=== PATIENT | female | born 1955 | race Caucasian/White ===

== ENCOUNTER 2017-04-11 20:30 | Inpatient (IN) | payer OTHER ==
[2017-04-11 21:58] LABS: URINE BLOOD (Dip) POC Negative (NEGATIVE); URINE GLUCOSE (Dip) POC Negative (NEGATIVE); URINE KETONES (Dip) POC Negative (NEGATIVE); URINE LEUKOCYTE EST (Dip) POC Trace (NEGATIVE); URINE NITRITE (Dip) POC Negative (NEGATIVE); URINE TOTAL PROTEIN POC 3+ (NEGATIVE)
[2017-04-11] MEDS: ONDANSETRON 4 MG INJ IV (22:13)
[2017-04-11] MEDS: SOD CHLORIDE 0.9% 1,000 ML IV (22:14)
[2017-04-11] MEDS: morphine 4 MG/ML VIAL IV ×2 (22:14→23:26)
[2017-04-11 22:15] LABS: ADD UMIC YES; UR ASCORBIC ACID 40 mg/dL (NEGATIVE); UR BILIRUBIN (Dip) NEGATIVE (NEGATIVE); UR BLOOD (Dip) NEGATIVE (NEGATIVE); UR CLARITY CLEAR (CLEAR); UR COLOR YELLOW (YELLOW); UR GLUCOSE (Dip) 1+ mg/dL (NEGATIVE); UR KETONES (Dip) NEGATIVE (NEGATIVE); UR LEUKOCYTE ESTERASE (Dip) 1+ Leu/ul (NEGATIVE); UR NITRITE (Dip) NEGATIVE (NEGATIVE); UR RBC 0 /HPF (0-5); UR SPECIFIC GRAVITY (Dip) 1.011 (1.003-1.030); UR TOTAL PROTEIN (Dip) 3+ mg/dl (NEGATIVE); UR UROBILINOGEN (Dip) NEGATIVE (NEGATIVE); UR WBC 10 /HPF (0-5)
[2017-04-11 22:35] LABS: ADD MAN DIFF? NO
[2017-04-11 22:39] LABS: EOSINOPHILS # 0.4 10^3/ul (0.0-0.5); EOSINOPHILS % 6.4 % (0.0-7.0); HEMATOCRIT 25.8 % (37.0-47.0); HEMOGLOBIN 7.8 g/dl (12.0-16.0); LYMPHOCYTES # 2.3 10^3/ul (0.8-2.9); LYMPHOCYTES % 34.1 % (15.0-51.0); MEAN CORPUSCULAR HEMOGLOBIN 27.9 pg (29.0-33.0); MEAN CORPUSCULAR HGB CONC 30.2 g/dl (32.0-37.0); MEAN CORPUSCULAR VOLUME 92.1 fl (82.0-101.0); MEAN PLATELET VOLUME 9.8 fl (7.4-10.4); MONOCYTE # 0.7 10^3/ul (0.3-0.9); MONOCYTES % 9.6 % (0.0-11.0); NEUTROPHIL # 3.3 10^3/ul (1.6-7.5); NEUTROPHILS % 48.7 % (39.0-77.0); NUCLEATED RED BLOOD CELLS% 0.3 /100WBC (0.0-0.0); PLATELET COUNT 235 10^3/UL (140-415); RED CELL DISTRIBUTION WIDTH 16.4 % (11.5-14.5)
[2017-04-11 22:39] LABS: WHITE BLOOD COUNT 6.8 10^3/ul (4.8-10.8)
[2017-04-11 23:03] LABS: LACTIC ACID 0.7 mmol/L (0.5-2.0)
[2017-04-11 23:04] LABS: ALANINE AMINOTRANSFERASE 47 IU/L (13-69); ALBUMIN 2.9 g/dl (3.3-4.9); ALBUMIN/GLOBULIN RATIO 0.82; ALKALINE PHOSPHATASE 111 IU/L (42-121); ANION GAP 18 (8-16); ASPARTATE AMINO TRANSFERASE 22 IU/L (15-46); BLOOD UREA NITROGEN 119 mg/dl (7-20); CALCIUM 8.3 mg/dl (8.4-10.2); CARBON DIOXIDE 12 mmol/L (21-31); CHLORIDE 109 mmol/L (97-110); CREATININE 5.78 mg/dl (0.44-1.00); GLUCOSE 110 mg/dl (70-220); LIPASE 325 U/L (23-300); POTASSIUM 5.1 mmol/L (3.5-5.1); SODIUM 134 mmol/L (135-144); TOTAL PROTEIN 6.4 g/dl (6.1-8.1)
[2017-04-11 23:15] LABS: TROPONIN-I 0.018 ng/ml (0.00-0.12)
[2017-04-11] MEDS ORDERED: ACETAMINOPHEN 325 MG TAB PO (23:30)
[2017-04-11] MEDS ORDERED: ONDANSETRON 4 MG INJ IV (23:30)
[2017-04-11] MEDS: NA BICARBONATE 8.4% 50 ML SYG IV (23:49)
[2017-04-12] MEDS ORDERED: DIPHENHYDRAMINE 50 MG INJ (03:21)
[2017-04-12] MEDS: DIPHENHYDRAMINE 50 MG INJ IV (03:29)
[2017-04-12 07:33] LABS: ALANINE AMINOTRANSFERASE 61 IU/L (13-69); ALBUMIN 3.1 g/dl (3.3-4.9); ALBUMIN/GLOBULIN RATIO 0.79; ALKALINE PHOSPHATASE 126 IU/L (42-121); ANION GAP 19 (8-16); ASPARTATE AMINO TRANSFERASE 41 IU/L (15-46); CALCIUM 8.2 mg/dl (8.4-10.2); CARBON DIOXIDE 13 mmol/L (21-31); CHLORIDE 111 mmol/L (97-110); CREATININE 5.92 mg/dl (0.44-1.00); GLUCOSE 152 mg/dl (70-220); PHOSPHORUS 8.6 mg/dl (2.5-4.9); POTASSIUM 5.4 mmol/L (3.5-5.1); SODIUM 138 mmol/L (135-144)
[2017-04-12 07:43] LABS: BLOOD UREA NITROGEN 118 mg/dl (7-20)
[2017-04-12] MEDS ORDERED: FUROSEMIDE 40 MG INJ (07:53)
[2017-04-12] MEDS: FUROSEMIDE 20 MG INJ IV ×2 (08:45→21:00)
[2017-04-12] MEDS: CITRIC ACID/SODIUM CITRATE 15 ML CUP PO ×2 (09:00→13:00)
[2017-04-12] MEDS ORDERED: GLUCOSE GEL 15 GRAM TUBE BUCCAL (15:30)
[2017-04-12] MEDS ORDERED: GLUCOSE GEL 15 GRAM TUBE PO ×2 (15:30)
[2017-04-12] MEDS ORDERED: ACETAMINOPHEN 325 MG TAB PO (15:30)
[2017-04-12] MEDS ORDERED: DOCUSATE SODIUM 100 MG CAP PO (15:30)
[2017-04-12] MEDS ORDERED: GLUCAGON 1 MG INJ IM (15:30)
[2017-04-12] MEDS ORDERED: BISACODYL (EC) 5 MG TAB PO (15:30)
[2017-04-12] MEDS ORDERED: DEXTROSE 50% 50 ML SYRINGE IV ×2 (15:30)
[2017-04-12] MEDS ORDERED: NACL 0.9% 3 ML SYG IV (15:30)
[2017-04-12] MEDS ORDERED: DIPHENHYD/MYLANTA/LIDO (PO SYG) PO (15:30)
[2017-04-12 17:06] LABS: HAAIG REFLEX REFLEX FILED
[2017-04-12] MEDS: INSULIN ASPART [NOVOLOG] 3 ML PEN SC (17:35)
[2017-04-12] MEDS ORDERED: INSULIN ASPART [NOVOLOG] 3 ML PEN SC (17:35)
[2017-04-12] MEDS: CALCIUM ACETATE 667 MG CAP PO (17:35)
[2017-04-12 18:01] LABS: HEPATITIS B SURFACE ANTIGEN NEGATIVE (NEGATIVE)
[2017-04-12 18:19] LABS: HEPATITIS B CORE ANTIBODY NEGATIVE (NEGATIVE); HEPATITIS C VIRAL ANTIBODY NEGATIVE (NEGATIVE)
[2017-04-12] MEDS: MAGNESIUM HYDROXIDE 30ML CUP PO (21:10)
[2017-04-12] MEDS: GABAPENTIN 300 MG CAP PO (21:10)
[2017-04-12] MEDS: FERROUS SULFATE (EC) 325 MG TAB PO (21:10)
[2017-04-12] MEDS: INSULIN GLARGINE [LANtus] 3 ML PEN SC (21:43)
[2017-04-12] MEDS: EPOETIN 10000 UNITS/1 ML INJ (ESRD) SC (23:22)
[2017-04-13] MEDS: CITRIC ACID/SODIUM CITRATE 15 ML CUP PO ×6 (00:38→20:34)
[2017-04-13] MEDS: DIPHENHYDRAMINE 2.5 MG/ML 5ML CUP PO (00:39)
[2017-04-13] MEDS: ACCU-CHEK XX (02:00)
[2017-04-13] MEDS: FUROSEMIDE 20 MG INJ IV ×2 (05:16→17:44)
[2017-04-13] MEDS: PANTOPRAZOLE (EC) 40 MG TAB PO (05:17)
[2017-04-13] MEDS: INSULIN ASPART [NOVOLOG] 3 ML PEN SC ×4 (07:55→20:44)
[2017-04-13] MEDS: CALCIUM ACETATE 667 MG CAP PO ×3 (08:10→17:40)
[2017-04-13] MEDS ORDERED: BISOPROLOL 5 MG TAB PO (09:00)
[2017-04-13] MEDS ORDERED: POTASSIUM CHLORIDE (SR) 20 MEQ TAB PO (09:00)
[2017-04-13] MEDS: ENOXAPARIN 30 MG/0.3 ML SYG SC (09:00)
[2017-04-13] MEDS ORDERED: AMLODIPINE 10 MG TAB PO (09:00)
[2017-04-13] MEDS: GABAPENTIN 300 MG CAP PO ×2 (09:23→20:35)
[2017-04-13] MEDS: FERROUS SULFATE (EC) 325 MG TAB PO ×3 (09:23→20:34)
[2017-04-13] MEDS: ASCORBIC ACID 500 MG TAB PO (09:23)
[2017-04-13] MEDS: BISOPROLOL 5 MG TAB PO (09:23)
[2017-04-13] MEDS: LORATADINE 10 MG TAB PO (09:24)
[2017-04-13] MEDS: AMLODIPINE 10 MG TAB PO (09:24)
[2017-04-13] MEDS: ZINC SULFATE 220 MG CAP PO (09:24)
[2017-04-13 10:42] LABS: HEMOGLOBIN A1C 5.5 % (0-5.9)
[2017-04-13] MEDS: LOSARTAN 50 MG TAB PO (12:11)
[2017-04-13] MEDS: MANNITOL 25% 50 ML INJ IV* (14:02)
[2017-04-13] MEDS: MAGNESIUM HYDROXIDE 30ML CUP PO (20:34)
[2017-04-13] MEDS: INSULIN GLARGINE [LANtus] 3 ML PEN SC (20:49)
[2017-04-13] MEDS: ACETAMINOPHEN 325 MG TAB PO (21:27)
[2017-04-14] MEDS: ACCU-CHEK XX (02:00)
[2017-04-14] MEDS: PANTOPRAZOLE (EC) 40 MG TAB PO (05:47)
[2017-04-14] MEDS: FUROSEMIDE 20 MG INJ IV ×2 (05:50→17:34)
[2017-04-14] MEDS: INSULIN ASPART [NOVOLOG] 3 ML PEN SC ×4 (07:55→20:48)
[2017-04-14 08:13] LABS: ADD MAN DIFF? NO
[2017-04-14 08:31] LABS: BASOPHILS % 0.3 % (0.0-2.0); EOSINOPHILS # 0.2 10^3/ul (0.0-0.5); EOSINOPHILS % 2.2 % (0.0-7.0); HEMATOCRIT 28.2 % (37.0-47.0); HEMOGLOBIN 8.4 g/dl (12.0-16.0); LYMPHOCYTES # 1.4 10^3/ul (0.8-2.9); LYMPHOCYTES % 21.2 % (15.0-51.0); MEAN CORPUSCULAR HEMOGLOBIN 27.7 pg (29.0-33.0); MEAN CORPUSCULAR HGB CONC 29.8 g/dl (32.0-37.0); MEAN CORPUSCULAR VOLUME 93.1 fl (82.0-101.0); MEAN PLATELET VOLUME 9.8 fl (7.4-10.4); MONOCYTE # 0.8 10^3/ul (0.3-0.9); MONOCYTES % 11.4 % (0.0-11.0); NEUTROPHIL # 4.3 10^3/ul (1.6-7.5); NEUTROPHILS % 64.2 % (39.0-77.0); NUCLEATED RED BLOOD CELLS # 0.1 10^3/ul (0.0-0.0); NUCLEATED RED BLOOD CELLS% 0.7 /100WBC (0.0-0.0); PLATELET COUNT 141 10^3/UL (140-415); RED BLOOD COUNT 3.03 10^6/ul (4.20-5.40); RED CELL DISTRIBUTION WIDTH 17.2 % (11.5-14.5)
[2017-04-14 08:31] LABS: WHITE BLOOD COUNT 6.8 10^3/ul (4.8-10.8)
[2017-04-14 08:49] LABS: ANION GAP 19 (8-16); BLOOD UREA NITROGEN 92 mg/dl (7-20); CALCIUM 8.4 mg/dl (8.4-10.2); CARBON DIOXIDE 21 mmol/L (21-31); CHLORIDE 108 mmol/L (97-110); CREATININE 5.16 mg/dl (0.44-1.00); GLUCOSE 123 mg/dl (70-220); POTASSIUM 4.5 mmol/L (3.5-5.1); SODIUM 143 mmol/L (135-144)
[2017-04-14] MEDS: CALCIUM ACETATE 667 MG CAP PO ×3 (09:13→17:33)
[2017-04-14] MEDS: CITRIC ACID/SODIUM CITRATE 15 ML CUP PO ×3 (09:13→20:34)
[2017-04-14] MEDS: LORATADINE 10 MG TAB PO (09:13)
[2017-04-14] MEDS: FERROUS SULFATE (EC) 325 MG TAB PO ×3 (09:14→20:33)
[2017-04-14] MEDS: GABAPENTIN 300 MG CAP PO ×2 (09:14→20:33)
[2017-04-14] MEDS: LOSARTAN 50 MG TAB PO (09:14)
[2017-04-14] MEDS: ASCORBIC ACID 500 MG TAB PO (09:14)
[2017-04-14] MEDS: BISOPROLOL 5 MG TAB PO (09:14)
[2017-04-14] MEDS: ZINC SULFATE 220 MG CAP PO (09:14)
[2017-04-14] MEDS: AMLODIPINE 10 MG TAB PO (09:17)
[2017-04-14] MEDS: ENOXAPARIN 30 MG/0.3 ML SYG SC (09:29)
[2017-04-14 09:46] LABS: B-TYPE NATRIURETIC PEPTIDE 36600 PG/ML (0-125)
[2017-04-14] MEDS: MAGNESIUM HYDROXIDE 30ML CUP PO ×2 (20:34→21:00)
[2017-04-14] MEDS: INSULIN GLARGINE [LANtus] 3 ML PEN SC (20:39)
[2017-04-15] MEDS: ACCU-CHEK XX (03:31)
[2017-04-15] MEDS: FUROSEMIDE 20 MG INJ IV ×2 (06:42→17:32)
[2017-04-15] MEDS: PANTOPRAZOLE (EC) 40 MG TAB PO (06:44)
[2017-04-15] MEDS: INSULIN ASPART [NOVOLOG] 3 ML PEN SC ×4 (07:55→20:56)
[2017-04-15] MEDS: ASCORBIC ACID 500 MG TAB PO (08:54)
[2017-04-15] MEDS: CALCIUM ACETATE 667 MG CAP PO ×3 (08:54→17:31)
[2017-04-15] MEDS: CITRIC ACID/SODIUM CITRATE 15 ML CUP PO (08:54)
[2017-04-15] MEDS: LORATADINE 10 MG TAB PO (08:54)
[2017-04-15] MEDS: FERROUS SULFATE (EC) 325 MG TAB PO ×3 (08:55→21:00)
[2017-04-15] MEDS: ZINC SULFATE 220 MG CAP PO (08:55)
[2017-04-15] MEDS: GABAPENTIN 300 MG CAP PO ×2 (08:55→21:00)
[2017-04-15] MEDS: BISOPROLOL 5 MG TAB PO (08:55)
[2017-04-15] MEDS: AMLODIPINE 10 MG TAB PO (09:00)
[2017-04-15] MEDS: LOSARTAN 50 MG TAB PO (09:00)
[2017-04-15] MEDS: ENOXAPARIN 30 MG/0.3 ML SYG SC (09:12)
[2017-04-15] MEDS: ACETAMINOPHEN 325 MG TAB PO (12:33)
[2017-04-15] MEDS: EPOETIN 10000 UNITS/1 ML INJ (ESRD) SC (17:31)
[2017-04-15 18:17] LABS: PTH CALCIUM 8.1 mg/dL (8.6-10.4)
[2017-04-15 20:13] LABS: ABNORMAL IP MESSAGE 1; HEMATOCRIT 19.2 % (37.0-47.0); MEAN CORPUSCULAR HEMOGLOBIN 28.9 pg (29.0-33.0); MEAN CORPUSCULAR HGB CONC 30.2 g/dl (32.0-37.0); MEAN CORPUSCULAR VOLUME 95.5 fl (82.0-101.0); MEAN PLATELET VOLUME 10.7 fl (7.4-10.4); NUCLEATED RED BLOOD CELLS% 1.8 /100WBC (0.0-0.0); RED BLOOD COUNT 2.01 10^6/ul (4.20-5.40); RED CELL DISTRIBUTION WIDTH 17.4 % (11.5-14.5)
[2017-04-15 20:13] LABS: WHITE BLOOD COUNT 8.7 10^3/ul (4.8-10.8)
[2017-04-15 20:30] LABS: ADD MAN DIFF? YES; PLATELET COUNT 52 10^3/UL (140-415); POSITIVE DIFF @See below
[2017-04-15 20:34] LABS: HEMOGLOBIN 5.8 g/dl (12.0-16.0)
[2017-04-15 20:49] LABS: ANISOCYTOSIS 1+ (0-0); EOSINOPHILS % (M) 2 % (0-7); ERYTHROBLAST% (NRBC) (M) 4 % (0-0); GIANT THROMBO% (M) 1 % (0-0); LYMPHOCYTES #M 5.8 10^3/ul (0.8-2.9); LYMPHOCYTES % (M) 67 % (15-51); MICROCYTOSIS 1+ (0-0); MONOCYTE #M 0.1 10^3/ul (0.3-0.9); MONOCYTES % (M) 2 % (0-11); PLATELET MORPHOLOGY COMMENT @See below; REACTIVE LYMPHOCYTES% (M) 1 % (0-0); SEGMENTED NEUTROPHILS (M) % 28 % (39-77); SMUDGE%M 17 % (0-0)
[2017-04-15] MEDS: INSULIN GLARGINE [LANtus] 3 ML PEN SC (20:57)
[2017-04-15] MEDS: SOD CHLORIDE 0.9% 500 ML IV (20:59)
[2017-04-15] MEDS: MAGNESIUM HYDROXIDE 30ML CUP PO (21:00)
[2017-04-15 21:19] LABS: PATH REVIEW? YES
[2017-04-15 21:58] LABS: AADO2 Arterial 31.3 mmHg (7.0-24.0); Arterial Blood Gas Oxygen Sat 98.4 mmHG (95.0-98.0); Arterial COHb 0.3 % (0.0-3.0); Arterial Fraction of Oxyhgb 97.7 % (93.0-99.0); Arterial HCO3 17.4 mmol/L (22.0-26.0); Arterial MetHb 0.4 % (0.0-1.5); Arterial Total Hemglobin 6.7 g/dl (12.0-18.0); Arterial pCO2 34.5 mmhg (35-45); MODE NASAL CANNULA; Site LB
[2017-04-15] MEDS: ALBUMIN HUMAN 25% 50 ML IV (23:13)
[2017-04-15] MEDS: SOD CHLORIDE 0.9% 1,000 ML IV (23:14)
[2017-04-16] MEDS ORDERED: NORepinephrine 8MG/250 ML (PMX 250 ML (01:29)
[2017-04-16] MEDS: NORepinephrine 8MG/250 ML (PMX 250 ML IV (01:39)
[2017-04-16] MEDS: ACCU-CHEK XX (02:00)
[2017-04-16 04:32] LABS: IMMEDIATE SPIN CROSSMATCH 1
[2017-04-16] MEDS: FUROSEMIDE 20 MG INJ IV (05:24)
[2017-04-16] MEDS: PANTOPRAZOLE (EC) 40 MG TAB PO (05:25)
[2017-04-16 05:54] LABS: ADD MAN DIFF? NO
[2017-04-16 06:07] LABS: WHITE BLOOD COUNT 14.2 10^3/ul (4.8-10.8)
[2017-04-16 06:07] LABS: ABNORMAL IP MESSAGE 1; HEMATOCRIT 30.7 % (37.0-47.0); HEMOGLOBIN 9.8 g/dl (12.0-16.0); MEAN CORPUSCULAR HEMOGLOBIN 30.1 pg (29.0-33.0); MEAN CORPUSCULAR HGB CONC 31.9 g/dl (32.0-37.0); MEAN CORPUSCULAR VOLUME 94.2 fl (82.0-101.0); MEAN PLATELET VOLUME 11.7 fl (7.4-10.4); NUCLEATED RED BLOOD CELLS% 4.9 /100WBC (0.0-0.0); PLATELET COUNT 63 10^3/UL (140-415); RED BLOOD COUNT 3.26 10^6/ul (4.20-5.40); RED CELL DISTRIBUTION WIDTH 15.9 % (11.5-14.5)
[2017-04-16 06:14] LABS: POSITIVE DIFF @See below
[2017-04-16 06:30] LABS: INR 2.33; PROTIME 26.2 Sec (11.9-14.9)
[2017-04-16 06:45] LABS: PHOSPHORUS 8.1 mg/dl (2.5-4.9)
[2017-04-16 06:57] LABS: ANION GAP 18 (8-16); BLOOD UREA NITROGEN 57 mg/dl (7-20); CALCIUM 8.5 mg/dl (8.4-10.2); CARBON DIOXIDE 20 mmol/L (21-31); CHLORIDE 107 mmol/L (97-110); CREATININE 4.12 mg/dl (0.44-1.00); GLUCOSE 92 mg/dl (70-220); POTASSIUM 4.4 mmol/L (3.5-5.1); SODIUM 141 mmol/L (135-144)
[2017-04-16] MEDS: INSULIN ASPART [NOVOLOG] 3 ML PEN SC ×4 (07:35→21:00)
[2017-04-16] MEDS: CALCIUM ACETATE 667 MG CAP PO ×3 (07:35→17:14)
[2017-04-16 08:01] LABS: PTH INTACT 80 pg/mL (14-64)
[2017-04-16 08:04] LABS: ANISOCYTOSIS 2+ (0-0); BAND NEUTROPHILS #M 3.6 10^3/ul (0.0-0.6); BAND NEUTROPHILS % (M) 26 % (0-4); BURR CELLS 2+ (0-0); ERYTHROBLAST% (NRBC) (M) 5 % (0-0); LYMPHOCYTES #M 1.5 10^3/ul (0.8-2.9); LYMPHOCYTES % (M) 11 % (15-51); MICROCYTOSIS 1+ (0-0); MONOCYTE #M 0.1 10^3/ul (0.3-0.9); MONOCYTES % (M) 1 % (0-11); PLATELET ESTIMATE DECREASED; POIKILOCYTOSIS 3+ (0-0); POLYCHROMASIA 2+ (0-0); SEG NEUT #M 9.3 10^3/ul (1.7-7.5); SEGMENTED NEUTROPHILS (M) % 62 % (39-77); SMUDGE%M 2 % (0-0)
[2017-04-16] MEDS: BISOPROLOL 5 MG TAB PO (09:00)
[2017-04-16] MEDS: ASCORBIC ACID 500 MG TAB PO (09:00)
[2017-04-16] MEDS: ZINC SULFATE 220 MG CAP PO (09:00)
[2017-04-16] MEDS: AMLODIPINE 10 MG TAB PO (09:00)
[2017-04-16] MEDS: FERROUS SULFATE (EC) 325 MG TAB PO ×3 (09:00→21:00)
[2017-04-16] MEDS: LOSARTAN 50 MG TAB PO (09:00)
[2017-04-16] MEDS: SOD CHLORIDE 0.9% 1,000 ML IV (10:00)
[2017-04-16] MEDS: ALBUMIN HUMAN 25% 100 ML IV ×2 (11:06→21:14)
[2017-04-16 13:32] LABS: OCCULT BLOOD STOOL POSITIVE (NEGATIVE)
[2017-04-16] MEDS: metroNIDAZOLE 500 MG TAB PO ×2 (14:00→22:00)
[2017-04-16 14:38] LABS: PATH REVIEW CH
[2017-04-16] MEDS ORDERED: VANCOMYCIN IV PER PHARMACY XX (15:30)
[2017-04-16 15:53] LABS: ADD MAN DIFF? NO
[2017-04-16 15:56] LABS: WHITE BLOOD COUNT 12.3 10^3/ul (4.8-10.8)
[2017-04-16 15:56] LABS: ABNORMAL IP MESSAGE 1; HEMATOCRIT 31.8 % (37.0-47.0); HEMOGLOBIN 10.4 g/dl (12.0-16.0); MEAN CORPUSCULAR HEMOGLOBIN 29.1 pg (29.0-33.0); MEAN CORPUSCULAR HGB CONC 32.7 g/dl (32.0-37.0); MEAN CORPUSCULAR VOLUME 89.1 fl (82.0-101.0); MEAN PLATELET VOLUME 11.3 fl (7.4-10.4); NUCLEATED RED BLOOD CELLS% 1.2 /100WBC (0.0-0.0); PLATELET COUNT 61 10^3/UL (140-415); RED BLOOD COUNT 3.57 10^6/ul (4.20-5.40); RED CELL DISTRIBUTION WIDTH 16.5 % (11.5-14.5)
[2017-04-16 16:01] LABS: POSITIVE DIFF @See below
[2017-04-16 16:03] LABS: AADO2 Arterial 64.3 mmHg (7.0-24.0); Allen Test ACCEPTAB; Arterial Base Excess -2.8 mmol/L (-3.0-3); Arterial Blood Gas Oxygen Sat 95.4 mmHG (95.0-98.0); Arterial COHb 0 % (0.0-3.0); Arterial Fraction of Oxyhgb 95.2 % (93.0-99.0); Arterial HCO3 22.5 mmol/L (22.0-26.0); Arterial MetHb 0.2 % (0.0-1.5); Arterial Total Hemglobin 10.8 g/dl (12.0-18.0); Arterial pCO2 41.4 mmhg (35-45); MODE NASAL CANNULA; Site Left Radial
[2017-04-16 16:21] LABS: AMMONIA 16 umol/l (9-30); AMYLASE 256 U/L (11-123)
[2017-04-16 16:21] LABS: CREATINE KINASE 222 IU/L (23-200); LIPASE 79 U/L (23-300)
[2017-04-16 16:34] LABS: CK INDEX 1.4; CK-MB 3.18 ng/ml (0.0-2.4)
[2017-04-16 16:59] LABS: ANISOCYTOSIS 1+ (0-0); BAND NEUTROPHILS #M 3.6 10^3/ul (0.0-0.6); BAND NEUTROPHILS % (M) 30 % (0-4); ERYTHROBLAST% (NRBC) (M) 1 % (0-0); HYPOCHROMASIA 1+ (0-0); LYMPHOCYTES #M 1.4 10^3/ul (0.8-2.9); LYMPHOCYTES % (M) 12 % (15-51); METAMYELOCYTES #M 0.3 10^3/ul (0.0-0.0); METAMYELOCYTES %M 3 % (0-0); MICROCYTOSIS 1+ (0-0); MONOCYTE #M 0.6 10^3/ul (0.3-0.9); MONOCYTES % (M) 5 % (0-11); PLATELET ESTIMATE DECREASED; POLYCHROMASIA 1+ (0-0); REACTIVE LYMPHOCYTES #M 0.1 10^3/ul (0.0-0.0); REACTIVE LYMPHOCYTES% (M) 1 % (0-0); SEG NEUT #M 6.5 10^3/ul (1.7-7.5); SEGMENTED NEUTROPHILS (M) % 49 % (39-77)
[2017-04-16] MEDS: PIPER-TAZO 2.25 GM (PMX) 50 ML IVPB ×2 (17:08→22:51)
[2017-04-16] MEDS: PHYTONADIONE 10 MG/ML INJ SC (17:09)
[2017-04-16] MEDS: VANCOMYCIN 1.5 GM in DEXTROSE 5% 500 ML IVPB (18:39)
[2017-04-16] MEDS: INFLUENZA VIRUS VACCINE 0.5 ML SYG IM* (18:41)
[2017-04-16] MEDS: MAGNESIUM HYDROXIDE 30ML CUP PO (21:00)
[2017-04-16] MEDS: INSULIN GLARGINE [LANtus] 3 ML PEN SC (21:17)
[2017-04-17] MEDS: LORAZEPAM 2 MG INJ IV (00:21)
[2017-04-17 01:51] LABS: CREATINE KINASE 322 IU/L (23-200)
[2017-04-17] MEDS: ACCU-CHEK XX (02:00)
[2017-04-17 02:02] LABS: CK INDEX 0.9; CK-MB 2.86 ng/ml (0.0-2.4)
[2017-04-17 02:10] LABS: TROPONIN-I 0.199 ng/ml (0.00-0.12)
[2017-04-17] MEDS: ALBUMIN HUMAN 25% 100 ML IV (03:00)
[2017-04-17] MEDS: PANTOPRAZOLE (EC) 40 MG TAB PO (05:36)
[2017-04-17] MEDS: metroNIDAZOLE 500 MG TAB PO ×3 (05:36→22:07)
[2017-04-17] MEDS: PIPER-TAZO 2.25 GM (PMX) 50 ML IVPB ×3 (05:39→22:07)
[2017-04-17 05:59] LABS: ABNORMAL IP MESSAGE 1; HEMATOCRIT 25.2 % (37.0-47.0); HEMOGLOBIN 8.2 g/dl (12.0-16.0); MEAN CORPUSCULAR HEMOGLOBIN 29.1 pg (29.0-33.0); MEAN CORPUSCULAR HGB CONC 32.5 g/dl (32.0-37.0); MEAN CORPUSCULAR VOLUME 89.4 fl (82.0-101.0); MEAN PLATELET VOLUME 11.6 fl (7.4-10.4); NUCLEATED RED BLOOD CELLS% 0.7 /100WBC (0.0-0.0); PLATELET COUNT 57 10^3/UL (140-415); RED BLOOD COUNT 2.82 10^6/ul (4.20-5.40)
[2017-04-17 05:59] LABS: WHITE BLOOD COUNT 6.7 10^3/ul (4.8-10.8)
[2017-04-17 06:29] LABS: CREATINE KINASE 394 IU/L (23-200)
[2017-04-17 06:30] LABS: ADD MAN DIFF? YES; POSITIVE DIFF @See below
[2017-04-17 06:31] LABS: LACTIC ACID 1.8 mmol/L (0.5-2.0)
[2017-04-17 06:38] LABS: CK INDEX 0.7
[2017-04-17 06:45] LABS: TROPONIN-I 0.224 ng/ml (0.00-0.12)
[2017-04-17 06:57] LABS: ADD UMIC YES; UR AMORPHOUS CRYSTAL FEW /HPF (NONE SEEN); UR ASCORBIC ACID NEGATIVE (NEGATIVE); UR BACTERIA FEW /HPF (NONE SEEN); UR BILIRUBIN (Dip) NEGATIVE (NEGATIVE); UR BLOOD (Dip) 1+ mg/dL (NEGATIVE); UR CLARITY CLOUDY (CLEAR); UR COLOR AMBER (YELLOW); UR GLUCOSE (Dip) NEGATIVE (NEGATIVE); UR KETONES (Dip) NEGATIVE (NEGATIVE); UR LEUKOCYTE ESTERASE (Dip) 3+ Leu/ul (NEGATIVE); UR MUCUS FEW /HPF (NONE SEEN); UR NITRITE (Dip) NEGATIVE (NEGATIVE); UR NONSQUAMOUS EPITHELIAL CELL 2 /HPF (NONE SEEN); UR RBC 29 /HPF (0-5); UR SPECIFIC GRAVITY (Dip) 1.013 (1.003-1.030); UR TOTAL PROTEIN (Dip) 3+ mg/dl (NEGATIVE); UR UROBILINOGEN (Dip) NEGATIVE (NEGATIVE); UR WBC > 182 /HPF (0-5)
[2017-04-17 07:06] LABS: ANION GAP 18 (8-16); BLOOD UREA NITROGEN 81 mg/dl (7-20); CALCIUM 8.4 mg/dl (8.4-10.2); CARBON DIOXIDE 22 mmol/L (21-31); CHLORIDE 106 mmol/L (97-110); CREATININE 4.69 mg/dl (0.44-1.00); GLUCOSE 98 mg/dl (70-220); POTASSIUM 4.2 mmol/L (3.5-5.1); SODIUM 142 mmol/L (135-144)
[2017-04-17 07:16] LABS: MAGNESIUM 2.9 mg/dl (1.7-2.5)
[2017-04-17 07:16] LABS: PHOSPHORUS 4.7 mg/dl (2.5-4.9)
[2017-04-17] MEDS: CALCIUM ACETATE 667 MG CAP PO ×3 (07:35→17:41)
[2017-04-17] MEDS: INSULIN ASPART [NOVOLOG] 3 ML PEN SC ×4 (07:35→21:00)
[2017-04-17] MEDS: ASCORBIC ACID 500 MG TAB PO (09:00)
[2017-04-17] MEDS: FERROUS SULFATE (EC) 325 MG TAB PO ×3 (09:00→21:11)
[2017-04-17] MEDS: ZINC SULFATE 220 MG CAP PO (09:00)
[2017-04-17 09:36] LABS: ANISOCYTOSIS 2+ (0-0); BAND NEUTROPHILS #M 2.6 10^3/ul (0.0-0.6); BAND NEUTROPHILS % (M) 39 % (0-4); BURR CELLS 1+ (0-0); ERYTHROBLAST% (NRBC) (M) 1 % (0-0); GIANT THROMBO% (M) 3 % (0-0); LYMPHOCYTES #M 1.4 10^3/ul (0.8-2.9); LYMPHOCYTES % (M) 21 % (15-51); METAMYELOCYTES %M 1 % (0-0); MICROCYTOSIS 1+ (0-0); MONOCYTE #M 0.2 10^3/ul (0.3-0.9); MONOCYTES % (M) 4 % (0-11); PLATELET ESTIMATE SIG DECREASED; POIKILOCYTOSIS 2+ (0-0); POLYCHROMASIA 1+ (0-0); SEG NEUT #M 2.5 10^3/ul (1.7-7.5); SEGMENTED NEUTROPHILS (M) % 35 % (39-77); SMUDGE%M 3 % (0-0)
[2017-04-17 10:15] LABS: AADO2 Arterial 76.1 mmHg (7.0-24.0); Arterial Base Excess -4.9 mmol/L (-3.0-3); Arterial Blood Gas Oxygen Sat 95.4 mmHG (95.0-98.0); Arterial COHb 0.4 % (0.0-3.0); Arterial Fraction of Oxyhgb 94.7 % (93.0-99.0); Arterial MetHb 0.3 % (0.0-1.5); Arterial Total Hemglobin 8.5 g/dl (12.0-18.0); Arterial pCO2 30.5 mmhg (35-45); MODE NASAL CANNULA; Site Right Brachial
[2017-04-17 10:34] LABS: AHG CROSSMATCH 1 4
[2017-04-17 10:41] LABS: INR 2.05; PROTIME 23.6 Sec (11.9-14.9); PT RATIO 1.8
[2017-04-17] MEDS: EPOETIN 10000 UNITS/1 ML INJ (ESRD) SC (17:42)
[2017-04-17] MEDS: IODIXANOL LOCM 100 ML BTL (17:53)
[2017-04-17] MEDS: SOD CHLORIDE 0.9% 100 ML (17:53)
[2017-04-17 18:49] LABS: WHITE BLOOD COUNT 6.5 10^3/ul (4.8-10.8)
[2017-04-17 18:49] LABS: ABNORMAL IP MESSAGE 1; HEMATOCRIT 22.5 % (37.0-47.0); HEMOGLOBIN 7.4 g/dl (12.0-16.0); MEAN CORPUSCULAR HEMOGLOBIN 29.1 pg (29.0-33.0); MEAN CORPUSCULAR HGB CONC 32.9 g/dl (32.0-37.0); MEAN CORPUSCULAR VOLUME 88.6 fl (82.0-101.0); MEAN PLATELET VOLUME 11.6 fl (7.4-10.4); NUCLEATED RED BLOOD CELLS% 0.5 /100WBC (0.0-0.0); PLATELET COUNT 59 10^3/UL (140-415); RED BLOOD COUNT 2.54 10^6/ul (4.20-5.40); RED CELL DISTRIBUTION WIDTH 17.3 % (11.5-14.5)
[2017-04-17 19:26] LABS: ADD MAN DIFF? YES; POSITIVE DIFF @See below
[2017-04-17 20:05] LABS: ANISOCYTOSIS 1+ (0-0); BAND NEUTROPHILS #M 1.4 10^3/ul (0.0-0.6); BAND NEUTROPHILS % (M) 23 % (0-4); BURR CELLS 2+ (0-0); ERYTHROBLAST% (NRBC) (M) 1 % (0-0); LYMPHOCYTES #M 1.8 10^3/ul (0.8-2.9); LYMPHOCYTES % (M) 28 % (15-51); MICROCYTOSIS 1+ (0-0); MONOCYTE #M 0.5 10^3/ul (0.3-0.9); MONOCYTES % (M) 9 % (0-11); PLATELET ESTIMATE DECREASED; POIKILOCYTOSIS 2+ (0-0); POLYCHROMASIA 1+ (0-0); SEG NEUT #M 2.7 10^3/ul (1.7-7.5); SEGMENTED NEUTROPHILS (M) % 40 % (39-77); SMUDGE%M 3 % (0-0); TARGET CELLS 1+ (0-0)
[2017-04-17] MEDS: INSULIN GLARGINE [LANtus] 3 ML PEN SC (21:00)
[2017-04-17] MEDS: MAGNESIUM HYDROXIDE 30ML CUP PO (21:11)
[2017-04-18] MEDS: ACCU-CHEK XX (02:29)
[2017-04-18 05:35] LABS: WHITE BLOOD COUNT 7.3 10^3/ul (4.8-10.8)
[2017-04-18 05:35] LABS: ABNORMAL IP MESSAGE 1; HEMATOCRIT 22.3 % (37.0-47.0); HEMOGLOBIN 7.3 g/dl (12.0-16.0); MEAN CORPUSCULAR HEMOGLOBIN 29.1 pg (29.0-33.0); MEAN CORPUSCULAR HGB CONC 32.7 g/dl (32.0-37.0); MEAN CORPUSCULAR VOLUME 88.8 fl (82.0-101.0); MEAN PLATELET VOLUME 12.1 fl (7.4-10.4); PLATELET COUNT 48 10^3/UL (140-415); RED BLOOD COUNT 2.51 10^6/ul (4.20-5.40); RED CELL DISTRIBUTION WIDTH 17.5 % (11.5-14.5)
[2017-04-18] MEDS: metroNIDAZOLE 500 MG TAB PO (05:43)
[2017-04-18] MEDS: PANTOPRAZOLE (EC) 40 MG TAB PO (05:43)
[2017-04-18 05:58] LABS: ADD MAN DIFF? YES; POSITIVE DIFF @See below
[2017-04-18] MEDS: PIPER-TAZO 2.25 GM (PMX) 50 ML IVPB ×3 (05:59→22:12)
[2017-04-18 06:07] LABS: ALANINE AMINOTRANSFERASE 722 IU/L (13-69); ALBUMIN 2.6 g/dl (3.3-4.9); ALBUMIN/GLOBULIN RATIO 1.13; ALKALINE PHOSPHATASE 72 IU/L (42-121); ANION GAP 16 (8-16); BILIRUBIN,INDIRECT 0.4 mg/dl (0-1.1); BILIRUBIN,TOTAL 0.4 mg/dl (0.2-1.3); BLOOD UREA NITROGEN 63 mg/dl (7-20); CARBON DIOXIDE 23 mmol/L (21-31); CHLORIDE 109 mmol/L (97-110); CREATININE 4.18 mg/dl (0.44-1.00); GLUCOSE 147 mg/dl (70-220); POTASSIUM 3.3 mmol/L (3.5-5.1); SODIUM 145 mmol/L (135-144); TOTAL PROTEIN 4.9 g/dl (6.1-8.1)
[2017-04-18 06:15] LABS: MAGNESIUM 2.7 mg/dl (1.7-2.5)
[2017-04-18 06:15] LABS: PHOSPHORUS 3.3 mg/dl (2.5-4.9)
[2017-04-18 06:25] LABS: ASPARTATE AMINO TRANSFERASE 1017 IU/L (15-46)
[2017-04-18 06:29] LABS: VANCOMYCIN,RANDOM 17.9 ug/ml
[2017-04-18] MEDS: INSULIN ASPART [NOVOLOG] 3 ML PEN SC ×4 (07:35→20:32)
[2017-04-18] MEDS: ASCORBIC ACID 500 MG TAB PO (08:11)
[2017-04-18] MEDS: ZINC SULFATE 220 MG CAP PO (08:11)
[2017-04-18] MEDS: CALCIUM ACETATE 667 MG CAP PO ×3 (08:11→18:54)
[2017-04-18] MEDS: FERROUS SULFATE (EC) 325 MG TAB PO (08:54)
[2017-04-18 09:51] LABS: ANISOCYTOSIS 1+ (0-0); BAND NEUTROPHILS #M 2.2 10^3/ul (0.0-0.6); BAND NEUTROPHILS % (M) 31 % (0-4); BURR CELLS 1+ (0-0); EOSINOPHILS % (M) 1 % (0-7); ERYTHROBLAST% (NRBC) (M) 2 % (0-0); LYMPHOCYTES #M 2.7 10^3/ul (0.8-2.9); LYMPHOCYTES % (M) 37 % (15-51); METAMYELOCYTES #M 0.1 10^3/ul (0.0-0.0); METAMYELOCYTES %M 2 % (0-0); MICROCYTOSIS 1+ (0-0); MONOCYTE #M 0.1 10^3/ul (0.3-0.9); MONOCYTES % (M) 2 % (0-11); PLATELET ESTIMATE SIG DECREASED; POIKILOCYTOSIS 2+ (0-0); POLYCHROMASIA 2+ (0-0); SEG NEUT #M 2.1 10^3/ul (1.7-7.5); SEGMENTED NEUTROPHILS (M) % 27 % (39-77); SMUDGE%M 10 % (0-0)
[2017-04-18] MEDS: POTASSIUM CHLORIDE 30 MEQ in DEXTROSE 5% 250 ML IVPB (11:39)
[2017-04-18 12:37] LABS: INR 1.59; PARTIAL THROMBOPLASTIN TIME 36.7 Sec (25.0-35.0); PROTIME 19.3 Sec (11.9-14.9); PT RATIO 1.5
[2017-04-18] MEDS: VANCOMYCIN 750 MG in DEXTROSE 5% 150 ML IVPB (20:26)
[2017-04-18] MEDS: INSULIN GLARGINE [LANtus] 3 ML PEN SC (20:36)
[2017-04-19] MEDS: ACCU-CHEK XX (01:22)
[2017-04-19] MEDS: PANTOPRAZOLE (EC) 40 MG TAB PO (05:59)
[2017-04-19] MEDS: PIPER-TAZO 2.25 GM (PMX) 50 ML IVPB (05:59)
[2017-04-19 06:12] LABS: INR 1.47; PROTIME 18.1 Sec (11.9-14.9); PT RATIO 1.4
[2017-04-19 06:13] LABS: PARTIAL THROMBOPLASTIN TIME 36.6 Sec (25.0-35.0)
[2017-04-19 06:41] LABS: MAGNESIUM 3.3 mg/dl (1.7-2.5)
[2017-04-19] MEDS: ALBUMIN HUMAN 25% 100 ML IV (06:41)
[2017-04-19] MEDS: INSULIN ASPART [NOVOLOG] 3 ML PEN SC ×4 (07:35→21:00)
[2017-04-19 08:58] LABS: ABNORMAL IP MESSAGE 1; HEMATOCRIT 21.6 % (37.0-47.0); MEAN CORPUSCULAR HEMOGLOBIN 28.5 pg (29.0-33.0); MEAN CORPUSCULAR HGB CONC 31.9 g/dl (32.0-37.0); MEAN CORPUSCULAR VOLUME 89.3 fl (82.0-101.0); MEAN PLATELET VOLUME 12.6 fl (7.4-10.4); PLATELET COUNT 42 10^3/UL (140-415); RED BLOOD COUNT 2.42 10^6/ul (4.20-5.40); RED CELL DISTRIBUTION WIDTH 17.5 % (11.5-14.5)
[2017-04-19 08:58] LABS: WHITE BLOOD COUNT 4.1 10^3/ul (4.8-10.8)
[2017-04-19] MEDS: ZINC SULFATE 220 MG CAP PO (08:59)
[2017-04-19] MEDS: ASCORBIC ACID 500 MG TAB PO (08:59)
[2017-04-19] MEDS: CALCIUM ACETATE 667 MG CAP PO ×3 (08:59→17:27)
[2017-04-19 09:01] LABS: ADD MAN DIFF? YES; HEMOGLOBIN 6.9 g/dl (12.0-16.0); POSITIVE DIFF @See below
[2017-04-19 09:58] LABS: ALANINE AMINOTRANSFERASE 609 IU/L (13-69); ALBUMIN 2.5 g/dl (3.3-4.9); ALBUMIN/GLOBULIN RATIO 0.96; ALKALINE PHOSPHATASE 76 IU/L (42-121); ANION GAP 17 (8-16); ASPARTATE AMINO TRANSFERASE 621 IU/L (15-46); BILIRUBIN,INDIRECT 0.5 mg/dl (0-1.1); BILIRUBIN,TOTAL 0.5 mg/dl (0.2-1.3); BLOOD UREA NITROGEN 78 mg/dl (7-20); CALCIUM 8.1 mg/dl (8.4-10.2); CARBON DIOXIDE 22 mmol/L (21-31); CHLORIDE 111 mmol/L (97-110); CREATININE 4.96 mg/dl (0.44-1.00); GLUCOSE 119 mg/dl (70-220); POTASSIUM 3.6 mmol/L (3.5-5.1); SODIUM 146 mmol/L (135-144); TOTAL PROTEIN 5.1 g/dl (6.1-8.1)
[2017-04-19 11:28] LABS: WHITE BLOOD COUNT 5.2 10^3/ul (4.8-10.8)
[2017-04-19 11:28] LABS: ABNORMAL IP MESSAGE 1; HEMATOCRIT 22.9 % (37.0-47.0); HEMOGLOBIN 7.3 g/dl (12.0-16.0); MEAN CORPUSCULAR HEMOGLOBIN 28.7 pg (29.0-33.0); MEAN CORPUSCULAR HGB CONC 31.9 g/dl (32.0-37.0); MEAN CORPUSCULAR VOLUME 90.2 fl (82.0-101.0); MEAN PLATELET VOLUME 11.1 fl (7.4-10.4); PLATELET COUNT 39 10^3/UL (140-415); RED BLOOD COUNT 2.54 10^6/ul (4.20-5.40); RED CELL DISTRIBUTION WIDTH 17.9 % (11.5-14.5)
[2017-04-19 11:47] LABS: POSITIVE DIFF @See below
[2017-04-19 11:48] LABS: ADD MAN DIFF? YES
[2017-04-19] MEDS: MEROPENEM 1 GM/50ML(PMX) 50 ML IVPB ×2 (12:01→21:11)
[2017-04-19] MEDS: PROPOFOL 40 ML (12:49)
[2017-04-19] MEDS: PHENYLephrine (100 MCG/ML) 5ML SYG (12:49)
[2017-04-19 13:37] LABS: ANISOCYTOSIS 1+ (0-0); BAND NEUTROPHILS #M 0.2 10^3/ul (0.0-0.6); BAND NEUTROPHILS % (M) 6 % (0-4); EOSINOPHILS % (M) 2 % (0-7); GIANT THROMBO% (M) 4 % (0-0); HYPOCHROMASIA 1+ (0-0); LYMPHOCYTES #M 0.3 10^3/ul (0.8-2.9); LYMPHOCYTES % (M) 9 % (15-51); MONOCYTE #M 0.1 10^3/ul (0.3-0.9); MONOCYTES % (M) 4 % (0-11); OVALOCYTES 1+ (0-0); PLATELET ESTIMATE DECREASED; POIKILOCYTOSIS 1+ (0-0); POLYCHROMASIA 1+ (0-0); SEG NEUT #M 3.2 10^3/ul (1.7-7.5); SEGMENTED NEUTROPHILS (M) % 79 % (39-77)
[2017-04-19 13:55] LABS: ANISOCYTOSIS 2+ (0-0); BAND NEUTROPHILS #M 0.1 10^3/ul (0.0-0.6); BAND NEUTROPHILS % (M) 3 % (0-4); HYPOCHROMASIA 1+ (0-0); LYMPHOCYTES #M 0.8 10^3/ul (0.8-2.9); LYMPHOCYTES % (M) 17 % (15-51); MONOCYTE #M 0.1 10^3/ul (0.3-0.9); MONOCYTES % (M) 3 % (0-11); OVALOCYTES 1+ (0-0); PLATELET ESTIMATE SIG DECREASED; POIKILOCYTOSIS 1+ (0-0); POLYCHROMASIA 1+ (0-0); SEGMENTED NEUTROPHILS (M) % 76 % (39-77); SMUDGE%M 2 % (0-0)
[2017-04-19] MEDS: PANTOPRAZOLE 40 MG INJ IV (17:26)
[2017-04-19] MEDS: EPOETIN 10000 UNITS/1 ML INJ (ESRD) SC (17:27)
[2017-04-19] MEDS: INSULIN GLARGINE [LANtus] 3 ML PEN SC (21:16)
[2017-04-20] MEDS: ACCU-CHEK XX (02:01)
[2017-04-20] MEDS: PANTOPRAZOLE 40 MG INJ IV ×2 (05:44→17:15)
[2017-04-20 06:53] LABS: ANION GAP 16 (8-16); BLOOD UREA NITROGEN 48 mg/dl (7-20); CALCIUM 8.5 mg/dl (8.4-10.2); CARBON DIOXIDE 26 mmol/L (21-31); CHLORIDE 111 mmol/L (97-110); CREATININE 3.19 mg/dl (0.44-1.00); GLUCOSE 130 mg/dl (70-220); POTASSIUM 3.4 mmol/L (3.5-5.1); SODIUM 150 mmol/L (135-144)
[2017-04-20] MEDS: INSULIN ASPART [NOVOLOG] 3 ML PEN SC ×4 (07:35→20:20)
[2017-04-20] MEDS: ZINC SULFATE 220 MG CAP PO (08:37)
[2017-04-20] MEDS: ASCORBIC ACID 500 MG TAB PO (08:37)
[2017-04-20] MEDS: CALCIUM ACETATE 667 MG CAP PO ×3 (08:38→17:15)
[2017-04-20] MEDS: MEROPENEM 1 GM/50ML(PMX) 50 ML IVPB ×2 (08:46→20:43)
[2017-04-20] MEDS ORDERED: POTASSIUM CHLORIDE 20 MEQ in DEXTROSE 5% 100 ML IVPB (15:00)
[2017-04-20] MEDS: POTASSIUM CHLORIDE 50 ML IVPB ×2 (15:55→17:15)
[2017-04-20] MEDS: INSULIN GLARGINE [LANtus] 3 ML PEN SC (20:20)
[2017-04-21] MEDS: ACCU-CHEK XX (01:20)
[2017-04-21 05:12] LABS: WHITE BLOOD COUNT 7.9 10^3/ul (4.8-10.8)
[2017-04-21 05:12] LABS: ABNORMAL IP MESSAGE 1; HEMATOCRIT 25.5 % (37.0-47.0); HEMOGLOBIN 7.8 g/dl (12.0-16.0); MEAN CORPUSCULAR HEMOGLOBIN 28.2 pg (29.0-33.0); MEAN CORPUSCULAR HGB CONC 30.6 g/dl (32.0-37.0); MEAN CORPUSCULAR VOLUME 92.1 fl (82.0-101.0); MEAN PLATELET VOLUME 11.9 fl (7.4-10.4); NUCLEATED RED BLOOD CELLS% 0.3 /100WBC (0.0-0.0); PLATELET COUNT 79 10^3/UL (140-415); RED BLOOD COUNT 2.77 10^6/ul (4.20-5.40); RED CELL DISTRIBUTION WIDTH 17.3 % (11.5-14.5)
[2017-04-21 05:28] LABS: INR 1.14; PROTIME 14.8 Sec (11.9-14.9); PT RATIO 1.2
[2017-04-21 05:29] LABS: PARTIAL THROMBOPLASTIN TIME 30.2 Sec (25.0-35.0)
[2017-04-21 05:34] LABS: ADD MAN DIFF? YES; POSITIVE DIFF @See below
[2017-04-21 05:42] LABS: ANION GAP 13 (8-16); BLOOD UREA NITROGEN 56 mg/dl (7-20); CALCIUM 8.3 mg/dl (8.4-10.2); CARBON DIOXIDE 27 mmol/L (21-31); CHLORIDE 112 mmol/L (97-110); CREATININE 3.69 mg/dl (0.44-1.00); GLUCOSE 119 mg/dl (70-220); POTASSIUM 3.4 mmol/L (3.5-5.1); SODIUM 149 mmol/L (135-144)
[2017-04-21 05:45] LABS: VANCOMYCIN,RANDOM 15.6 ug/ml
[2017-04-21] MEDS: PANTOPRAZOLE 40 MG INJ IV ×2 (05:57→17:42)
[2017-04-21] MEDS: INSULIN ASPART [NOVOLOG] 3 ML PEN SC ×4 (07:35→20:12)
[2017-04-21] MEDS: CALCIUM ACETATE 667 MG CAP PO ×3 (07:48→17:26)
[2017-04-21 08:08] LABS: ANISOCYTOSIS 1+ (0-0); BAND NEUTROPHILS #M 1.2 10^3/ul (0.0-0.6); BAND NEUTROPHILS % (M) 16 % (0-4); BASOPHILS % (M) 1 % (0-2); EOSINOPHILS % (M) 6 % (0-7); HYPOCHROMASIA 1+ (0-0); LYMPHOCYTES #M 2.2 10^3/ul (0.8-2.9); LYMPHOCYTES % (M) 28 % (15-51); METAMYELOCYTES %M 1 % (0-0); MONOCYTE #M 0.3 10^3/ul (0.3-0.9); MONOCYTES % (M) 5 % (0-11); MYELOCYTES % (M) 1 % (0-0); PLATELET ESTIMATE DECREASED; POLYCHROMASIA 1+ (0-0); SEG NEUT #M 3.4 10^3/ul (1.7-7.5); SEGMENTED NEUTROPHILS (M) % 42 % (39-77); SMUDGE%M 3 % (0-0); TARGET CELLS 1+ (0-0)
[2017-04-21] MEDS: ZINC SULFATE 220 MG CAP PO (09:22)
[2017-04-21] MEDS: MEROPENEM 500MG/50 ML (PMX) 50 ML IVPB ×2 (09:22→20:16)
[2017-04-21] MEDS: ASCORBIC ACID 500 MG TAB PO (09:22)
[2017-04-21] MEDS: VANCOMYCIN 750 MG in DEXTROSE 5% 150 ML IVPB (18:26)
[2017-04-21] MEDS: INSULIN GLARGINE [LANtus] 3 ML PEN SC (20:11)
[2017-04-22] MEDS: ACCU-CHEK XX (02:00)
[2017-04-22] MEDS: PANTOPRAZOLE 40 MG INJ IV ×2 (05:27→17:40)
[2017-04-22] MEDS: INSULIN ASPART [NOVOLOG] 3 ML PEN SC ×4 (08:00→20:48)
[2017-04-22 08:15] LABS: ABNORMAL IP MESSAGE 1; HEMATOCRIT 26.6 % (37.0-47.0); MEAN CORPUSCULAR HEMOGLOBIN 27.7 pg (29.0-33.0); MEAN CORPUSCULAR HGB CONC 30.1 g/dl (32.0-37.0); MEAN PLATELET VOLUME 11.7 fl (7.4-10.4); PLATELET COUNT 80 10^3/UL (140-415); RED BLOOD COUNT 2.89 10^6/ul (4.20-5.40); RED CELL DISTRIBUTION WIDTH 17.2 % (11.5-14.5)
[2017-04-22 08:15] LABS: WHITE BLOOD COUNT 11.3 10^3/ul (4.8-10.8)
[2017-04-22 08:31] LABS: ADD MAN DIFF? YES; POSITIVE DIFF @See below
[2017-04-22 08:36] LABS: PHOSPHORUS 1.5 mg/dl (2.5-4.9)
[2017-04-22 08:36] LABS: MAGNESIUM 2.6 mg/dl (1.7-2.5)
[2017-04-22 08:42] LABS: ANION GAP 14 (8-16); BLOOD UREA NITROGEN 55 mg/dl (7-20); CALCIUM 8.3 mg/dl (8.4-10.2); CARBON DIOXIDE 27 mmol/L (21-31); CHLORIDE 107 mmol/L (97-110); CREATININE 3.67 mg/dl (0.44-1.00); GLUCOSE 100 mg/dl (70-220); POTASSIUM 3.5 mmol/L (3.5-5.1); SODIUM 144 mmol/L (135-144)
[2017-04-22] MEDS: ASCORBIC ACID 500 MG TAB PO (08:47)
[2017-04-22] MEDS: ZINC SULFATE 220 MG CAP PO (08:47)
[2017-04-22] MEDS: CALCIUM ACETATE 667 MG CAP PO ×3 (08:48→17:40)
[2017-04-22] MEDS: MEROPENEM 500MG/50 ML (PMX) 50 ML IVPB ×2 (08:53→20:47)
[2017-04-22 09:42] LABS: ANISOCYTOSIS 1+ (0-0); BAND NEUTROPHILS #M 0.2 10^3/ul (0.0-0.6); BAND NEUTROPHILS % (M) 2 % (0-4); EOSINOPHILS % (M) 6 % (0-7); HYPOCHROMASIA 1+ (0-0); LYMPHOCYTES #M 1.4 10^3/ul (0.8-2.9); LYMPHOCYTES % (M) 13 % (15-51); MONOCYTE #M 0.7 10^3/ul (0.3-0.9); MONOCYTES % (M) 7 % (0-11); PLATELET ESTIMATE DECREASED; PROMYELOCYTES #M 0.1 10^3/ul (0-0); PROMYELOCYTES % (M) 1 % (0-0); SEGMENTED NEUTROPHILS (M) % 71 % (39-77); SMUDGE%M 5 % (0-0)
[2017-04-22] MEDS ORDERED: LIDOCAINE 1% (MPF) 30 ML INJ (11:15)
[2017-04-22] MEDS ORDERED: IOHEXOL 300MG/ML 30 ML BTL (11:16)
[2017-04-22] MEDS ORDERED: HEPARIN 1000 UNITS/ML 10 ML INJ (11:16)
[2017-04-22] MEDS ORDERED: morphine (1 MG/ML) 10ML SYRINGE IV (11:30)
[2017-04-22] MEDS ORDERED: FENTAnyl 50 MCG/ML VIAL IV (11:30)
[2017-04-22] MEDS ORDERED: PROPOFOL 20 ML (12:33)
[2017-04-22] MEDS: IOHEXOL 300MG/ML 150 ML BTL INJ (12:48)
[2017-04-22] MEDS: HEPARIN 10,000 UNITS/ML 1 ML INJ IRR (12:48)
[2017-04-22] MEDS: LIDOCAINE 1% (MPF) 30 ML INJ INJ (12:48)
[2017-04-22] MEDS: EPOETIN 10000 UNITS/1 ML INJ (ESRD) SC (17:41)
[2017-04-22] MEDS: INSULIN GLARGINE [LANtus] 3 ML PEN SC (20:48)
[2017-04-22] MEDS: BALSAM PERU/CASTOR OIL 60 GM TUBE TOP (20:48)
[2017-04-23] MEDS: ACCU-CHEK XX (02:00)
[2017-04-23] MEDS: PANTOPRAZOLE 40 MG INJ IV ×2 (05:13→18:05)
[2017-04-23] MEDS: INSULIN ASPART [NOVOLOG] 3 ML PEN SC ×4 (07:56→20:55)
[2017-04-23] MEDS: CALCIUM ACETATE 667 MG CAP PO ×3 (07:57→17:13)
[2017-04-23] MEDS: ASCORBIC ACID 500 MG TAB PO (08:10)
[2017-04-23] MEDS: ZINC SULFATE 220 MG CAP PO (08:10)
[2017-04-23] MEDS: MEROPENEM 500MG/50 ML (PMX) 50 ML IVPB ×2 (08:10→20:47)
[2017-04-23] MEDS: AMLODIPINE 10 MG TAB PO (17:11)
[2017-04-23] MEDS: INSULIN GLARGINE [LANtus] 3 ML PEN SC (20:55)
[2017-04-24] MEDS: ACCU-CHEK XX (01:05)
[2017-04-24] MEDS: PANTOPRAZOLE 40 MG INJ IV ×2 (05:23→17:47)
[2017-04-24] MEDS: INSULIN ASPART [NOVOLOG] 3 ML PEN SC ×4 (08:00→21:25)
[2017-04-24 09:03] LABS: ADD MAN DIFF? NO
[2017-04-24 09:05] LABS: WHITE BLOOD COUNT 12.2 10^3/ul (4.8-10.8)
[2017-04-24 09:05] LABS: BASOPHILS % 0.2 % (0.0-2.0); EOSINOPHILS # 0.3 10^3/ul (0.0-0.5); HEMATOCRIT 29.4 % (37.0-47.0); HEMOGLOBIN 8.9 g/dl (12.0-16.0); LYMPHOCYTES # 2.1 10^3/ul (0.8-2.9); LYMPHOCYTES % 17.2 % (15.0-51.0); MEAN CORPUSCULAR HEMOGLOBIN 27.6 pg (29.0-33.0); MEAN CORPUSCULAR HGB CONC 30.3 g/dl (32.0-37.0); MEAN PLATELET VOLUME 12.3 fl (7.4-10.4); MONOCYTE # 0.8 10^3/ul (0.3-0.9); MONOCYTES % 6.4 % (0.0-11.0); NEUTROPHIL # 8.6 10^3/ul (1.6-7.5); NEUTROPHILS % 70.2 % (39.0-77.0); PLATELET COUNT 103 10^3/UL (140-415); RED BLOOD COUNT 3.23 10^6/ul (4.20-5.40)
[2017-04-24] MEDS: AMLODIPINE 10 MG TAB PO (09:16)
[2017-04-24] MEDS: ASCORBIC ACID 500 MG TAB PO (09:16)
[2017-04-24] MEDS: ZINC SULFATE 220 MG CAP PO (09:16)
[2017-04-24] MEDS: CALCIUM ACETATE 667 MG CAP PO ×3 (09:18→17:48)
[2017-04-24] MEDS: BISOPROLOL 5 MG TAB PO (09:18)
[2017-04-24] MEDS: MEROPENEM 500MG/50 ML (PMX) 50 ML IVPB ×2 (09:19→21:19)
[2017-04-24] MEDS: LOSARTAN 50 MG TAB PO ×2 (09:19→21:20)
[2017-04-24] MEDS: BALSAM PERU/CASTOR OIL 60 GM TUBE TOP (09:20)
[2017-04-24 09:26] LABS: ANION GAP 16 (8-16); BLOOD UREA NITROGEN 46 mg/dl (7-20); CALCIUM 8.2 mg/dl (8.4-10.2); CARBON DIOXIDE 25 mmol/L (21-31); CHLORIDE 108 mmol/L (97-110); GLUCOSE 130 mg/dl (70-220); POTASSIUM 3.5 mmol/L (3.5-5.1); SODIUM 145 mmol/L (135-144)
[2017-04-24 09:30] LABS: MAGNESIUM 2.3 mg/dl (1.7-2.5)
[2017-04-24] MEDS ORDERED: VANCOMYCIN IV PER PHARMACY XX (11:30)
[2017-04-24] MEDS: EPOETIN 10000 UNITS/1 ML INJ (ESRD) SC (17:51)
[2017-04-24] MEDS ORDERED: hydrALAzine 20 MG INJ IV (21:00)
[2017-04-24] MEDS: INSULIN GLARGINE [LANtus] 3 ML PEN SC (21:26)
[2017-04-25] MEDS: ACCU-CHEK XX (02:00)
[2017-04-25] MEDS: PANTOPRAZOLE 40 MG INJ IV ×2 (07:00→17:18)
[2017-04-25] MEDS: CALCIUM ACETATE 667 MG CAP PO ×3 (08:00→17:18)
[2017-04-25] MEDS: INSULIN ASPART [NOVOLOG] 3 ML PEN SC ×4 (08:00→21:00)
[2017-04-25 08:23] LABS: ADD MAN DIFF? NO
[2017-04-25 08:28] LABS: WHITE BLOOD COUNT 12.1 10^3/ul (4.8-10.8)
[2017-04-25 08:28] LABS: BASOPHILS % 0.2 % (0.0-2.0); EOSINOPHILS # 0.4 10^3/ul (0.0-0.5); HEMATOCRIT 27.6 % (37.0-47.0); HEMOGLOBIN 8.5 g/dl (12.0-16.0); LYMPHOCYTES # 2.2 10^3/ul (0.8-2.9); LYMPHOCYTES % 18.4 % (15.0-51.0); MEAN CORPUSCULAR HEMOGLOBIN 27.8 pg (29.0-33.0); MEAN CORPUSCULAR HGB CONC 30.8 g/dl (32.0-37.0); MEAN CORPUSCULAR VOLUME 90.2 fl (82.0-101.0); MONOCYTES % 8.2 % (0.0-11.0); NEUTROPHIL # 8.2 10^3/ul (1.6-7.5); NEUTROPHILS % 67.7 % (39.0-77.0); PLATELET COUNT 124 10^3/UL (140-415); RED BLOOD COUNT 3.06 10^6/ul (4.20-5.40); RED CELL DISTRIBUTION WIDTH 17.3 % (11.5-14.5)
[2017-04-25 09:01] LABS: PHOSPHORUS 3.2 mg/dl (2.5-4.9)
[2017-04-25 09:01] LABS: MAGNESIUM 2.2 mg/dl (1.7-2.5)
[2017-04-25 09:02] LABS: ANION GAP 15 (8-16); BLOOD UREA NITROGEN 51 mg/dl (7-20); CARBON DIOXIDE 26 mmol/L (21-31); CHLORIDE 107 mmol/L (97-110); CREATININE 3.53 mg/dl (0.44-1.00); GLUCOSE 97 mg/dl (70-220); POTASSIUM 3.5 mmol/L (3.5-5.1); SODIUM 144 mmol/L (135-144)
[2017-04-25 09:04] LABS: VANCOMYCIN,RANDOM 12.9 ug/ml
[2017-04-25] MEDS: BISOPROLOL 5 MG TAB PO (09:15)
[2017-04-25] MEDS: ZINC SULFATE 220 MG CAP PO (09:15)
[2017-04-25] MEDS: LOSARTAN 50 MG TAB PO ×2 (09:15→21:42)
[2017-04-25] MEDS: AMLODIPINE 10 MG TAB PO (09:15)
[2017-04-25] MEDS: ASCORBIC ACID 500 MG TAB PO (09:15)
[2017-04-25] MEDS: MEROPENEM 500MG/50 ML (PMX) 50 ML IVPB ×2 (09:17→21:40)
[2017-04-25] MEDS: BALSAM PERU/CASTOR OIL 60 GM TUBE TOP (09:17)
[2017-04-25] MEDS: VANCOMYCIN 1 GM 250 ML IVPB (17:18)
[2017-04-25] MEDS ORDERED: VANCOMYCIN 750 MG in DEXTROSE 5% 150 ML IVPB (18:00)
[2017-04-25] MEDS: LORAZEPAM 2 MG INJ IV (21:42)
[2017-04-25] MEDS: INSULIN GLARGINE [LANtus] 3 ML PEN SC (21:44)
[2017-04-26] MEDS: ACCU-CHEK XX (02:00)
[2017-04-26] MEDS: PANTOPRAZOLE 40 MG INJ IV ×2 (06:13→17:36)
[2017-04-26] MEDS: INSULIN ASPART [NOVOLOG] 3 ML PEN SC ×4 (08:00→23:28)
[2017-04-26] MEDS: BALSAM PERU/CASTOR OIL 60 GM TUBE TOP (09:00)
[2017-04-26] MEDS: CALCIUM ACETATE 667 MG CAP PO ×3 (09:56→17:34)
[2017-04-26] MEDS: AMLODIPINE 10 MG TAB PO (09:57)
[2017-04-26] MEDS: LOSARTAN 50 MG TAB PO ×2 (09:57→23:01)
[2017-04-26] MEDS: ASCORBIC ACID 500 MG TAB PO (09:57)
[2017-04-26] MEDS: ZINC SULFATE 220 MG CAP PO (09:58)
[2017-04-26] MEDS: BISOPROLOL 5 MG TAB PO (09:58)
[2017-04-26] MEDS: MEROPENEM 500MG/50 ML (PMX) 50 ML IVPB ×2 (10:04→23:01)
[2017-04-26 10:49] LABS: ALANINE AMINOTRANSFERASE 61 IU/L (13-69); ALBUMIN 2.5 g/dl (3.3-4.9); ALBUMIN/GLOBULIN RATIO 0.69; ALKALINE PHOSPHATASE 87 IU/L (42-121); ANION GAP 13 (8-16); ASPARTATE AMINO TRANSFERASE 34 IU/L (15-46); BILIRUBIN,INDIRECT 0.1 mg/dl (0-1.1); BILIRUBIN,TOTAL 0.1 mg/dl (0.2-1.3); BLOOD UREA NITROGEN 36 mg/dl (7-20); CALCIUM 7.7 mg/dl (8.4-10.2); CARBON DIOXIDE 26 mmol/L (21-31); CHLORIDE 101 mmol/L (97-110); CREATININE 3.12 mg/dl (0.44-1.00); GLUCOSE 104 mg/dl (70-220); POTASSIUM 3.2 mmol/L (3.5-5.1); SODIUM 137 mmol/L (135-144); TOTAL PROTEIN 6.1 g/dl (6.1-8.1)
[2017-04-26 13:47] LABS: INR 1.13; PROTIME 14.7 Sec (11.9-14.9); PT RATIO 1.1
[2017-04-26 13:48] LABS: PARTIAL THROMBOPLASTIN TIME 32.1 Sec (25.0-35.0)
[2017-04-26] MEDS: HYDROCODONE/APAP (5/325) TAB PO (15:16)
[2017-04-26] MEDS: EPOETIN 10000 UNITS/1 ML INJ (ESRD) SC (17:37)
[2017-04-26] MEDS: POTASSIUM CHLORIDE (SR) 20 MEQ TAB PO (22:59)
[2017-04-26] MEDS: INSULIN GLARGINE [LANtus] 3 ML PEN SC (23:27)
[2017-04-27] MEDS: ACCU-CHEK XX (02:00)
[2017-04-27] MEDS: PANTOPRAZOLE 40 MG INJ IV ×2 (06:00→17:31)
[2017-04-27] MEDS: INSULIN ASPART [NOVOLOG] 3 ML PEN SC ×4 (08:00→21:59)
[2017-04-27] MEDS: CALCIUM ACETATE 667 MG CAP PO ×3 (09:02→17:31)
[2017-04-27] MEDS: ASCORBIC ACID 500 MG TAB PO (09:03)
[2017-04-27] MEDS: AMLODIPINE 10 MG TAB PO (09:03)
[2017-04-27] MEDS: LOSARTAN 50 MG TAB PO ×2 (09:03→21:49)
[2017-04-27] MEDS: BISOPROLOL 5 MG TAB PO (09:04)
[2017-04-27] MEDS: ZINC SULFATE 220 MG CAP PO (09:04)
[2017-04-27] MEDS: BALSAM PERU/CASTOR OIL 60 GM TUBE TOP (09:04)
[2017-04-27] MEDS: MEROPENEM 500MG/50 ML (PMX) 50 ML IVPB ×2 (09:15→21:40)
[2017-04-27] MEDS: AL HYDROX/MG HYDROX/SIMETH 30 ML CUP PO (09:18)
[2017-04-27] MEDS: HYDROCODONE/APAP (5/325) TAB PO (09:18)
[2017-04-27] MEDS: INSULIN GLARGINE [LANtus] 3 ML PEN SC (21:59)
[2017-04-28] MEDS: ACCU-CHEK XX (02:00)
[2017-04-28] MEDS: PANTOPRAZOLE 40 MG INJ IV ×2 (06:34→17:38)
[2017-04-28] MEDS: MEROPENEM 500MG/50 ML (PMX) 50 ML IVPB ×3 (09:00→20:19)
[2017-04-28] MEDS: BALSAM PERU/CASTOR OIL 60 GM TUBE TOP (09:00)
[2017-04-28] MEDS: LOSARTAN 50 MG TAB PO ×2 (09:00→20:18)
[2017-04-28] MEDS: CALCIUM ACETATE 667 MG CAP PO ×3 (09:13→17:38)
[2017-04-28] MEDS: AMLODIPINE 10 MG TAB PO (09:15)
[2017-04-28] MEDS: ASCORBIC ACID 500 MG TAB PO (09:15)
[2017-04-28] MEDS: ZINC SULFATE 220 MG CAP PO (09:15)
[2017-04-28] MEDS: BISOPROLOL 5 MG TAB PO (09:16)
[2017-04-28] MEDS: INSULIN ASPART [NOVOLOG] 3 ML PEN SC ×4 (09:20→20:33)
[2017-04-28] MEDS: ACETAMINOPHEN 325 MG TAB PO ×2 (09:23→20:17)
[2017-04-28 10:04] LABS: ABNORMAL IP MESSAGE 1; HEMATOCRIT 26.9 % (37.0-47.0); HEMOGLOBIN 8.2 g/dl (12.0-16.0); MEAN CORPUSCULAR HEMOGLOBIN 27.3 pg (29.0-33.0); MEAN CORPUSCULAR HGB CONC 30.5 g/dl (32.0-37.0); MEAN CORPUSCULAR VOLUME 89.7 fl (82.0-101.0); MEAN PLATELET VOLUME 11.5 fl (7.4-10.4); NUCLEATED RED BLOOD CELLS% 0.2 /100WBC (0.0-0.0); PLATELET COUNT 164 10^3/UL (140-415); RED CELL DISTRIBUTION WIDTH 17.2 % (11.5-14.5)
[2017-04-28 10:04] LABS: WHITE BLOOD COUNT 14.2 10^3/ul (4.8-10.8)
[2017-04-28 10:13] LABS: POSITIVE DIFF @See below
[2017-04-28 10:14] LABS: ADD MAN DIFF? YES
[2017-04-28 10:36] LABS: ANION GAP 16 (8-16); BLOOD UREA NITROGEN 48 mg/dl (7-20); CALCIUM 7.8 mg/dl (8.4-10.2); CARBON DIOXIDE 24 mmol/L (21-31); CHLORIDE 105 mmol/L (97-110); CREATININE 3.74 mg/dl (0.44-1.00); GLUCOSE 133 mg/dl (70-220); POTASSIUM 3.3 mmol/L (3.5-5.1); SODIUM 142 mmol/L (135-144)
[2017-04-28 10:51] LABS: ANISOCYTOSIS 1+ (0-0); BAND NEUTROPHILS #M 3.1 10^3/ul (0.0-0.6); BAND NEUTROPHILS % (M) 22 % (0-4); EOSINOPHILS % (M) 1 % (0-7); HYPOCHROMASIA 1+ (0-0); LYMPHOCYTES #M 1.7 10^3/ul (0.8-2.9); LYMPHOCYTES % (M) 12 % (15-51); METAMYELOCYTES #M 0.1 10^3/ul (0.0-0.0); METAMYELOCYTES %M 1 % (0-0); MICROCYTOSIS 1+ (0-0); MONOCYTE #M 1.8 10^3/ul (0.3-0.9); MONOCYTES % (M) 13 % (0-11); PLATELET ESTIMATE NORMAL; SEG NEUT #M 7.7 10^3/ul (1.7-7.5); SEGMENTED NEUTROPHILS (M) % 51 % (39-77); SMUDGE%M 4 % (0-0)
[2017-04-28 19:03] LABS: ADD UMIC YES; UR ASCORBIC ACID NEGATIVE (NEGATIVE); UR BILIRUBIN (Dip) NEGATIVE (NEGATIVE); UR BLOOD (Dip) NEGATIVE (NEGATIVE); UR CLARITY SLIGHTLY CLOUDY (CLEAR); UR COLOR YELLOW (YELLOW); UR GLUCOSE (Dip) 2+ mg/dL (NEGATIVE); UR KETONES (Dip) NEGATIVE (NEGATIVE); UR LEUKOCYTE ESTERASE (Dip) NEGATIVE Leu/ul (NEGATIVE); UR NITRITE (Dip) NEGATIVE (NEGATIVE); UR RBC 0 /HPF (0-5); UR SPECIFIC GRAVITY (Dip) 1.015 (1.003-1.030); UR SQUAMOUS EPITHELIAL CELL FEW /HPF (FEW); UR TOTAL PROTEIN (Dip) 2+ mg/dl (NEGATIVE); UR UROBILINOGEN (Dip) NEGATIVE (NEGATIVE); UR WBC 13 /HPF (0-5)
[2017-04-28] MEDS: INSULIN GLARGINE [LANtus] 3 ML PEN SC (20:40)
[2017-04-29] MEDS: ACCU-CHEK XX (01:22)
[2017-04-29] MEDS: PANTOPRAZOLE 40 MG INJ IV ×2 (05:41→17:04)
[2017-04-29] MEDS: INSULIN ASPART [NOVOLOG] 3 ML PEN SC ×4 (08:00→21:00)
[2017-04-29] MEDS: CALCIUM ACETATE 667 MG CAP PO ×3 (08:00→17:12)
[2017-04-29 08:06] LABS: ADD MAN DIFF? NO
[2017-04-29 08:20] LABS: ABNORMAL IP MESSAGE 1; BASOPHIL # 0.1 10^3/ul (0.0-0.1); BASOPHILS % 0.4 % (0.0-2.0); EOSINOPHILS # 0.2 10^3/ul (0.0-0.5); EOSINOPHILS % 1.3 % (0.0-7.0); HEMATOCRIT 25.1 % (37.0-47.0); HEMOGLOBIN 7.7 g/dl (12.0-16.0); LYMPHOCYTES # 3.1 10^3/ul (0.8-2.9); LYMPHOCYTES % 21.3 % (15.0-51.0); MEAN CORPUSCULAR HEMOGLOBIN 27.4 pg (29.0-33.0); MEAN CORPUSCULAR HGB CONC 30.7 g/dl (32.0-37.0); MEAN CORPUSCULAR VOLUME 89.3 fl (82.0-101.0); MEAN PLATELET VOLUME 11.9 fl (7.4-10.4); NEUTROPHIL # 8.7 10^3/ul (1.6-7.5); NEUTROPHILS % 60.8 % (39.0-77.0); NUCLEATED RED BLOOD CELLS% 0.1 /100WBC (0.0-0.0); PLATELET COUNT 207 10^3/UL (140-415); RED BLOOD COUNT 2.81 10^6/ul (4.20-5.40); RED CELL DISTRIBUTION WIDTH 16.9 % (11.5-14.5)
[2017-04-29 08:20] LABS: WHITE BLOOD COUNT 14.3 10^3/ul (4.8-10.8)
[2017-04-29 08:38] LABS: MAGNESIUM 2.1 mg/dl (1.7-2.5)
[2017-04-29 08:38] LABS: PHOSPHORUS 4.3 mg/dl (2.5-4.9)
[2017-04-29 08:44] LABS: ANION GAP 15 (8-16); BLOOD UREA NITROGEN 62 mg/dl (7-20); CALCIUM 7.7 mg/dl (8.4-10.2); CARBON DIOXIDE 22 mmol/L (21-31); CHLORIDE 108 mmol/L (97-110); CREATININE 4.41 mg/dl (0.44-1.00); POTASSIUM 3.6 mmol/L (3.5-5.1); SODIUM 141 mmol/L (135-144)
[2017-04-29] MEDS: ASCORBIC ACID 500 MG TAB PO (09:00)
[2017-04-29] MEDS: LOSARTAN 50 MG TAB PO ×2 (09:00→20:53)
[2017-04-29] MEDS: AMLODIPINE 10 MG TAB PO (09:00)
[2017-04-29] MEDS: BISOPROLOL 5 MG TAB PO (09:00)
[2017-04-29 09:06] LABS: GLUCOSE 49 mg/dl (70-220)
[2017-04-29] MEDS: ZINC SULFATE 220 MG CAP PO (09:10)
[2017-04-29] MEDS: BALSAM PERU/CASTOR OIL 60 GM TUBE TOP (09:10)
[2017-04-29] MEDS: COLLAGENASE 30 GM TUBE TOP (09:10)
[2017-04-29] MEDS: MEROPENEM 500MG/50 ML (PMX) 50 ML IVPB ×2 (09:18→20:47)
[2017-04-29] MEDS: HYDROCODONE/APAP (5/325) TAB PO (15:41)
[2017-04-29] MEDS: EPOETIN 10000 UNITS/1 ML INJ (ESRD) SC (16:26)
[2017-04-29] MEDS: VANCOMYCIN 1 GM 250 ML IVPB (17:04)
[2017-04-29] MEDS: INSULIN GLARGINE [LANtus] 3 ML PEN SC (21:19)
[2017-04-30] MEDS: ACCU-CHEK XX (02:44)
[2017-04-30] MEDS: PANTOPRAZOLE 40 MG INJ IV ×2 (06:14→18:29)
[2017-04-30] MEDS: INSULIN ASPART [NOVOLOG] 3 ML PEN SC ×4 (08:00→20:50)
[2017-04-30 08:53] LABS: ABNORMAL IP MESSAGE 1; HEMATOCRIT 24.5 % (37.0-47.0); HEMOGLOBIN 7.5 g/dl (12.0-16.0); MEAN CORPUSCULAR HEMOGLOBIN 27.5 pg (29.0-33.0); MEAN CORPUSCULAR HGB CONC 30.6 g/dl (32.0-37.0); MEAN CORPUSCULAR VOLUME 89.7 fl (82.0-101.0); MEAN PLATELET VOLUME 11.2 fl (7.4-10.4); NUCLEATED RED BLOOD CELLS% 0.2 /100WBC (0.0-0.0); PLATELET COUNT 224 10^3/UL (140-415); RED BLOOD COUNT 2.73 10^6/ul (4.20-5.40); RED CELL DISTRIBUTION WIDTH 17.1 % (11.5-14.5)
[2017-04-30 08:53] LABS: WHITE BLOOD COUNT 16.9 10^3/ul (4.8-10.8)
[2017-04-30] MEDS: MEROPENEM 500MG/50 ML (PMX) 50 ML IVPB ×2 (08:54→20:43)
[2017-04-30] MEDS: CALCIUM ACETATE 667 MG CAP PO ×3 (08:54→18:05)
[2017-04-30] MEDS: BALSAM PERU/CASTOR OIL 60 GM TUBE TOP (08:54)
[2017-04-30] MEDS: COLLAGENASE 30 GM TUBE TOP (08:54)
[2017-04-30] MEDS: ASCORBIC ACID 500 MG TAB PO (08:54)
[2017-04-30] MEDS: ZINC SULFATE 220 MG CAP PO (08:54)
[2017-04-30 08:57] LABS: ADD MAN DIFF? YES; POSITIVE DIFF @See below
[2017-04-30] MEDS: LOSARTAN 50 MG TAB PO ×2 (09:00→20:50)
[2017-04-30] MEDS: AMLODIPINE 10 MG TAB PO (09:00)
[2017-04-30] MEDS: BISOPROLOL 5 MG TAB PO (09:00)
[2017-04-30 09:24] LABS: ALANINE AMINOTRANSFERASE 30 IU/L (13-69); ALBUMIN/GLOBULIN RATIO 0.62; ALKALINE PHOSPHATASE 97 IU/L (42-121); ANION GAP 15 (8-16); ASPARTATE AMINO TRANSFERASE 36 IU/L (15-46); BLOOD UREA NITROGEN 74 mg/dl (7-20); CALCIUM 7.3 mg/dl (8.4-10.2); CARBON DIOXIDE 21 mmol/L (21-31); CHLORIDE 108 mmol/L (97-110); CREATININE 5.31 mg/dl (0.44-1.00); GLUCOSE 63 mg/dl (70-220); POTASSIUM 3.6 mmol/L (3.5-5.1); SODIUM 140 mmol/L (135-144); TOTAL PROTEIN 5.2 g/dl (6.1-8.1)
[2017-04-30 09:31] LABS: ANISOCYTOSIS 1+ (0-0); BAND NEUTROPHILS #M 4.3 10^3/ul (0.0-0.6); BAND NEUTROPHILS % (M) 26 % (0-4); EOSINOPHILS % (M) 4 % (0-7); HYPOCHROMASIA 1+ (0-0); LYMPHOCYTES #M 2.3 10^3/ul (0.8-2.9); LYMPHOCYTES % (M) 14 % (15-51); MONOCYTE #M 0.5 10^3/ul (0.3-0.9); MONOCYTES % (M) 3 % (0-11); PLATELET ESTIMATE NORMAL; POIKILOCYTOSIS 2+ (0-0); REACTIVE LYMPHOCYTES #M 0.3 10^3/ul (0.0-0.0); REACTIVE LYMPHOCYTES% (M) 2 % (0-0); SEG NEUT #M 9.3 10^3/ul (1.7-7.5); SEGMENTED NEUTROPHILS (M) % 51 % (39-77); SMUDGE%M 4 % (0-0); TARGET CELLS 1+ (0-0)
[2017-04-30] MEDS: ACETAMINOPHEN 325 MG TAB PO (13:03)
[2017-04-30] MEDS ORDERED: BARIUM SULF 2% 450 ML BTL (BERRY SMOOTHIE) PO (13:30)
[2017-04-30] MEDS: DEXTROSE 5%-0.45% NACL 500 ML IV (14:00)
[2017-04-30] MEDS: ALBUMIN HUMAN 25% 100 ML IV (15:46)
[2017-04-30] MEDS: IOHEXOL 300MG/ML 30 ML BTL (17:57)
[2017-04-30] MEDS: INSULIN GLARGINE [LANtus] 3 ML PEN SC (20:50)
[2017-05-01] MEDS: ACCU-CHEK XX (02:00)
[2017-05-01] MEDS: DEXTROSE 5%-0.45% NACL 500 ML IV ×3 (02:30→17:26)
[2017-05-01] MEDS: PANTOPRAZOLE 40 MG INJ IV ×2 (05:26→17:16)
[2017-05-01] MEDS: INSULIN ASPART [NOVOLOG] 3 ML PEN SC ×4 (08:00→21:00)
[2017-05-01] MEDS: CALCIUM ACETATE 667 MG CAP PO ×3 (08:00→17:16)
[2017-05-01] MEDS: MEROPENEM 500MG/50 ML (PMX) 50 ML IVPB ×2 (08:43→21:24)
[2017-05-01] MEDS: ZINC SULFATE 220 MG CAP PO (08:44)
[2017-05-01] MEDS: AMLODIPINE 10 MG TAB PO (08:44)
[2017-05-01] MEDS: LOSARTAN 50 MG TAB PO ×2 (08:44→21:13)
[2017-05-01] MEDS: BISOPROLOL 5 MG TAB PO (08:44)
[2017-05-01] MEDS: ASCORBIC ACID 500 MG TAB PO (08:44)
[2017-05-01] MEDS: COLLAGENASE 30 GM TUBE TOP (08:45)
[2017-05-01] MEDS: BALSAM PERU/CASTOR OIL 60 GM TUBE TOP (08:45)
[2017-05-01 09:11] LABS: ADD MAN DIFF? NO
[2017-05-01 09:12] LABS: WHITE BLOOD COUNT 21.1 10^3/ul (4.8-10.8)
[2017-05-01 09:13] LABS: ABNORMAL IP MESSAGE 1; BASOPHIL # 0.1 10^3/ul (0.0-0.1); BASOPHILS % 0.3 % (0.0-2.0); EOSINOPHILS # 0.3 10^3/ul (0.0-0.5); EOSINOPHILS % 1.5 % (0.0-7.0); HEMATOCRIT 22.4 % (37.0-47.0); LYMPHOCYTES # 2.7 10^3/ul (0.8-2.9); LYMPHOCYTES % 12.7 % (15.0-51.0); MEAN CORPUSCULAR HEMOGLOBIN 27.6 pg (29.0-33.0); MEAN CORPUSCULAR HGB CONC 31.3 g/dl (32.0-37.0); MEAN CORPUSCULAR VOLUME 88.2 fl (82.0-101.0); MEAN PLATELET VOLUME 11.7 fl (7.4-10.4); MONOCYTE # 2.1 10^3/ul (0.3-0.9); NEUTROPHILS % 66.5 % (39.0-77.0); NUCLEATED RED BLOOD CELLS% 0.1 /100WBC (0.0-0.0); PLATELET COUNT 231 10^3/UL (140-415); RED BLOOD COUNT 2.54 10^6/ul (4.20-5.40); RED CELL DISTRIBUTION WIDTH 17.2 % (11.5-14.5)
[2017-05-01 09:14] LABS: POSITIVE DIFF @See below
[2017-05-01 09:54] LABS: ALANINE AMINOTRANSFERASE 31 IU/L (13-69); ALBUMIN 2.2 g/dl (3.3-4.9); ALBUMIN/GLOBULIN RATIO 0.73; ALKALINE PHOSPHATASE 91 IU/L (42-121); ANION GAP 11 (8-16); ASPARTATE AMINO TRANSFERASE 27 IU/L (15-46); BLOOD UREA NITROGEN 38 mg/dl (7-20); CALCIUM 7.9 mg/dl (8.4-10.2); CARBON DIOXIDE 27 mmol/L (21-31); CHLORIDE 108 mmol/L (97-110); CREATININE 3.48 mg/dl (0.44-1.00); GLUCOSE 88 mg/dl (70-220); SODIUM 143 mmol/L (135-144); TOTAL PROTEIN 5.2 g/dl (6.1-8.1)
[2017-05-01 09:55] LABS: MAGNESIUM 2.1 mg/dl (1.7-2.5)
[2017-05-01 09:55] LABS: PHOSPHORUS 3.9 mg/dl (2.5-4.9)
[2017-05-01 10:10] LABS: POTASSIUM 2.8 mmol/L (3.5-5.1)
[2017-05-01] MEDS ORDERED: POTASSIUM CHLORIDE 30 MEQ in DEXTROSE 5% 250 ML IVPB (11:30)
[2017-05-01] MEDS: BISACODYL (EC) 5 MG TAB PO ×2 (12:32→21:13)
[2017-05-01] MEDS: POTASSIUM CHLORIDE 50 ML IVPB ×3 (12:32→14:13)
[2017-05-01 14:49] LABS: LACTIC ACID 1.3 mmol/L (0.5-2.0)
[2017-05-01] MEDS: PEG/ELECTROLYTES 4L BTL PO ×2 (15:55→21:16)
[2017-05-01] MEDS: metroNIDAZOLE 500 MG TAB NGT ×2 (15:55→21:24)
[2017-05-01] MEDS: EPOETIN 10000 UNITS/1 ML INJ (ESRD) SC (17:18)
[2017-05-01 18:03] LABS: AHG CROSSMATCH 1 2
[2017-05-01] MEDS: INSULIN GLARGINE [LANtus] 3 ML PEN SC (21:17)
[2017-05-02] MEDS: ACCU-CHEK XX (01:42)
[2017-05-02] MEDS: POTASSIUM CHLORIDE 50 ML IVPB ×3 (02:00→21:40)
[2017-05-02] MEDS: metroNIDAZOLE 500 MG TAB NGT ×3 (04:30→21:40)
[2017-05-02] MEDS: PANTOPRAZOLE 40 MG INJ IV ×2 (05:20→17:16)
[2017-05-02] MEDS: CALCIUM ACETATE 667 MG CAP PO ×3 (08:00→17:16)
[2017-05-02] MEDS: INSULIN ASPART [NOVOLOG] 3 ML PEN SC ×4 (08:00→21:00)
[2017-05-02] MEDS: ASCORBIC ACID 500 MG TAB PO (08:13)
[2017-05-02] MEDS: ZINC SULFATE 220 MG CAP PO (08:13)
[2017-05-02] MEDS: MEROPENEM 500MG/50 ML (PMX) 50 ML IVPB ×2 (08:22→21:20)
[2017-05-02] MEDS: AMLODIPINE 10 MG TAB PO (08:23)
[2017-05-02] MEDS: BISOPROLOL 5 MG TAB PO (08:23)
[2017-05-02] MEDS: BALSAM PERU/CASTOR OIL 60 GM TUBE TOP (08:24)
[2017-05-02] MEDS: COLLAGENASE 30 GM TUBE TOP (08:24)
[2017-05-02] MEDS: LOSARTAN 50 MG TAB PO ×2 (08:37→21:20)
[2017-05-02 09:06] LABS: WHITE BLOOD COUNT 17.4 10^3/ul (4.8-10.8)
[2017-05-02 09:06] LABS: ABNORMAL IP MESSAGE 1; HEMATOCRIT 27.9 % (37.0-47.0); MEAN CORPUSCULAR HEMOGLOBIN 28.4 pg (29.0-33.0); MEAN CORPUSCULAR HGB CONC 32.3 g/dl (32.0-37.0); MEAN PLATELET VOLUME 11.5 fl (7.4-10.4); NUCLEATED RED BLOOD CELLS% 0.2 /100WBC (0.0-0.0); PLATELET COUNT 238 10^3/UL (140-415); RED BLOOD COUNT 3.17 10^6/ul (4.20-5.40); RED CELL DISTRIBUTION WIDTH 16.7 % (11.5-14.5)
[2017-05-02 09:11] LABS: ADD MAN DIFF? YES; POSITIVE DIFF @See below
[2017-05-02 09:45] LABS: ALANINE AMINOTRANSFERASE 28 IU/L (13-69); ALBUMIN 2.1 g/dl (3.3-4.9); ALBUMIN/GLOBULIN RATIO 0.67; ALKALINE PHOSPHATASE 90 IU/L (42-121); ANION GAP 12 (8-16); ASPARTATE AMINO TRANSFERASE 21 IU/L (15-46); BLOOD UREA NITROGEN 42 mg/dl (7-20); CALCIUM 7.6 mg/dl (8.4-10.2); CARBON DIOXIDE 23 mmol/L (21-31); CHLORIDE 110 mmol/L (97-110); GLUCOSE 114 mg/dl (70-220); SODIUM 142 mmol/L (135-144); TOTAL PROTEIN 5.2 g/dl (6.1-8.1)
[2017-05-02 09:51] LABS: POTASSIUM 2.8 mmol/L (3.5-5.1)
[2017-05-02 10:02] LABS: ANISOCYTOSIS 2+ (0-0); BAND NEUTROPHILS #M 0.6 10^3/ul (0.0-0.6); BAND NEUTROPHILS % (M) 4 % (0-4); BURR CELLS 1+ (0-0); EOSINOPHILS % (M) 1 % (0-7); HYPOCHROMASIA 2+ (0-0); LYMPHOCYTES #M 1.9 10^3/ul (0.8-2.9); LYMPHOCYTES % (M) 11 % (15-51); MICROCYTOSIS 1+ (0-0); MONOCYTE #M 1.5 10^3/ul (0.3-0.9); MONOCYTES % (M) 9 % (0-11); PLATELET ESTIMATE NORMAL; POIKILOCYTOSIS 1+ (0-0); SEG NEUT #M 13.2 10^3/ul (1.7-7.5); SEGMENTED NEUTROPHILS (M) % 75 % (39-77); SMUDGE%M 12 % (0-0)
[2017-05-02] MEDS: POTASSIUM CHLORIDE 40 MEQ in DEXTROSE 5% 250 ML IVPB (11:56)
[2017-05-02] MEDS: DEXTROSE 5%-0.45% NACL 500 ML IV (16:00)
[2017-05-02] MEDS ORDERED: POTASSIUM CHLORIDE 30 MEQ in SOD CHLORIDE 0.9% 150 ML IVPB (19:00)
[2017-05-02] MEDS: ETOMIDATE 20 MG INJ (21:16)
[2017-05-02] MEDS: MIDAZOLAM 1 MG/ML 2 ML INJ (21:16)
[2017-05-02] MEDS: FENTAnyl 50 MCG/ML VIAL (21:17)
[2017-05-02] MEDS: PROPOFOL 0 ML (21:17)
[2017-05-02] MEDS: INSULIN GLARGINE [LANtus] 3 ML PEN SC (21:28)
[2017-05-03] MEDS: POTASSIUM CHLORIDE 50 ML IVPB ×3 (00:49→04:47)
[2017-05-03] MEDS: metroNIDAZOLE 500 MG TAB NGT ×4 (00:52→22:26)
[2017-05-03] MEDS: ACCU-CHEK XX (02:00)
[2017-05-03] MEDS: PANTOPRAZOLE 40 MG INJ IV ×2 (06:11→17:24)
[2017-05-03 07:35] LABS: WHITE BLOOD COUNT 17.6 10^3/ul (4.8-10.8)
[2017-05-03 07:35] LABS: ABNORMAL IP MESSAGE 1; HEMATOCRIT 29.5 % (37.0-47.0); HEMOGLOBIN 9.1 g/dl (12.0-16.0); MEAN CORPUSCULAR HEMOGLOBIN 27.4 pg (29.0-33.0); MEAN CORPUSCULAR HGB CONC 30.8 g/dl (32.0-37.0); MEAN CORPUSCULAR VOLUME 88.9 fl (82.0-101.0); MEAN PLATELET VOLUME 11.2 fl (7.4-10.4); NUCLEATED RED BLOOD CELLS% 0.6 /100WBC (0.0-0.0); PLATELET COUNT 259 10^3/UL (140-415); RED BLOOD COUNT 3.32 10^6/ul (4.20-5.40); RED CELL DISTRIBUTION WIDTH 16.6 % (11.5-14.5)
[2017-05-03 07:36] LABS: POSITIVE DIFF @See below
[2017-05-03 07:37] LABS: ADD MAN DIFF? YES
[2017-05-03 07:47] LABS: PHOSPHORUS 3.4 mg/dl (2.5-4.9)
[2017-05-03 07:47] LABS: MAGNESIUM 1.8 mg/dl (1.7-2.5)
[2017-05-03] MEDS: INSULIN ASPART [NOVOLOG] 3 ML PEN SC ×4 (08:00→21:00)
[2017-05-03] MEDS: BALSAM PERU/CASTOR OIL 60 GM TUBE TOP (08:15)
[2017-05-03] MEDS: COLLAGENASE 30 GM TUBE TOP (08:15)
[2017-05-03 08:17] LABS: ANION GAP 13 (8-16); BLOOD UREA NITROGEN 45 mg/dl (7-20); CALCIUM 7.7 mg/dl (8.4-10.2); CARBON DIOXIDE 22 mmol/L (21-31); CHLORIDE 109 mmol/L (97-110); CREATININE 4.01 mg/dl (0.44-1.00); GLUCOSE 52 mg/dl (70-220); POTASSIUM 5.2 mmol/L (3.5-5.1); SODIUM 139 mmol/L (135-144)
[2017-05-03] MEDS: BISOPROLOL 5 MG TAB PO (09:00)
[2017-05-03] MEDS: LOSARTAN 50 MG TAB PO ×2 (09:00→22:26)
[2017-05-03 09:03] LABS: ANISOCYTOSIS 1+ (0-0); BAND NEUTROPHILS #M 2.9 10^3/ul (0.0-0.6); BAND NEUTROPHILS % (M) 17 % (0-4); EOSINOPHILS % (M) 2 % (0-7); ERYTHROBLAST% (NRBC) (M) 1 % (0-0); HYPOCHROMASIA 2+ (0-0); LYMPHOCYTES #M 3.6 10^3/ul (0.8-2.9); LYMPHOCYTES % (M) 21 % (15-51); METAMYELOCYTES %M 6 % (0-0); MICROCYTOSIS 1+ (0-0); MONOCYTE #M 1.2 10^3/ul (0.3-0.9); MONOCYTES % (M) 7 % (0-11); PLATELET ESTIMATE NORMAL; POLYCHROMASIA 1+ (0-0); REACTIVE LYMPHOCYTES #M 0.1 10^3/ul (0.0-0.0); REACTIVE LYMPHOCYTES% (M) 1 % (0-0); SEG NEUT #M 8.6 10^3/ul (1.7-7.5); SEGMENTED NEUTROPHILS (M) % 46 % (39-77); SMUDGE%M 7 % (0-0)
[2017-05-03] MEDS: MEROPENEM 500MG/50 ML (PMX) 50 ML IVPB ×2 (09:41→22:26)
[2017-05-03] MEDS: ASCORBIC ACID 500 MG TAB PO (09:42)
[2017-05-03] MEDS: CALCIUM ACETATE 667 MG CAP PO ×3 (09:42→17:25)
[2017-05-03] MEDS: ZINC SULFATE 220 MG CAP PO (09:42)
[2017-05-03] MEDS ORDERED: ALBUMIN HUMAN 25% 50 ML ×2 (15:00→15:04)
[2017-05-03] MEDS: ALBUMIN HUMAN 25% 100 ML IV (15:10)
[2017-05-03] MEDS: ASPIRIN 81 MG TAB PO (17:25)
[2017-05-03] MEDS: EPOETIN 10000 UNITS/1 ML INJ (ESRD) SC (17:26)
[2017-05-03 17:47] LABS: VANCOMYCIN,TROUGH 9.5 ug/ml (10.0-20.0)
[2017-05-03] MEDS: VANCOMYCIN 1 GM 250 ML IVPB (17:52)
[2017-05-03] MEDS: INSULIN GLARGINE [LANtus] 3 ML PEN SC (21:00)
[2017-05-04] MEDS: ACCU-CHEK XX (01:40)
[2017-05-04] MEDS: PANTOPRAZOLE 40 MG INJ IV ×2 (06:16→17:32)
[2017-05-04] MEDS: metroNIDAZOLE 500 MG TAB NGT ×3 (06:16→22:36)
[2017-05-04] MEDS: INSULIN ASPART [NOVOLOG] 3 ML PEN SC ×4 (08:00→22:37)
[2017-05-04] MEDS: COLLAGENASE 30 GM TUBE TOP (09:00)
[2017-05-04] MEDS: LOSARTAN 50 MG TAB PO ×2 (09:00→22:36)
[2017-05-04] MEDS: BALSAM PERU/CASTOR OIL 60 GM TUBE TOP (09:00)
[2017-05-04] MEDS: BISOPROLOL 5 MG TAB PO (09:00)
[2017-05-04] MEDS: ASPIRIN 81 MG TAB PO (09:36)
[2017-05-04] MEDS: CALCIUM ACETATE 667 MG CAP PO ×3 (09:36→17:32)
[2017-05-04] MEDS: ZINC SULFATE 220 MG CAP PO (09:36)
[2017-05-04] MEDS: ASCORBIC ACID 500 MG TAB PO (09:36)
[2017-05-04] MEDS: MEROPENEM 500MG/50 ML (PMX) 50 ML IVPB (09:37)
[2017-05-04 10:27] LABS: WHITE BLOOD COUNT 15.4 10^3/ul (4.8-10.8)
[2017-05-04 10:27] LABS: ABNORMAL IP MESSAGE 1; HEMATOCRIT 31.3 % (37.0-47.0); HEMOGLOBIN 9.7 g/dl (12.0-16.0); MEAN CORPUSCULAR HEMOGLOBIN 27.4 pg (29.0-33.0); MEAN CORPUSCULAR VOLUME 88.4 fl (82.0-101.0); MEAN PLATELET VOLUME 11.3 fl (7.4-10.4); NUCLEATED RED BLOOD CELLS% 0.5 /100WBC (0.0-0.0); PLATELET COUNT 145 10^3/UL (140-415); RED BLOOD COUNT 3.54 10^6/ul (4.20-5.40); RED CELL DISTRIBUTION WIDTH 16.6 % (11.5-14.5)
[2017-05-04 10:28] LABS: POSITIVE DIFF @See below
[2017-05-04 10:29] LABS: ADD MAN DIFF? YES
[2017-05-04 10:45] LABS: ANION GAP 12 (8-16); BLOOD UREA NITROGEN 29 mg/dl (7-20); CALCIUM 7.7 mg/dl (8.4-10.2); CARBON DIOXIDE 22 mmol/L (21-31); CHLORIDE 106 mmol/L (97-110); CREATININE 3.15 mg/dl (0.44-1.00); GLUCOSE 103 mg/dl (70-220); POTASSIUM 3.1 mmol/L (3.5-5.1); SODIUM 137 mmol/L (135-144)
[2017-05-04 11:34] LABS: ANISOCYTOSIS 1+ (0-0); BAND NEUTROPHILS #M 1.5 10^3/ul (0.0-0.6); BAND NEUTROPHILS % (M) 10 % (0-4); EOSINOPHILS % (M) 4 % (0-7); ERYTHROBLAST% (NRBC) (M) 1 % (0-0); HYPOCHROMASIA 1+ (0-0); LYMPHOCYTES #M 2.4 10^3/ul (0.8-2.9); LYMPHOCYTES % (M) 16 % (15-51); METAMYELOCYTES #M 0.7 10^3/ul (0.0-0.0); METAMYELOCYTES %M 5 % (0-0); MONOCYTE #M 1.3 10^3/ul (0.3-0.9); MONOCYTES % (M) 9 % (0-11); MYELOCYTES #M 0.4 10^3/ul (0.0-0.0); MYELOCYTES % (M) 3 % (0-0); OVALOCYTES 1+ (0-0); PLATELET ESTIMATE DECREASED; PLATELET MORPHOLOGY COMMENT @See below; POIKILOCYTOSIS 1+ (0-0); POLYCHROMASIA 1+ (0-0); REACTIVE LYMPHOCYTES #M 0.1 10^3/ul (0.0-0.0); REACTIVE LYMPHOCYTES% (M) 1 % (0-0); SEG NEUT #M 8.2 10^3/ul (1.7-7.5); SEGMENTED NEUTROPHILS (M) % 52 % (39-77); SMUDGE%M 13 % (0-0)
[2017-05-04] MEDS: POTASSIUM CHLORIDE (SR) 10 MEQ TAB PO (13:30)
[2017-05-04] MEDS ORDERED: POTASSIUM CHLORIDE (SR) 10 MEQ TAB (14:04)
[2017-05-04] MEDS ORDERED: TPN 1,000 ML IV (16:30)
[2017-05-04] MEDS ORDERED: LIDOCAINE 1% (MPF) 5 ML VIAL SC (16:30)
[2017-05-04 19:26] LABS: ALANINE AMINOTRANSFERASE 28 IU/L (13-69); ALBUMIN 2.4 g/dl (3.3-4.9); ALBUMIN/GLOBULIN RATIO 0.75; ALKALINE PHOSPHATASE 88 IU/L (42-121); ANION GAP 11 (8-16); ASPARTATE AMINO TRANSFERASE 19 IU/L (15-46); BLOOD UREA NITROGEN 31 mg/dl (7-20); CALCIUM 7.6 mg/dl (8.4-10.2); CARBON DIOXIDE 23 mmol/L (21-31); CHLORIDE 104 mmol/L (97-110); CREATININE 3.38 mg/dl (0.44-1.00); GLUCOSE 145 mg/dl (70-220); MAGNESIUM 1.6 mg/dl (1.7-2.5); PHOSPHORUS 2.9 mg/dl (2.5-4.9); POTASSIUM 3.1 mmol/L (3.5-5.1); SODIUM 135 mmol/L (135-144); TOTAL PROTEIN 5.6 g/dl (6.1-8.1); TRIGLYCERIDES 244 mg/dl (0-149)
[2017-05-04 20:07] LABS: PREALBUMIN 8.3 mg/dl (17.6-36.0)
[2017-05-04] MEDS: DICYCLOMINE 10 MG CAP PO (22:37)
[2017-05-04] MEDS: TPN 1,000 ML IV (22:37)
[2017-05-04] MEDS: ACETAMINOPHEN 325 MG TAB PO (22:38)
[2017-05-04] MEDS: INSULIN GLARGINE [LANtus] 3 ML PEN SC (22:44)
[2017-05-05] MEDS: ACCU-CHEK XX (04:22)
[2017-05-05] MEDS: metroNIDAZOLE 500 MG TAB NGT ×3 (05:51→22:00)
[2017-05-05] MEDS: PANTOPRAZOLE 40 MG INJ IV ×2 (05:51→17:46)
[2017-05-05] MEDS: ASCORBIC ACID 500 MG TAB PO (08:12)
[2017-05-05] MEDS: ASPIRIN 81 MG TAB PO (08:12)
[2017-05-05] MEDS: ZINC SULFATE 220 MG CAP PO (08:12)
[2017-05-05] MEDS: CALCIUM ACETATE 667 MG CAP PO ×3 (08:13→17:46)
[2017-05-05] MEDS: DICYCLOMINE 10 MG CAP PO ×2 (08:13→21:06)
[2017-05-05] MEDS: LOSARTAN 50 MG TAB PO ×2 (08:13→21:06)
[2017-05-05] MEDS: BISOPROLOL 5 MG TAB PO (08:14)
[2017-05-05] MEDS: BALSAM PERU/CASTOR OIL 60 GM TUBE TOP (08:14)
[2017-05-05] MEDS: COLLAGENASE 30 GM TUBE TOP (08:15)
[2017-05-05] MEDS: INSULIN ASPART [NOVOLOG] 3 ML PEN SC ×4 (08:17→21:08)
[2017-05-05 09:23] LABS: ALANINE AMINOTRANSFERASE 26 IU/L (13-69); ALBUMIN 2.2 g/dl (3.3-4.9); ALBUMIN/GLOBULIN RATIO 0.73; ALKALINE PHOSPHATASE 76 IU/L (42-121); ANION GAP 13 (8-16); ASPARTATE AMINO TRANSFERASE 18 IU/L (15-46); BLOOD UREA NITROGEN 34 mg/dl (7-20); CALCIUM 7.5 mg/dl (8.4-10.2); CARBON DIOXIDE 19 mmol/L (21-31); CHLORIDE 107 mmol/L (97-110); CREATININE 3.27 mg/dl (0.44-1.00); GLUCOSE 171 mg/dl (70-220); POTASSIUM 3.4 mmol/L (3.5-5.1); SODIUM 136 mmol/L (135-144); TOTAL PROTEIN 5.2 g/dl (6.1-8.1)
[2017-05-05 09:24] LABS: MAGNESIUM 1.7 mg/dl (1.7-2.5)
[2017-05-05] MEDS: TPN 1,000 ML IV (16:35)
[2017-05-05] MEDS: POTASSIUM CHLORIDE (SR) 20 MEQ TAB PO (21:06)
[2017-05-05] MEDS: INSULIN GLARGINE [LANtus] 3 ML PEN SC (21:08)
[2017-05-06] MEDS: ACCU-CHEK XX (02:00)
[2017-05-06] MEDS: metroNIDAZOLE 500 MG TAB NGT ×3 (05:42→20:29)
[2017-05-06] MEDS: PANTOPRAZOLE 40 MG INJ IV ×2 (05:42→16:46)
[2017-05-06 06:40] LABS: VANCOMYCIN,RANDOM 13.7 ug/ml
[2017-05-06] MEDS: INSULIN ASPART [NOVOLOG] 3 ML PEN SC ×4 (08:07→20:28)
[2017-05-06] MEDS: LORAZEPAM 2 MG INJ IV (08:07)
[2017-05-06] MEDS: ASPIRIN 81 MG TAB PO (08:10)
[2017-05-06] MEDS: ZINC SULFATE 220 MG CAP PO (08:10)
[2017-05-06] MEDS: CALCIUM ACETATE 667 MG CAP PO ×3 (08:10→16:47)
[2017-05-06] MEDS: ASCORBIC ACID 500 MG TAB PO (08:10)
[2017-05-06] MEDS: LOSARTAN 50 MG TAB PO ×2 (08:11→20:29)
[2017-05-06] MEDS: DICYCLOMINE 10 MG CAP PO ×2 (08:12→20:28)
[2017-05-06] MEDS: BISOPROLOL 5 MG TAB PO (08:12)
[2017-05-06] MEDS: BALSAM PERU/CASTOR OIL 60 GM TUBE TOP (08:15)
[2017-05-06] MEDS: COLLAGENASE 30 GM TUBE TOP (08:15)
[2017-05-06] MEDS: TPN 1,000 ML IV (08:36)
[2017-05-06] MEDS: VANCOMYCIN 750 MG in DEXTROSE 5% 150 ML IVPB (12:11)
[2017-05-06] MEDS: EPOETIN 10000 UNITS/1 ML INJ (ESRD) SC (16:46)
[2017-05-06] MEDS ORDERED: VANCOMYCIN 750 MG in DEXTROSE 5% 150 ML IVPB (18:00)
[2017-05-06] MEDS: INSULIN GLARGINE [LANtus] 3 ML PEN SC (21:01)
[2017-05-07] MEDS: METOPROLOL 5 MG INJ IV (00:10)
[2017-05-07] MEDS: TPN 1,000 ML IV ×2 (00:11→18:20)
[2017-05-07] MEDS: ACCU-CHEK XX (02:00)
[2017-05-07] MEDS: metroNIDAZOLE 500 MG TAB NGT ×3 (05:58→22:10)
[2017-05-07] MEDS: PANTOPRAZOLE 40 MG INJ IV ×2 (05:58→18:07)
[2017-05-07 07:34] LABS: ADD MAN DIFF? NO
[2017-05-07 07:40] LABS: ABNORMAL IP MESSAGE 1; BASOPHILS % 0.3 % (0.0-2.0); EOSINOPHILS # 0.1 10^3/ul (0.0-0.5); EOSINOPHILS % 0.4 % (0.0-7.0); HEMATOCRIT 26.2 % (37.0-47.0); HEMOGLOBIN 8.3 g/dl (12.0-16.0); LYMPHOCYTES # 3.4 10^3/ul (0.8-2.9); LYMPHOCYTES % 24.5 % (15.0-51.0); MEAN CORPUSCULAR HEMOGLOBIN 27.7 pg (29.0-33.0); MEAN CORPUSCULAR HGB CONC 31.7 g/dl (32.0-37.0); MEAN CORPUSCULAR VOLUME 87.3 fl (82.0-101.0); MEAN PLATELET VOLUME 11.5 fl (7.4-10.4); MONOCYTE # 1.8 10^3/ul (0.3-0.9); MONOCYTES % 13.3 % (0.0-11.0); NEUTROPHIL # 7.9 10^3/ul (1.6-7.5); NEUTROPHILS % 57.8 % (39.0-77.0); PLATELET COUNT 175 10^3/UL (140-415); RED CELL DISTRIBUTION WIDTH 17.2 % (11.5-14.5)
[2017-05-07 07:40] LABS: WHITE BLOOD COUNT 13.7 10^3/ul (4.8-10.8)
[2017-05-07 07:51] LABS: POSITIVE DIFF @See below
[2017-05-07 08:24] LABS: MAGNESIUM 1.6 mg/dl (1.7-2.5)
[2017-05-07 08:31] LABS: ALANINE AMINOTRANSFERASE 23 IU/L (13-69); ALBUMIN/GLOBULIN RATIO 0.64; ALKALINE PHOSPHATASE 64 IU/L (42-121); ANION GAP 10 (8-16); ASPARTATE AMINO TRANSFERASE 17 IU/L (15-46); BLOOD UREA NITROGEN 37 mg/dl (7-20); CALCIUM 9.3 mg/dl (8.4-10.2); CARBON DIOXIDE 23 mmol/L (21-31); CHLORIDE 99 mmol/L (97-110); CREATININE 2.62 mg/dl (0.44-1.00); GLUCOSE 239 mg/dl (70-220); POTASSIUM 4.2 mmol/L (3.5-5.1); SODIUM 128 mmol/L (135-144); TOTAL PROTEIN 5.1 g/dl (6.1-8.1)
[2017-05-07] MEDS: CALCIUM ACETATE 667 MG CAP PO ×3 (08:48→18:08)
[2017-05-07] MEDS: INSULIN ASPART [NOVOLOG] 3 ML PEN SC ×4 (08:51→21:02)
[2017-05-07] MEDS: ASCORBIC ACID 500 MG TAB PO (08:51)
[2017-05-07] MEDS: ASPIRIN 81 MG TAB PO (08:53)
[2017-05-07] MEDS: ZINC SULFATE 220 MG CAP PO (08:54)
[2017-05-07] MEDS: DICYCLOMINE 10 MG CAP PO ×2 (08:54→21:01)
[2017-05-07] MEDS: BALSAM PERU/CASTOR OIL 60 GM TUBE TOP (08:54)
[2017-05-07] MEDS: COLLAGENASE 30 GM TUBE TOP (08:55)
[2017-05-07] MEDS: BISOPROLOL 5 MG TAB PO (08:58)
[2017-05-07] MEDS: LOSARTAN 50 MG TAB PO ×2 (08:58→21:01)
[2017-05-07 09:39] LABS: MAGNESIUM 1.7 mg/dl (1.7-2.5)
[2017-05-07 09:39] LABS: PHOSPHORUS 2.2 mg/dl (2.5-4.9)
[2017-05-07 09:47] LABS: PREALBUMIN 7.1 mg/dl (17.6-36.0)
[2017-05-07] MEDS: INSULIN GLARGINE [LANtus] 3 ML PEN SC (21:02)
[2017-05-08] MEDS: ALBUMIN HUMAN 25% 100 ML IV ×2 (01:52→02:02)
[2017-05-08] MEDS: ACCU-CHEK XX (02:00)
[2017-05-08] MEDS: HEPARIN 1000 UNITS/ML 10 ML INJ CATHETER (03:57)
[2017-05-08] MEDS: MAGNESIUM SULFATE 2 GM/50 ML 50 ML IVPB (04:20)
[2017-05-08] MEDS: SODIUM PHOSPHATE 15 MMOL in SOD CHLORIDE 0.9% 250 ML IVPB (04:21)
[2017-05-08] MEDS: PANTOPRAZOLE 40 MG INJ IV ×2 (05:40→17:41)
[2017-05-08] MEDS: metroNIDAZOLE 500 MG TAB NGT ×3 (05:40→22:00)
[2017-05-08] MEDS: METOPROLOL 5 MG INJ IV (06:29)
[2017-05-08] MEDS: INSULIN ASPART [NOVOLOG] 3 ML PEN SC ×4 (08:27→21:30)
[2017-05-08] MEDS: ACETAMINOPHEN 325 MG TAB PO (08:28)
[2017-05-08 09:59] LABS: ADD MAN DIFF? NO
[2017-05-08 10:16] LABS: WHITE BLOOD COUNT 10.1 10^3/ul (4.8-10.8)
[2017-05-08 10:16] LABS: BASOPHILS % 0.1 % (0.0-2.0); EOSINOPHILS % 0.2 % (0.0-7.0); HEMATOCRIT 23.7 % (37.0-47.0); HEMOGLOBIN 7.6 g/dl (12.0-16.0); LYMPHOCYTES % 10.2 % (15.0-51.0); MEAN CORPUSCULAR HEMOGLOBIN 27.7 pg (29.0-33.0); MEAN CORPUSCULAR HGB CONC 32.1 g/dl (32.0-37.0); MEAN CORPUSCULAR VOLUME 86.5 fl (82.0-101.0); MEAN PLATELET VOLUME 11.2 fl (7.4-10.4); MONOCYTES % 9.9 % (0.0-11.0); NEUTROPHIL # 7.9 10^3/ul (1.6-7.5); NEUTROPHILS % 78.3 % (39.0-77.0); PLATELET COUNT 163 10^3/UL (140-415); RED BLOOD COUNT 2.74 10^6/ul (4.20-5.40); RED CELL DISTRIBUTION WIDTH 17.2 % (11.5-14.5)
[2017-05-08] MEDS: DICYCLOMINE 10 MG CAP PO ×2 (10:24→21:00)
[2017-05-08] MEDS: ASCORBIC ACID 500 MG TAB PO (10:24)
[2017-05-08] MEDS: BALSAM PERU/CASTOR OIL 60 GM TUBE TOP (10:24)
[2017-05-08] MEDS: ZINC SULFATE 220 MG CAP PO (10:25)
[2017-05-08] MEDS: BISOPROLOL 5 MG TAB PO (10:25)
[2017-05-08] MEDS: LOSARTAN 50 MG TAB PO ×2 (10:25→21:00)
[2017-05-08] MEDS: ASPIRIN 81 MG TAB PO (10:26)
[2017-05-08 10:30] LABS: POSITIVE DIFF @See below
[2017-05-08 10:48] LABS: PHOSPHORUS 2.9 mg/dl (2.5-4.9)
[2017-05-08] MEDS: COLLAGENASE 30 GM TUBE TOP (11:00)
[2017-05-08] MEDS: TPN 1,000 ML IV (11:01)
[2017-05-08 13:12] LABS: ANISOCYTOSIS 1+ (0-0); BAND NEUTROPHILS #M 3.3 10^3/ul (0.0-0.6); BAND NEUTROPHILS % (M) 33 % (0-4); GIANT THROMBO% (M) 2 % (0-0); HYPOCHROMASIA 1+ (0-0); LYMPHOCYTES #M 0.7 10^3/ul (0.8-2.9); LYMPHOCYTES % (M) 7 % (15-51); MICROCYTOSIS 1+ (0-0); MONOCYTES % (M) 10 % (0-11); PLATELET ESTIMATE NORMAL; POLYCHROMASIA 1+ (0-0); PROMYELOCYTES #M 0.1 10^3/ul (0-0); PROMYELOCYTES % (M) 1 % (0-0); REACTIVE LYMPHOCYTES #M 0.1 10^3/ul (0.0-0.0); REACTIVE LYMPHOCYTES% (M) 1 % (0-0); SEG NEUT #M 5.2 10^3/ul (1.7-7.5); SEGMENTED NEUTROPHILS (M) % 48 % (39-77); SMUDGE%M 2 % (0-0)
[2017-05-08] MEDS ORDERED: FAT EMULSION 20% 250 ML IV (15:00)
[2017-05-08] MEDS: FAT EMULSION 20% 250 ML IV (15:51)
[2017-05-08] MEDS: EPOETIN 10000 UNITS/1 ML INJ (ESRD) SC (17:42)
[2017-05-08] MEDS: ERTAPENEM SODIUM 0.5 GM in SOD CHLORIDE 0.9% 100 ML IVPB ×2 (18:56→19:04)
[2017-05-08] MEDS: INSULIN GLARGINE [LANtus] 3 ML PEN SC (21:29)
[2017-05-09] MEDS: ACCU-CHEK XX (02:00)
[2017-05-09] MEDS: TPN 1,000 ML IV ×2 (03:02→22:00)
[2017-05-09] MEDS: metroNIDAZOLE 500 MG TAB NGT ×3 (05:35→20:21)
[2017-05-09] MEDS: PANTOPRAZOLE 40 MG INJ IV ×2 (05:35→18:03)
[2017-05-09] MEDS: ACETAMINOPHEN 325 MG TAB PO ×2 (06:27→20:21)
[2017-05-09 07:57] LABS: ADD MAN DIFF? NO
[2017-05-09 08:09] LABS: WHITE BLOOD COUNT 7.7 10^3/ul (4.8-10.8)
[2017-05-09 08:09] LABS: BASOPHILS % 0.3 % (0.0-2.0); EOSINOPHILS # 0.1 10^3/ul (0.0-0.5); EOSINOPHILS % 1.2 % (0.0-7.0); HEMATOCRIT 24.8 % (37.0-47.0); HEMOGLOBIN 7.7 g/dl (12.0-16.0); LYMPHOCYTES # 1.6 10^3/ul (0.8-2.9); LYMPHOCYTES % 20.6 % (15.0-51.0); MEAN CORPUSCULAR HEMOGLOBIN 27.5 pg (29.0-33.0); MEAN CORPUSCULAR VOLUME 88.6 fl (82.0-101.0); MEAN PLATELET VOLUME 11.1 fl (7.4-10.4); MONOCYTE # 1.3 10^3/ul (0.3-0.9); MONOCYTES % 16.9 % (0.0-11.0); NEUTROPHIL # 4.6 10^3/ul (1.6-7.5); NEUTROPHILS % 59.6 % (39.0-77.0); PLATELET COUNT 186 10^3/UL (140-415)
[2017-05-09] MEDS: INSULIN ASPART [NOVOLOG] 3 ML PEN SC ×4 (08:09→20:29)
[2017-05-09 08:10] LABS: POSITIVE DIFF @See below
[2017-05-09 08:22] LABS: TRIGLYCERIDES 195 mg/dl (0-149)
[2017-05-09] MEDS: LOSARTAN 50 MG TAB PO ×2 (08:29→20:21)
[2017-05-09] MEDS: BISOPROLOL 5 MG TAB PO (08:29)
[2017-05-09 08:32] LABS: ANION GAP 10 (8-16); BLOOD UREA NITROGEN 33 mg/dl (7-20); CALCIUM 8.2 mg/dl (8.4-10.2); CARBON DIOXIDE 27 mmol/L (21-31); CHLORIDE 99 mmol/L (97-110); CREATININE 2.19 mg/dl (0.44-1.00); GLUCOSE 155 mg/dl (70-220); POTASSIUM 3.9 mmol/L (3.5-5.1); SODIUM 132 mmol/L (135-144)
[2017-05-09] MEDS: COLLAGENASE 30 GM TUBE TOP (10:01)
[2017-05-09] MEDS: BALSAM PERU/CASTOR OIL 60 GM TUBE TOP (10:02)
[2017-05-09] MEDS: ASCORBIC ACID 500 MG TAB PO (10:05)
[2017-05-09] MEDS: DICYCLOMINE 10 MG CAP PO ×2 (10:05→20:21)
[2017-05-09] MEDS: ASPIRIN 81 MG TAB PO (10:05)
[2017-05-09] MEDS: MULTIVIT/CA CARB/B CMPLX/FA TAB PO (10:05)
[2017-05-09] MEDS: HEPARIN 1000 UNITS/ML 10 ML INJ CATHETER (13:50)
[2017-05-09] MEDS: IOHEXOL 14.3 MG(I)/ML (ADULT) BTL PO (14:58)
[2017-05-09] MEDS: VANCOMYCIN 750 MG in DEXTROSE 5% 150 ML IVPB (14:58)
[2017-05-09] MEDS: SOD CHLORIDE 0.9% 100 ML (16:35)
[2017-05-09] MEDS: IODIXANOL LOCM 100 ML BTL (16:35)
[2017-05-09] MEDS: TAMSULOSIN (SR) 0.4 MG CAP PO (20:21)
[2017-05-09] MEDS: INSULIN GLARGINE [LANtus] 3 ML PEN SC (22:03)
[2017-05-09] MEDS: ERTAPENEM SODIUM 0.5 GM in SOD CHLORIDE 0.9% 100 ML IVPB (22:03)
[2017-05-10] MEDS: ACCU-CHEK XX (02:00)
[2017-05-10] MEDS: PANTOPRAZOLE 40 MG INJ IV ×2 (05:55→17:38)
[2017-05-10] MEDS: metroNIDAZOLE 500 MG TAB NGT ×3 (05:55→21:12)
[2017-05-10] MEDS: INSULIN ASPART [NOVOLOG] 3 ML PEN SC ×4 (08:17→21:18)
[2017-05-10] MEDS: LOSARTAN 50 MG TAB PO ×2 (08:19→21:00)
[2017-05-10] MEDS: MULTIVIT/CA CARB/B CMPLX/FA TAB PO (08:19)
[2017-05-10] MEDS: BISOPROLOL 5 MG TAB PO (08:19)
[2017-05-10] MEDS: DICYCLOMINE 10 MG CAP PO ×2 (08:19→21:12)
[2017-05-10] MEDS: ASPIRIN 81 MG TAB PO (08:19)
[2017-05-10] MEDS: ASCORBIC ACID 500 MG TAB PO (08:19)
[2017-05-10] MEDS: COLLAGENASE 30 GM TUBE TOP (08:21)
[2017-05-10] MEDS: BALSAM PERU/CASTOR OIL 60 GM TUBE TOP (08:21)
[2017-05-10 09:58] LABS: ANION GAP 9 (8-16); BLOOD UREA NITROGEN 25 mg/dl (7-20); CALCIUM 7.6 mg/dl (8.4-10.2); CARBON DIOXIDE 28 mmol/L (21-31); CHLORIDE 97 mmol/L (97-110); CREATININE 2.02 mg/dl (0.44-1.00); GLUCOSE 146 mg/dl (70-220); MAGNESIUM 1.8 mg/dl (1.7-2.5); PHOSPHORUS 2.7 mg/dl (2.5-4.9); POTASSIUM 3.7 mmol/L (3.5-5.1); SODIUM 130 mmol/L (135-144)
[2017-05-10] MEDS: TPN 1,000 ML IV (12:16)
[2017-05-10] MEDS: ACETAMINOPHEN 325 MG TAB PO (14:46)
[2017-05-10] MEDS: FAT EMULSION 20% 250 ML IV (16:23)
[2017-05-10] MEDS: EPOETIN 10000 UNITS/1 ML INJ (ESRD) SC (16:23)
[2017-05-10] MEDS: ERTAPENEM SODIUM 0.5 GM in SOD CHLORIDE 0.9% 100 ML IVPB (17:38)
[2017-05-10] MEDS: TAMSULOSIN (SR) 0.4 MG CAP PO (21:12)
[2017-05-10] MEDS: INSULIN GLARGINE [LANtus] 3 ML PEN SC (21:23)
[2017-05-11] MEDS: ONDANSETRON 4 MG INJ IV (00:17)
[2017-05-11] MEDS: ACCU-CHEK XX (02:00)
[2017-05-11] MEDS ORDERED: LORAZEPAM 2 MG INJ IV ×2 (02:30→07:30)
[2017-05-11] MEDS ORDERED: LEVETIRACETAM IV 500 MG in DEXTROSE 5% 100 ML IVPB (02:30)
[2017-05-11] MEDS: LORAZEPAM 2 MG INJ IV (02:34)
[2017-05-11 02:36] LABS: Arterial Base Excess 0.8 mmol/L (-3.0-3); Arterial Blood Gas Oxygen Sat 95.1 mmHG (95.0-98.0); Arterial COHb 0.2 % (0.0-3.0); Arterial Fraction of Oxyhgb 94.9 % (93.0-99.0); Arterial HCO3 25.5 mmol/L (22.0-26.0); Arterial MetHb 0 % (0.0-1.5); Arterial Total Hemglobin 8.1 g/dl (12.0-18.0); Arterial pCO2 40.9 mmhg (35-45); MODE NASAL CANNULA; Site Right Brachial
[2017-05-11] MEDS: LEVETIRACETAM 500 MG (PMX) 100 ML IVPB ×3 (03:40→20:01)
[2017-05-11] MEDS: metroNIDAZOLE 500 MG TAB NGT ×3 (05:44→22:32)
[2017-05-11] MEDS: PANTOPRAZOLE 40 MG INJ IV ×2 (05:44→17:14)
[2017-05-11] MEDS: BISOPROLOL 5 MG TAB PO (08:31)
[2017-05-11] MEDS: DICYCLOMINE 10 MG CAP PO ×2 (08:31→20:26)
[2017-05-11] MEDS: MULTIVIT/CA CARB/B CMPLX/FA TAB PO (08:31)
[2017-05-11] MEDS: ASCORBIC ACID 500 MG TAB PO (08:31)
[2017-05-11] MEDS: LOSARTAN 50 MG TAB PO ×2 (08:31→20:10)
[2017-05-11] MEDS: ASPIRIN 81 MG TAB PO (08:31)
[2017-05-11] MEDS: TPN 1,000 ML IV (08:31)
[2017-05-11] MEDS: COLLAGENASE 30 GM TUBE TOP (08:32)
[2017-05-11] MEDS: BALSAM PERU/CASTOR OIL 60 GM TUBE TOP (08:32)
[2017-05-11] MEDS: INSULIN ASPART [NOVOLOG] 3 ML PEN SC ×4 (08:41→21:00)
[2017-05-11 09:11] LABS: ANION GAP 10 (8-16); BLOOD UREA NITROGEN 32 mg/dl (7-20); CALCIUM 7.6 mg/dl (8.4-10.2); CARBON DIOXIDE 30 mmol/L (21-31); CHLORIDE 96 mmol/L (97-110); CREATININE 2.55 mg/dl (0.44-1.00); GLUCOSE 156 mg/dl (70-220); MAGNESIUM 1.9 mg/dl (1.7-2.5); PHOSPHORUS 3.1 mg/dl (2.5-4.9); POTASSIUM 3.7 mmol/L (3.5-5.1); SODIUM 132 mmol/L (135-144); TRIGLYCERIDES 187 mg/dl (0-149)
[2017-05-11] MEDS ORDERED: AMIKACIN IV PER PHARMACY XX (12:30)
[2017-05-11] MEDS: FOSFOMYCIN 3 GM PACKET PO (16:39)
[2017-05-11] MEDS: AMIKACIN 450 MG in DEXTROSE 5% 100 ML IVPB (16:40)
[2017-05-11] MEDS: LINEZOLID 600 MG/D5W (PMX) 300 ML IVPB (20:01)
[2017-05-11] MEDS: TAMSULOSIN (SR) 0.4 MG CAP PO (20:27)
[2017-05-11] MEDS: INSULIN GLARGINE [LANtus] 3 ML PEN SC (21:41)
[2017-05-12] MEDS: TPN 1,000 ML IV ×2 (01:56→14:08)
[2017-05-12] MEDS: ACCU-CHEK XX (02:00)
[2017-05-12] MEDS: metroNIDAZOLE 500 MG TAB NGT ×3 (05:36→22:00)
[2017-05-12] MEDS: PANTOPRAZOLE 40 MG INJ IV ×2 (05:36→17:10)
[2017-05-12] MEDS: INSULIN ASPART [NOVOLOG] 3 ML PEN SC ×4 (08:00→21:00)
[2017-05-12 08:32] LABS: ANION GAP 9 (8-16); BLOOD UREA NITROGEN 33 mg/dl (7-20); CALCIUM 7.3 mg/dl (8.4-10.2); CARBON DIOXIDE 29 mmol/L (21-31); CHLORIDE 98 mmol/L (97-110); CREATININE 2.86 mg/dl (0.44-1.00); GLUCOSE 83 mg/dl (70-220); POTASSIUM 3.8 mmol/L (3.5-5.1); SODIUM 132 mmol/L (135-144)
[2017-05-12 08:45] LABS: MAGNESIUM 1.9 mg/dl (1.7-2.5)
[2017-05-12] MEDS: LINEZOLID 600 MG/D5W (PMX) 300 ML IVPB ×2 (08:52→21:00)
[2017-05-12] MEDS: LEVETIRACETAM 500 MG (PMX) 100 ML IVPB ×2 (08:52→21:00)
[2017-05-12] MEDS: ASPIRIN 81 MG TAB PO (08:54)
[2017-05-12] MEDS: ASCORBIC ACID 500 MG TAB PO (08:54)
[2017-05-12] MEDS: BISOPROLOL 5 MG TAB PO (08:54)
[2017-05-12] MEDS: MULTIVIT/CA CARB/B CMPLX/FA TAB PO (08:54)
[2017-05-12] MEDS: DICYCLOMINE 10 MG CAP PO ×2 (08:54→21:00)
[2017-05-12] MEDS: BALSAM PERU/CASTOR OIL 60 GM TUBE TOP (08:55)
[2017-05-12] MEDS: COLLAGENASE 30 GM TUBE TOP (08:55)
[2017-05-12] MEDS: LOSARTAN 50 MG TAB PO ×2 (08:55→21:00)
[2017-05-12] MEDS: FAT EMULSION 20% 250 ML IV (17:11)
[2017-05-12] MEDS: TAMSULOSIN (SR) 0.4 MG CAP PO (21:00)
[2017-05-12] MEDS: INSULIN GLARGINE [LANtus] 3 ML PEN SC (21:00)
[2017-05-12] MEDS: ALBUMIN HUMAN 25% 100 ML IV (23:32)
[2017-05-13] MEDS: ACCU-CHEK XX (02:00)
[2017-05-13] MEDS: HEPARIN 1000 UNITS/ML 10 ML INJ CATHETER (02:06)
[2017-05-13] MEDS: metroNIDAZOLE 500 MG TAB NGT ×3 (05:49→21:44)
[2017-05-13] MEDS: PANTOPRAZOLE 40 MG INJ IV ×2 (05:49→17:23)
[2017-05-13] MEDS: INSULIN ASPART [NOVOLOG] 3 ML PEN SC ×4 (08:00→21:26)
[2017-05-13] MEDS: ASPIRIN 81 MG TAB PO ×2 (09:29→11:44)
[2017-05-13] MEDS: LOSARTAN 50 MG TAB PO ×2 (09:29→21:00)
[2017-05-13] MEDS: MULTIVIT/CA CARB/B CMPLX/FA TAB PO ×2 (09:29→11:44)
[2017-05-13] MEDS: DICYCLOMINE 10 MG CAP PO ×2 (09:29→21:06)
[2017-05-13] MEDS: ASCORBIC ACID 500 MG TAB PO ×2 (09:29→11:44)
[2017-05-13] MEDS: LEVETIRACETAM 500 MG (PMX) 100 ML IVPB ×2 (09:30→20:50)
[2017-05-13] MEDS: LINEZOLID 600 MG/D5W (PMX) 300 ML IVPB ×2 (09:30→20:50)
[2017-05-13] MEDS: TPN 1,000 ML IV (09:30)
[2017-05-13] MEDS: BALSAM PERU/CASTOR OIL 60 GM TUBE TOP (09:32)
[2017-05-13] MEDS: COLLAGENASE 30 GM TUBE TOP (09:32)
[2017-05-13] MEDS: BISOPROLOL 5 MG TAB PO ×2 (09:37→11:45)
[2017-05-13 10:13] LABS: ANION GAP 6 (8-16); BLOOD UREA NITROGEN 17 mg/dl (7-20); CALCIUM 8.2 mg/dl (8.4-10.2); CARBON DIOXIDE 31 mmol/L (21-31); CHLORIDE 104 mmol/L (97-110); CREATININE 1.95 mg/dl (0.44-1.00); GLUCOSE 76 mg/dl (70-220); MAGNESIUM 1.8 mg/dl (1.7-2.5); PHOSPHORUS 2.6 mg/dl (2.5-4.9); POTASSIUM 3.4 mmol/L (3.5-5.1); SODIUM 138 mmol/L (135-144); TRIGLYCERIDES 193 mg/dl (0-149)
[2017-05-13] MEDS: AMIKACIN 300 MG in DEXTROSE 5% 100 ML IVPB (11:42)
[2017-05-13] MEDS: EPOETIN 10000 UNITS/1 ML INJ (ESRD) SC (17:24)
[2017-05-13] MEDS: POTASSIUM CHLORIDE 50 ML IVPB ×2 (18:11→20:46)
[2017-05-13] MEDS: TAMSULOSIN (SR) 0.4 MG CAP PO (21:06)
[2017-05-13] MEDS: INSULIN GLARGINE [LANtus] 3 ML PEN SC (21:26)
[2017-05-13] MEDS ORDERED: ALBUMIN HUMAN 25% 50 ML IV (23:00)
[2017-05-14] MEDS: TPN 1,000 ML IV
[2017-05-14] MEDS: ACCU-CHEK XX (02:00)
[2017-05-14] MEDS: PANTOPRAZOLE 40 MG INJ IV ×2 (05:57→17:27)
[2017-05-14] MEDS: metroNIDAZOLE 500 MG TAB NGT ×2 (05:57→14:00)
[2017-05-14] MEDS: INSULIN ASPART [NOVOLOG] 3 ML PEN SC ×4 (08:00→20:20)
[2017-05-14] MEDS: LEVETIRACETAM 500 MG (PMX) 100 ML IVPB ×2 (08:54→20:20)
[2017-05-14] MEDS: LINEZOLID 600 MG/D5W (PMX) 300 ML IVPB ×2 (08:54→20:20)
[2017-05-14] MEDS: BALSAM PERU/CASTOR OIL 60 GM TUBE TOP (08:55)
[2017-05-14] MEDS: COLLAGENASE 30 GM TUBE TOP (08:55)
[2017-05-14] MEDS: LOSARTAN 50 MG TAB PO ×2 (08:56→20:20)
[2017-05-14] MEDS: DICYCLOMINE 10 MG CAP PO ×2 (09:00→20:20)
[2017-05-14 10:07] LABS: WHITE BLOOD COUNT 8.4 10^3/ul (4.8-10.8)
[2017-05-14 10:07] LABS: ABNORMAL IP MESSAGE 1; HEMATOCRIT 22.3 % (37.0-47.0); MEAN CORPUSCULAR HEMOGLOBIN 27.3 pg (29.0-33.0); MEAN CORPUSCULAR HGB CONC 30.5 g/dl (32.0-37.0); MEAN CORPUSCULAR VOLUME 89.6 fl (82.0-101.0); MEAN PLATELET VOLUME 10.4 fl (7.4-10.4); NUCLEATED RED BLOOD CELLS% 0.2 /100WBC (0.0-0.0); PLATELET COUNT 279 10^3/UL (140-415); RED BLOOD COUNT 2.49 10^6/ul (4.20-5.40); RED CELL DISTRIBUTION WIDTH 16.7 % (11.5-14.5)
[2017-05-14 10:14] LABS: POSITIVE DIFF @See below
[2017-05-14 10:16] LABS: ADD MAN DIFF? YES; HEMOGLOBIN 6.8 g/dl (12.0-16.0)
[2017-05-14 10:22] LABS: ANION GAP 10 (8-16); BLOOD UREA NITROGEN 18 mg/dl (7-20); CALCIUM 7.7 mg/dl (8.4-10.2); CARBON DIOXIDE 29 mmol/L (21-31); CHLORIDE 106 mmol/L (97-110); CREATININE 2.42 mg/dl (0.44-1.00); GLUCOSE 68 mg/dl (70-220); POTASSIUM 3.5 mmol/L (3.5-5.1); SODIUM 141 mmol/L (135-144)
[2017-05-14 12:38] LABS: HEMATOCRIT 22.7 % (37.0-47.0)
[2017-05-14 12:47] LABS: HEMOGLOBIN 6.9 g/dl (12.0-16.0)
[2017-05-14 13:44] LABS: ANISOCYTOSIS 1+ (0-0); BAND NEUTROPHILS #M 1.2 10^3/ul (0.0-0.6); BAND NEUTROPHILS % (M) 15 % (0-4); BASOPHILS % (M) 1 % (0-2); EOSINOPHILS % (M) 6 % (0-7); GIANT THROMBO% (M) 1 % (0-0); LYMPHOCYTES #M 1.7 10^3/ul (0.8-2.9); LYMPHOCYTES % (M) 21 % (15-51); MICROCYTOSIS 1+ (0-0); MONOCYTE #M 1.8 10^3/ul (0.3-0.9); MONOCYTES % (M) 22 % (0-11); PLATELET ESTIMATE NORMAL; POLYCHROMASIA 1+ (0-0); SEGMENTED NEUTROPHILS (M) % 35 % (39-77); SMUDGE%M 20 % (0-0)
[2017-05-14 14:14] LABS: HAAIG REFLEX REFLEX FILED
[2017-05-14 17:07] LABS: AHG CROSSMATCH 1 1
[2017-05-14 17:13] LABS: HEPATITIS B SURFACE ANTIGEN NEGATIVE (NEGATIVE)
[2017-05-14 17:31] LABS: HEPATITIS B CORE ANTIBODY NEGATIVE (NEGATIVE); HEPATITIS C VIRAL ANTIBODY NEGATIVE (NEGATIVE)
[2017-05-14] MEDS: HEPARIN 1000 UNITS/ML 10 ML INJ CATHETER (19:31)
[2017-05-14] MEDS: TAMSULOSIN (SR) 0.4 MG CAP PO (20:20)
[2017-05-14] MEDS: INSULIN GLARGINE [LANtus] 3 ML PEN SC (20:25)
== END 2017-05-14 21:45 | DRG 291 ==
LOC: MS3 23:29 → E/R 20:30 → ICU 04-12 00:23 → TEL 04-12 22:29 → MS4 04-21 21:53
PROC: 0DB68ZX Excision of Stomach, Via Natural or Artificial Opening Endoscopic, Diagnostic (ICD-10-PCS; principal; 2017-04-19 12:00)
PROC: 0DB78ZX Excision of Stomach, Pylorus, Via Natural or Artificial Opening Endoscopic, Diagnostic (ICD-10-PCS; 2017-04-19 12:00)
PROC: 0DJD8ZZ Inspection of Lower Intestinal Tract, Via Natural or Artificial Opening Endoscopic (ICD-10-PCS; 2017-04-19 12:15)
PROC: 06HM33Z Insertion of Infusion Device into Right Femoral Vein, Percutaneous Approach (ICD-10-PCS; 2017-04-19 12:15)
PROC: 5A1D70Z Performance of Urinary Filtration, Intermittent, Less than 6 Hours Per Day (ICD-10-PCS; 2017-04-19 12:15)
PROC: 02HV33Z Insertion of Infusion Device into Superior Vena Cava, Percutaneous Approach (ICD-10-PCS; 2017-04-19 12:15)
PROC: B543ZZA Ultrasonography of Right Jugular Veins, Guidance (ICD-10-PCS; 2017-04-19 12:15)
PROC: B518ZZA Fluoroscopy of Superior Vena Cava, Guidance (ICD-10-PCS; 2017-04-19 12:15)
PROC: 30233K1 Transfusion of Nonautologous Frozen Plasma into Peripheral Vein, Percutaneous Approach (ICD-10-PCS; 2017-04-19 12:15)
PROC: 30233N1 Transfusion of Nonautologous Red Blood Cells into Peripheral Vein, Percutaneous Approach (ICD-10-PCS; 2017-04-19 12:15)
PROC: 4A00X4Z Measurement of Central Nervous Electrical Activity, External Approach (ICD-10-PCS; 2017-04-19 12:15)
PROC: 4A133R1 Monitoring of Arterial Saturation, Peripheral, Percutaneous Approach (ICD-10-PCS; 2017-04-19 12:15)
DX: I13.2 Hypertensive heart and chronic kidney disease with heart failure and with stage 5 chronic kidney disease, or end stage renal disease (principal); I50.33 Acute on chronic diastolic (congestive) heart failure; J96.91 Respiratory failure, unspecified with hypoxia; I60.9 Nontraumatic subarachnoid hemorrhage, unspecified; A41.1 Sepsis due to other specified staphylococcus; K72.00 Acute and subacute hepatic failure without coma; N17.0 Acute kidney failure with tubular necrosis; G92 Toxic encephalopathy; K55.9 Vascular disorder of intestine, unspecified; N18.6 End stage renal disease; D61.818 Other pancytopenia; R65.21 Severe sepsis with septic shock; K92.1 Melena; N39.0 Urinary tract infection, site not specified; D62 Acute posthemorrhagic anemia; D68.9 Coagulation defect, unspecified; E87.1 Hypo-osmolality and hyponatremia; K61.0 Anal abscess; K26.9 Duodenal ulcer, unspecified as acute or chronic, without hemorrhage or perforation; D63.8 Anemia in other chronic diseases classified elsewhere; E87.6 Hypokalemia; E66.9 Obesity, unspecified; E11.22 Type 2 diabetes mellitus with diabetic chronic kidney disease; K25.9 Gastric ulcer, unspecified as acute or chronic, without hemorrhage or perforation; E11.42 Type 2 diabetes mellitus with diabetic polyneuropathy; K12.31 Oral mucositis (ulcerative) due to antineoplastic therapy; D72.1 Eosinophilia; R56.9 Unspecified convulsions; Z79.4 Long term (current) use of insulin; Z86.718 Personal history of other venous thrombosis and embolism; Z99.2 Dependence on renal dialysis; T45.1X5A Adverse effect of antineoplastic and immunosuppressive drugs, initial encounter
CPT/HCPCS: 36415; 36430; 36600; 70450; 70496; 70551; 71010; 71045; 74018; 74019; 74176; 74177; 80048; 80053; 80202; 81001; 81003; 82140; 82150; 82270; 82550; 82553; 82803; 82962; 83036; 83605; 83690; 83735; 83880; 83970; 84100; 84134; 84478; 84484; 85014; 85018; 85025; 85610; 85730; 86644; 86704; 86709; 86803; 86850; 86900; 86901; 86920; 87040; 87070; 87075; 87081; 87086; 87340; 88305; 88312; 90686; 90935; 93005; 93306; 95819; 96374; 96375; 96376; 97110; 97163; 97530; 99291-25; J1940

== ENCOUNTER 2017-05-23 13:15 | Inpatient (IN) | payer OTHER ==
[2017-05-23 14:52] LABS: ADD MAN DIFF? NO
[2017-05-23 14:58] LABS: INR 1.17; PROTIME 15.1 Sec (11.9-14.9); PT RATIO 1.2
[2017-05-23 14:59] LABS: PARTIAL THROMBOPLASTIN TIME 28.2 Sec (25.0-35.0)
[2017-05-23 15:01] LABS: ANION GAP 11 (8-16); BLOOD UREA NITROGEN 16 mg/dl (7-20); CALCIUM 7.6 mg/dl (8.4-10.2); CARBON DIOXIDE 28 mmol/L (21-31); CHLORIDE 94 mmol/L (97-110); CREATININE 2.82 mg/dl (0.44-1.00); GLUCOSE 142 mg/dl (70-220); POTASSIUM 3.8 mmol/L (3.5-5.1)
[2017-05-23 15:02] LABS: SODIUM 129 mmol/L (135-144)
[2017-05-23 15:13] LABS: ABNORMAL IP MESSAGE 1; HEMATOCRIT 24.7 % (37.0-47.0); HEMOGLOBIN 7.6 g/dl (12.0-16.0); MEAN CORPUSCULAR HGB CONC 30.8 g/dl (32.0-37.0); MEAN CORPUSCULAR VOLUME 91.1 fl (82.0-101.0); MEAN PLATELET VOLUME 10.4 fl (7.4-10.4); PLATELET COUNT 90 10^3/UL (140-415); RED BLOOD COUNT 2.71 10^6/ul (4.20-5.40); RED CELL DISTRIBUTION WIDTH 18.2 % (11.5-14.5)
[2017-05-23 15:13] LABS: WHITE BLOOD COUNT 4.8 10^3/ul (4.8-10.8)
[2017-05-23 15:15] LABS: POSITIVE DIFF @See below
[2017-05-23] MEDS: SOD CHLORIDE 0.9% 500 ML IV (15:30)
[2017-05-23 16:01] LABS: CHLORIDE 94 mmol/L (97-110); POTASSIUM 3.8 mmol/L (3.5-5.1); SODIUM 129 mmol/L (135-144)
[2017-05-23 16:02] LABS: ANION GAP 11 (8-16); BLOOD UREA NITROGEN 16 mg/dl (7-20); CALCIUM 7.6 mg/dl (8.4-10.2); CARBON DIOXIDE 28 mmol/L (21-31); CREATININE 2.82 mg/dl (0.44-1.00); GLUCOSE 142 mg/dl (70-220)
[2017-05-23 16:11] LABS: ALANINE AMINOTRANSFERASE 24 IU/L (13-69); ALBUMIN 2.2 g/dl (3.3-4.9); ALBUMIN/GLOBULIN RATIO 0.64; ALKALINE PHOSPHATASE 72 IU/L (42-121); ASPARTATE AMINO TRANSFERASE 20 IU/L (15-46); TOTAL PROTEIN 5.6 g/dl (6.1-8.1)
[2017-05-23 16:22] LABS: BAND NEUTROPHILS #M 0.3 10^3/ul (0.0-0.6); BAND NEUTROPHILS % (M) 8 % (0-4); EOSINOPHILS # 0.2 10^3/ul (0.0-0.5); EOSINOPHILS % (M) 5 % (0.0-7.0); HYPOCHROMASIA 2+ (0-0); LYMPHOCYTES # 1.1 10^3/ul (0.8-2.9); LYMPHOCYTES #M 1.1 10^3/ul (0.8-2.9); LYMPHOCYTES % (M) 23 % (15-51); MONOCYTE # 0.3 10^3/ul (0.3-0.9); MONOCYTE #M 0.2 10^3/ul (0.3-0.9); MONOCYTES % (M) 6 % (0-11); SEG NEUT #M 2.8 10^3/ul (1.7-7.5); SEGMENTED NEUTROPHILS (M) % 57 % (39-77)
[2017-05-23] MEDS ORDERED: ACETAMINOPHEN 325 MG TAB PO (20:00)
[2017-05-23] MEDS ORDERED: ONDANSETRON 4 MG INJ IV (20:00)
[2017-05-24 00:27] LABS: AHG CROSSMATCH 1 2
[2017-05-24] MEDS ORDERED: PENDING SANTYL ORDER FOR WOUND CARE XX (01:30)
[2017-05-24] MEDS: ACCU-CHEK XX (02:00)
[2017-05-24] MEDS ORDERED: GLUCAGON 1 MG INJ IM (02:30)
[2017-05-24] MEDS ORDERED: GLUCOSE GEL 15 GRAM TUBE BUCCAL (02:30)
[2017-05-24] MEDS ORDERED: GLUCOSE GEL 15 GRAM TUBE PO (02:30)
[2017-05-24] MEDS ORDERED: LEVETIRACETAM 500 MG TAB PO (05:30)
[2017-05-24] MEDS ORDERED: DOCUSATE SODIUM 100 MG CAP PO (05:30)
[2017-05-24] MEDS ORDERED: VANCOMYCIN IV PER PHARMACY XX (05:30)
[2017-05-24] MEDS: SOD CHLORIDE 0.9% 1,000 ML IV ×2 (05:47→19:15)
[2017-05-24] MEDS: PANTOPRAZOLE (EC) 40 MG TAB PO ×2 (05:47→18:59)
[2017-05-24 06:55] LABS: WHITE BLOOD COUNT 3.6 10^3/ul (4.8-10.8)
[2017-05-24 06:55] LABS: ABNORMAL IP MESSAGE 1; HEMATOCRIT 33.1 % (37.0-47.0); HEMOGLOBIN 10.8 g/dl (12.0-16.0); MEAN CORPUSCULAR HEMOGLOBIN 28.1 pg (29.0-33.0); MEAN CORPUSCULAR HGB CONC 32.6 g/dl (32.0-37.0); MEAN PLATELET VOLUME 9.6 fl (7.4-10.4); PLATELET COUNT 71 10^3/UL (140-415); RED BLOOD COUNT 3.85 10^6/ul (4.20-5.40); RED CELL DISTRIBUTION WIDTH 17.7 % (11.5-14.5)
[2017-05-24 07:01] LABS: POSITIVE DIFF @See below
[2017-05-24 07:02] LABS: ADD MAN DIFF? YES
[2017-05-24 07:18] LABS: IRON 60 ug/dl (35-150)
[2017-05-24 07:19] LABS: ALANINE AMINOTRANSFERASE 25 IU/L (13-69); ALBUMIN 2.2 g/dl (3.3-4.9); ALBUMIN/GLOBULIN RATIO 0.62; ALKALINE PHOSPHATASE 65 IU/L (42-121); ANION GAP 11 (8-16); ASPARTATE AMINO TRANSFERASE 21 IU/L (15-46); BILIRUBIN,INDIRECT 0.9 mg/dl (0-1.1); BILIRUBIN,TOTAL 0.9 mg/dl (0.2-1.3); BLOOD UREA NITROGEN 17 mg/dl (7-20); CALCIUM 7.5 mg/dl (8.4-10.2); CARBON DIOXIDE 26 mmol/L (21-31); CHLORIDE 97 mmol/L (97-110); CREATININE 2.91 mg/dl (0.44-1.00); GLUCOSE 90 mg/dl (70-220); POTASSIUM 3.9 mmol/L (3.5-5.1); SODIUM 130 mmol/L (135-144); TOTAL PROTEIN 5.7 g/dl (6.1-8.1)
[2017-05-24 07:27] LABS: % IRON SATURATION 52 % SAT (22-52); TOTAL IRON BINDING CAPACITY 115 ug/dl (241-421)
[2017-05-24] MEDS: INSULIN ASPART [NOVOLOG] 3 ML PEN SC ×4 (07:50→21:00)
[2017-05-24] MEDS ORDERED: INSULIN ASPART [NOVOLOG] 3 ML PEN SC (07:50)
[2017-05-24 08:19] LABS: SODIUM,URINE RANDOM 23 mmol/L (30-90)
[2017-05-24 08:47] LABS: OSMOLALITY 273 mOsm/kg (280-295)
[2017-05-24 08:50] LABS: ANISOCYTOSIS 1+ (0-0); BAND NEUTROPHILS #M 0.3 10^3/ul (0.0-0.6); BAND NEUTROPHILS % (M) 9 % (0-4); BURR CELLS 1+ (0-0); EOSINOPHILS % (M) 4 % (0-7); GIANT THROMBO% (M) 1 % (0-0); LYMPHOCYTES #M 0.7 10^3/ul (0.8-2.9); LYMPHOCYTES % (M) 21 % (15-51); MICROCYTOSIS 1+ (0-0); MONOCYTE #M 0.4 10^3/ul (0.3-0.9); MONOCYTES % (M) 12 % (0-11); PLATELET ESTIMATE DECREASED; POIKILOCYTOSIS 1+ (0-0); POLYCHROMASIA 3+ (0-0); REACTIVE LYMPHOCYTES% (M) 2 % (0-0); SEG NEUT #M 1.9 10^3/ul (1.6-7.5); SEGMENTED NEUTROPHILS (M) % 52 % (39-77); SMUDGE%M 37 % (0-0)
[2017-05-24 08:53] LABS: OSMOLALITY,URINE 118 mOsm/kg (250-1200)
[2017-05-24] MEDS: LEVETIRACETAM 500 MG TAB PO ×2 (08:57→21:00)
[2017-05-24] MEDS: LOSARTAN 50 MG TAB PO ×2 (08:57→21:01)
[2017-05-24] MEDS: ASCORBIC ACID 500 MG TAB PO (08:57)
[2017-05-24] MEDS: VANCOMYCIN 1.25 GM in SOD CHLORIDE 0.45% 250 ML IVPB (08:58)
[2017-05-24] MEDS: BISOPROLOL 5 MG TAB PO (08:58)
[2017-05-24] MEDS: DOCUSATE SODIUM 100 MG CAP PO ×2 (08:58→21:00)
[2017-05-24] MEDS: COLLAGENASE 30 GM TUBE TOP (09:01)
[2017-05-24] MEDS: DICYCLOMINE 10 MG CAP PO ×2 (13:31→21:00)
[2017-05-24] MEDS: CALCIUM CARBONATE 1.25 GM TAB PO ×2 (13:33→21:00)
[2017-05-25] MEDS: ACCU-CHEK XX (02:00)
[2017-05-25 03:12] LABS: ADD MAN DIFF? NO
[2017-05-25 03:23] LABS: ABNORMAL IP MESSAGE 1; BASOPHILS % 0.7 % (0.0-2.0); EOSINOPHILS # 0.2 10^3/ul (0.0-0.5); HEMATOCRIT 41.4 % (37.0-47.0); HEMOGLOBIN 13.5 g/dl (12.0-16.0); LYMPHOCYTES # 1.4 10^3/ul (0.8-2.9); LYMPHOCYTES % 32.5 % (15.0-51.0); MEAN CORPUSCULAR HEMOGLOBIN 27.8 pg (29.0-33.0); MEAN CORPUSCULAR HGB CONC 32.6 g/dl (32.0-37.0); MEAN CORPUSCULAR VOLUME 85.2 fl (82.0-101.0); MEAN PLATELET VOLUME 11.8 fl (7.4-10.4); MONOCYTE # 0.4 10^3/ul (0.3-0.9); MONOCYTES % 8.7 % (0.0-11.0); NEUTROPHIL # 2.2 10^3/ul (1.6-7.5); NEUTROPHILS % 52.6 % (39.0-77.0); PLATELET COUNT 79 10^3/UL (140-415); RED BLOOD COUNT 4.86 10^6/ul (4.20-5.40); RED CELL DISTRIBUTION WIDTH 18.3 % (11.5-14.5)
[2017-05-25 03:23] LABS: WHITE BLOOD COUNT 4.2 10^3/ul (4.8-10.8)
[2017-05-25 03:29] LABS: POSITIVE DIFF @See below
[2017-05-25 03:44] LABS: ALANINE AMINOTRANSFERASE 21 IU/L (13-69); ALBUMIN 3.1 g/dl (3.3-4.9); ALKALINE PHOSPHATASE 121 IU/L (42-121); ANION GAP 11 (8-16); ASPARTATE AMINO TRANSFERASE 29 IU/L (15-46); CALCIUM 6.6 mg/dl (8.4-10.2); CARBON DIOXIDE 32 mmol/L (21-31); CHLORIDE 99 mmol/L (97-110); CREATININE 0.46 mg/dl (0.44-1.00); GLUCOSE 104 mg/dl (70-220); SODIUM 140 mmol/L (135-144); TOTAL PROTEIN 7.5 g/dl (6.1-8.1)
[2017-05-25 04:11] LABS: BLOOD UREA NITROGEN < 2 mg/dl (7-20)
[2017-05-25 04:13] LABS: POTASSIUM 1.8 mmol/L (3.5-5.1)
[2017-05-25 04:32] LABS: HEPATITIS B SURFACE ANTIBODY NEGATIVE (NEGATIVE)
[2017-05-25] MEDS: PANTOPRAZOLE (EC) 40 MG TAB PO ×2 (05:49→18:11)
[2017-05-25] MEDS: POTASSIUM CHLORIDE 50 ML IVPB (06:15)
[2017-05-25 06:56] LABS: OCCULT BLOOD STOOL NEGATIVE (NEGATIVE)
[2017-05-25] MEDS: INSULIN ASPART [NOVOLOG] 3 ML PEN SC ×4 (07:50→20:50)
[2017-05-25] MEDS: DICYCLOMINE 10 MG CAP PO ×2 (09:00→20:50)
[2017-05-25] MEDS: CALCIUM CARBONATE 1.25 GM TAB PO ×2 (09:00→20:50)
[2017-05-25] MEDS: DOCUSATE SODIUM 100 MG CAP PO ×2 (09:00→20:50)
[2017-05-25] MEDS: ASCORBIC ACID 500 MG TAB PO (09:00)
[2017-05-25] MEDS: LEVETIRACETAM 500 MG TAB PO ×2 (09:23→20:49)
[2017-05-25] MEDS: LOSARTAN 50 MG TAB PO ×2 (09:23→20:50)
[2017-05-25] MEDS: POTASSIUM CHLORIDE (SR) 10 MEQ TAB PO (09:24)
[2017-05-25] MEDS: BISOPROLOL 5 MG TAB PO (09:31)
[2017-05-25] MEDS: COLLAGENASE 30 GM TUBE TOP (09:32)
[2017-05-25 10:14] LABS: ANION GAP 10 (8-16); BLOOD UREA NITROGEN 14 mg/dl (7-20); CALCIUM 6.9 mg/dl (8.4-10.2); CARBON DIOXIDE 25 mmol/L (21-31); CHLORIDE 102 mmol/L (97-110); GLUCOSE 90 mg/dl (70-220); SODIUM 133 mmol/L (135-144)
[2017-05-25] MEDS: PHENOL 1.4% SOLN 180 ML BTL MT (18:11)
[2017-05-26] MEDS: LORAZEPAM 0.5 MG TAB PO (01:04)
[2017-05-26] MEDS: PHENOL 1.4% SOLN 180 ML BTL MT (01:31)
[2017-05-26] MEDS: HYDROCODONE/HOMATROPINE 5ML CUP PO (01:31)
[2017-05-26] MEDS: ACCU-CHEK XX (02:00)
[2017-05-26] MEDS: PANTOPRAZOLE (EC) 40 MG TAB PO ×2 (05:50→17:21)
[2017-05-26 06:36] LABS: ALANINE AMINOTRANSFERASE 23 IU/L (13-69); ALBUMIN 2.8 g/dl (3.3-4.9); ALBUMIN/GLOBULIN RATIO 0.65; ALKALINE PHOSPHATASE 109 IU/L (42-121); ANION GAP 16 (8-16); ASPARTATE AMINO TRANSFERASE 29 IU/L (15-46); BILIRUBIN,INDIRECT 0.5 mg/dl (0-1.1); BILIRUBIN,TOTAL 0.5 mg/dl (0.2-1.3); BLOOD UREA NITROGEN 18 mg/dl (7-20); CALCIUM 7.4 mg/dl (8.4-10.2); CARBON DIOXIDE 24 mmol/L (21-31); CHLORIDE 101 mmol/L (97-110); CREATININE 2.47 mg/dl (0.44-1.00); GLUCOSE 138 mg/dl (70-220); SODIUM 136 mmol/L (135-144); TOTAL PROTEIN 7.1 g/dl (6.1-8.1)
[2017-05-26 06:44] LABS: VANCOMYCIN,RANDOM 13.7 ug/ml
[2017-05-26] MEDS: INSULIN ASPART [NOVOLOG] 3 ML PEN SC ×4 (07:50→20:24)
[2017-05-26] MEDS: CALCIUM CARBONATE 1.25 GM TAB PO ×2 (09:00→20:23)
[2017-05-26] MEDS: DOCUSATE SODIUM 100 MG CAP PO ×2 (09:00→20:23)
[2017-05-26] MEDS: ASCORBIC ACID 500 MG TAB PO (09:00)
[2017-05-26] MEDS: BISOPROLOL 5 MG TAB PO (09:43)
[2017-05-26] MEDS: DICYCLOMINE 10 MG CAP PO ×2 (09:43→20:29)
[2017-05-26] MEDS: LOSARTAN 50 MG TAB PO ×2 (09:44→20:25)
[2017-05-26] MEDS: LEVETIRACETAM 500 MG TAB PO ×2 (09:44→20:23)
[2017-05-26] MEDS: COLLAGENASE 30 GM TUBE TOP (09:44)
[2017-05-26] MEDS ORDERED: VANCOMYCIN IV PER PHARMACY XX (15:30)
[2017-05-26] MEDS: CEFTRIAXONE 1 GM/50 ML (PMX) 50 ML IVPB (15:34)
[2017-05-26 15:55] LABS: AADO2 Arterial 80.9 mmHg (7.0-24.0); Allen Test ACCEPTAB; Arterial Base Excess 1.6 mmol/L (-3.0-3); Arterial Blood Gas Oxygen Sat 92.4 mmHG (95.0-98.0); Arterial Fraction of Oxyhgb 91.3 % (93.0-99.0); Arterial HCO3 25.9 mmol/L (22.0-26.0); Arterial MetHb 0.2 % (0.0-1.5); Arterial Total Hemglobin 11.3 g/dl (12.0-18.0); Arterial pCO2 39.6 mmhg (35-45); MODE NASAL CANNULA; Site Right Radial
[2017-05-26] MEDS: VANCOMYCIN 1 GM 250 ML IVPB (16:36)
[2017-05-26] MEDS: PEG/ELECTROLYTES 4L BTL PO (17:21)
[2017-05-26] MEDS: ACETAMINOPHEN 325 MG TAB PO (17:21)
[2017-05-26] MEDS: BISACODYL (EC) 5 MG TAB PO ×2 (17:21→20:23)
[2017-05-27] MEDS: DEXTROSE 5%-0.45% NACL 1,000 ML IV
[2017-05-27] MEDS: ACCU-CHEK XX (00:03)
[2017-05-27] MEDS: VANCOMYCIN 1 GM (PMX) 250 ML IVPB (05:45)
[2017-05-27 05:58] LABS: WHITE BLOOD COUNT 2.2 10^3/ul (4.8-10.8)
[2017-05-27 05:58] LABS: ABNORMAL IP MESSAGE 1; HEMATOCRIT 30.7 % (37.0-47.0); HEMOGLOBIN 9.6 g/dl (12.0-16.0); MEAN CORPUSCULAR HEMOGLOBIN 27.7 pg (29.0-33.0); MEAN CORPUSCULAR HGB CONC 31.3 g/dl (32.0-37.0); MEAN CORPUSCULAR VOLUME 88.7 fl (82.0-101.0); MEAN PLATELET VOLUME 11.3 fl (7.4-10.4); PLATELET COUNT 51 10^3/UL (140-415); RED BLOOD COUNT 3.46 10^6/ul (4.20-5.40); RED CELL DISTRIBUTION WIDTH 17.2 % (11.5-14.5)
[2017-05-27] MEDS: PANTOPRAZOLE (EC) 40 MG TAB PO ×2 (06:00→17:41)
[2017-05-27 06:04] LABS: INR 1.41; PROTIME 17.5 Sec (11.9-14.9); PT RATIO 1.4
[2017-05-27 06:05] LABS: PARTIAL THROMBOPLASTIN TIME 32.1 Sec (25.0-35.0)
[2017-05-27 06:14] LABS: LACTIC ACID 1.3 mmol/L (0.5-2.0)
[2017-05-27 06:14] LABS: ALANINE AMINOTRANSFERASE 29 IU/L (13-69); ALBUMIN 2.2 g/dl (3.3-4.9); ALBUMIN/GLOBULIN RATIO 0.66; ALKALINE PHOSPHATASE 129 IU/L (42-121); ANION GAP 12 (8-16); ASPARTATE AMINO TRANSFERASE 52 IU/L (15-46); BLOOD UREA NITROGEN 22 mg/dl (7-20); CALCIUM 7.2 mg/dl (8.4-10.2); CARBON DIOXIDE 25 mmol/L (21-31); CHLORIDE 103 mmol/L (97-110); CREATININE 2.98 mg/dl (0.44-1.00); GLUCOSE 131 mg/dl (70-220); POTASSIUM 4.8 mmol/L (3.5-5.1); SODIUM 135 mmol/L (135-144); TOTAL PROTEIN 5.5 g/dl (6.1-8.1)
[2017-05-27 06:18] LABS: ADD MAN DIFF? YES; POSITIVE DIFF @See below
[2017-05-27 06:38] LABS: MAGNESIUM 1.6 mg/dl (1.7-2.5)
[2017-05-27 06:38] LABS: PHOSPHORUS 4.6 mg/dl (2.5-4.9)
[2017-05-27] MEDS ORDERED: TOBRAMYCIN IVPB (08:00)
[2017-05-27] MEDS ORDERED: TOBRAMYCIN IV PER PHARMACY XX (08:00)
[2017-05-27] MEDS ORDERED: SOD CHLORIDE 0.9% IVPB (08:00)
[2017-05-27] MEDS ORDERED: TOBRAMYCIN 100 MG in DEXTROSE 5% 100 ML IVPB (08:00)
[2017-05-27] MEDS: LEVETIRACETAM 500 MG TAB PO ×2 (09:00→21:00)
[2017-05-27] MEDS: BISOPROLOL 5 MG TAB PO (09:00)
[2017-05-27] MEDS ORDERED: ENOXAPARIN 30 MG/0.3 ML SYG SC (09:00)
[2017-05-27] MEDS: LOSARTAN 50 MG TAB PO ×2 (09:00→21:00)
[2017-05-27] MEDS: DICYCLOMINE 10 MG CAP PO ×2 (09:00→21:00)
[2017-05-27] MEDS: ASCORBIC ACID 500 MG TAB PO (09:00)
[2017-05-27] MEDS: CALCIUM CARBONATE 1.25 GM TAB PO ×2 (09:00→21:00)
[2017-05-27] MEDS: DOCUSATE SODIUM 100 MG CAP PO ×2 (09:00→21:00)
[2017-05-27 09:25] LABS: ANISOCYTOSIS 1+ (0-0); BAND NEUTROPHILS #M 0.5 10^3/ul (0.0-0.6); BAND NEUTROPHILS % (M) 25 % (0-4); BASOPHILS % (M) 1 % (0-2); EOSINOPHILS % (M) 3 % (0-7); ERYTHROBLAST% (NRBC) (M) 1 % (0-0); GIANT THROMBO% (M) 4 % (0-0); LYMPHOCYTES #M 0.5 10^3/ul (0.8-2.9); LYMPHOCYTES % (M) 25 % (15-51); MONOCYTE #M 0.3 10^3/ul (0.3-0.9); MONOCYTES % (M) 16 % (0-11); MYELOCYTES % (M) 1 % (0-0); PLATELET ESTIMATE SIG DECREASED; POLYCHROMASIA 2+ (0-0); REACTIVE LYMPHOCYTES% (M) 1 % (0-0); SEG NEUT #M 0.6 10^3/ul (1.6-7.5); SEGMENTED NEUTROPHILS (M) % 28 % (39-77); SMUDGE%M 59 % (0-0)
[2017-05-27 10:41] LABS: ADD UMIC YES; UR ASCORBIC ACID NEGATIVE (NEGATIVE); UR BILIRUBIN (Dip) NEGATIVE (NEGATIVE); UR BLOOD (Dip) 1+ mg/dL (NEGATIVE); UR BUDDING YEAST MANY /HPF (NONE SEEN); UR CLARITY CLOUDY (CLEAR); UR COLOR YELLOW (YELLOW); UR GLUCOSE (Dip) 1+ mg/dL (NEGATIVE); UR KETONES (Dip) TRACE mg/dL (NEGATIVE); UR LEUKOCYTE ESTERASE (Dip) NEGATIVE Leu/ul (NEGATIVE); UR NITRITE (Dip) NEGATIVE (NEGATIVE); UR RBC 85 /HPF (0-5); UR SPECIFIC GRAVITY (Dip) 1.015 (1.003-1.030); UR TOTAL PROTEIN (Dip) 3+ mg/dl (NEGATIVE); UR UROBILINOGEN (Dip) NEGATIVE (NEGATIVE); UR WBC 7 /HPF (0-5)
[2017-05-27] MEDS: INSULIN ASPART [NOVOLOG] 3 ML PEN SC ×3 (11:30→21:00)
[2017-05-27] MEDS: TOBRAMYCIN 100 MG in DEXTROSE 5% 100 ML IVPB (11:43)
[2017-05-27] MEDS: CEFEPIME 1GM/50 ML (PMX) 50 ML IVPB (11:43)
[2017-05-27] MEDS: COLLAGENASE 30 GM TUBE TOP (11:48)
[2017-05-27 16:01] LABS: PROTIME 18.4 Sec (11.9-14.9); PT RATIO 1.4
[2017-05-27 16:02] LABS: LACTATE DEHYDROGENASE 516 IU/L (313-618); PLATELET COUNT 43 10^3/UL (140-415)
[2017-05-27 16:02] LABS: THROMBIN TIME 20.3 SEC (13.8-19.1)
[2017-05-27 16:04] LABS: D-DIMER 2528.92 ng/ml (<460)
[2017-05-27 16:30] LABS: FIBRIN SPLIT PRODUCT >10 and <40 ug/ml (<10)
[2017-05-27] MEDS ORDERED: SOD CHLORIDE 0.9% 1,000 ML IV (18:39)
[2017-05-28] MEDS: HEPARIN 1000 UNITS/ML 10 ML INJ CATHETER (00:27)
[2017-05-28] MEDS: ACCU-CHEK XX (01:56)
[2017-05-28] MEDS: DEXTROSE 5%-0.45% NACL 1,000 ML IV (02:54)
[2017-05-28] MEDS: PANTOPRAZOLE (EC) 40 MG TAB PO ×2 (06:00→17:53)
[2017-05-28] MEDS: ACETAMINOPHEN 325 MG TAB PO (06:11)
[2017-05-28] MEDS ORDERED: ACETAMINOPHEN 1000MG/100ML IV 100 ML IVPB (06:30)
[2017-05-28] MEDS: INSULIN ASPART [NOVOLOG] 3 ML PEN SC ×4 (08:00→20:12)
[2017-05-28 08:24] LABS: ABNORMAL IP MESSAGE 1; HEMATOCRIT 27.5 % (37.0-47.0); HEMOGLOBIN 8.6 g/dl (12.0-16.0); MEAN CORPUSCULAR HEMOGLOBIN 27.7 pg (29.0-33.0); MEAN CORPUSCULAR HGB CONC 31.3 g/dl (32.0-37.0); MEAN CORPUSCULAR VOLUME 88.4 fl (82.0-101.0); MEAN PLATELET VOLUME 10.7 fl (7.4-10.4); PLATELET COUNT 44 10^3/UL (140-415); RED BLOOD COUNT 3.11 10^6/ul (4.20-5.40); RED CELL DISTRIBUTION WIDTH 17.5 % (11.5-14.5)
[2017-05-28 08:24] LABS: WHITE BLOOD COUNT 5.7 10^3/ul (4.8-10.8)
[2017-05-28 08:36] LABS: POSITIVE DIFF @See below
[2017-05-28 08:42] LABS: ADD MAN DIFF? YES
[2017-05-28 08:47] LABS: ANION GAP 7 (8-16); BLOOD UREA NITROGEN 15 mg/dl (7-20); CALCIUM 7.4 mg/dl (8.4-10.2); CARBON DIOXIDE 29 mmol/L (21-31); CHLORIDE 104 mmol/L (97-110); CREATININE 2.06 mg/dl (0.44-1.00); GLUCOSE 110 mg/dl (70-220); POTASSIUM 3.6 mmol/L (3.5-5.1); SODIUM 136 mmol/L (135-144)
[2017-05-28] MEDS: DOCUSATE SODIUM 100 MG CAP PO ×2 (09:00→20:08)
[2017-05-28] MEDS: BISOPROLOL 5 MG TAB PO (09:00)
[2017-05-28] MEDS: LOSARTAN 50 MG TAB PO ×2 (09:00→20:08)
[2017-05-28] MEDS: LEVETIRACETAM 500 MG TAB PO ×2 (09:35→20:08)
[2017-05-28] MEDS: CALCIUM CARBONATE 1.25 GM TAB PO ×2 (09:35→20:08)
[2017-05-28] MEDS: ASCORBIC ACID 500 MG TAB PO (09:35)
[2017-05-28] MEDS: DICYCLOMINE 10 MG CAP PO ×2 (09:35→20:08)
[2017-05-28 09:38] LABS: MAGNESIUM 1.6 mg/dl (1.7-2.5)
[2017-05-28 09:38] LABS: PHOSPHORUS 3.2 mg/dl (2.5-4.9)
[2017-05-28] MEDS: COLLAGENASE 30 GM TUBE TOP (09:50)
[2017-05-28] MEDS: CEFEPIME 1GM/50 ML (PMX) 50 ML IVPB (10:15)
[2017-05-28 10:28] LABS: ANISOCYTOSIS 1+ (0-0); BAND NEUTROPHILS % (M) 53 % (0-4); BURR CELLS 1+ (0-0); GIANT THROMBO% (M) 1 % (0-0); LYMPHOCYTES #M 0.3 10^3/ul (0.8-2.9); LYMPHOCYTES % (M) 6 % (15-51); MICROCYTOSIS 1+ (0-0); MONOCYTE #M 0.5 10^3/ul (0.3-0.9); MONOCYTES % (M) 9 % (0-11); PLATELET ESTIMATE DECREASED; POIKILOCYTOSIS 1+ (0-0); POLYCHROMASIA 2+ (0-0); SEGMENTED NEUTROPHILS (M) % 32 % (39-77); SMUDGE%M 55 % (0-0)
[2017-05-28] MEDS: TOBRAMYCIN 80 MG in SOD CHLORIDE 0.9% 50 ML IVPB (12:34)
[2017-05-28 20:01] LABS: OCCULT BLOOD STOOL NEGATIVE (NEGATIVE)
[2017-05-29] MEDS: ACCU-CHEK XX (01:29)
[2017-05-29] MEDS: PANTOPRAZOLE (EC) 40 MG TAB PO ×2 (06:00→17:15)
[2017-05-29] MEDS: DEXTROSE 5%-0.45% NACL 1,000 ML IV ×2 (06:29)
[2017-05-29] MEDS: INSULIN ASPART [NOVOLOG] 3 ML PEN SC ×4 (08:00→20:48)
[2017-05-29 09:40] LABS: ADD MAN DIFF? NO
[2017-05-29 09:45] LABS: ABNORMAL IP MESSAGE 1; BASOPHILS % 0.3 % (0.0-2.0); EOSINOPHILS # 0.2 10^3/ul (0.0-0.5); EOSINOPHILS % 2.6 % (0.0-7.0); HEMATOCRIT 31.3 % (37.0-47.0); HEMOGLOBIN 9.5 g/dl (12.0-16.0); LYMPHOCYTES # 1.9 10^3/ul (0.8-2.9); LYMPHOCYTES % 27.6 % (15.0-51.0); MEAN CORPUSCULAR HEMOGLOBIN 27.4 pg (29.0-33.0); MEAN CORPUSCULAR HGB CONC 30.4 g/dl (32.0-37.0); MEAN CORPUSCULAR VOLUME 90.2 fl (82.0-101.0); MEAN PLATELET VOLUME 11.6 fl (7.4-10.4); MONOCYTE # 0.8 10^3/ul (0.3-0.9); NEUTROPHILS % 57.5 % (39.0-77.0); RED BLOOD COUNT 3.47 10^6/ul (4.20-5.40)
[2017-05-29 09:45] LABS: WHITE BLOOD COUNT 6.9 10^3/ul (4.8-10.8)
[2017-05-29 09:55] LABS: PLATELET COUNT 55 10^3/UL (140-415); POSITIVE DIFF @See below
[2017-05-29] MEDS: CEFEPIME 1GM/50 ML (PMX) 50 ML IVPB (13:08)
[2017-05-29] MEDS: BISOPROLOL 5 MG TAB PO (13:09)
[2017-05-29] MEDS: ASCORBIC ACID 500 MG TAB PO (13:10)
[2017-05-29] MEDS: DOCUSATE SODIUM 100 MG CAP PO ×2 (13:10→20:39)
[2017-05-29] MEDS: DICYCLOMINE 10 MG CAP PO ×2 (13:10→20:39)
[2017-05-29] MEDS: CALCIUM CARBONATE 1.25 GM TAB PO ×2 (13:10→20:39)
[2017-05-29] MEDS: COLLAGENASE 30 GM TUBE TOP (13:10)
[2017-05-29] MEDS: LOSARTAN 50 MG TAB PO ×2 (13:10→20:40)
[2017-05-29] MEDS: LEVETIRACETAM 500 MG TAB PO ×2 (13:10→20:39)
[2017-05-29] MEDS: PEG/ELECTROLYTES 4L BTL PO (19:40)
[2017-05-29] MEDS: BISACODYL (EC) 5 MG TAB PO (20:39)
[2017-05-30] MEDS: ACCU-CHEK XX (02:39)
[2017-05-30 05:03] LABS: ANION GAP 7 (8-16); BLOOD UREA NITROGEN 12 mg/dl (7-20); CALCIUM 7.1 mg/dl (8.4-10.2); CARBON DIOXIDE 27 mmol/L (21-31); CHLORIDE 104 mmol/L (97-110); CREATININE 1.86 mg/dl (0.44-1.00); GLUCOSE 121 mg/dl (70-220); POTASSIUM 3.8 mmol/L (3.5-5.1); SODIUM 134 mmol/L (135-144)
[2017-05-30 05:12] LABS: INR 1.09; PARTIAL THROMBOPLASTIN TIME 30.4 Sec (25.0-35.0); PROTIME 14.2 Sec (11.9-14.9); PT RATIO 1.1
[2017-05-30] MEDS: PANTOPRAZOLE (EC) 40 MG TAB PO ×2 (05:36→17:11)
[2017-05-30 07:56] LABS: WHITE BLOOD COUNT 9.9 10^3/ul (4.8-10.8)
[2017-05-30 07:56] LABS: ABNORMAL IP MESSAGE 1; HEMOGLOBIN 9.8 g/dl (12.0-16.0); MEAN CORPUSCULAR HEMOGLOBIN 28.2 pg (29.0-33.0); MEAN CORPUSCULAR HGB CONC 31.6 g/dl (32.0-37.0); MEAN CORPUSCULAR VOLUME 89.3 fl (82.0-101.0); MEAN PLATELET VOLUME 11.2 fl (7.4-10.4); RED BLOOD COUNT 3.47 10^6/ul (4.20-5.40); RED CELL DISTRIBUTION WIDTH 17.8 % (11.5-14.5)
[2017-05-30 07:57] LABS: ADD MAN DIFF? YES; PLATELET COUNT 68 10^3/UL (140-415); POSITIVE DIFF @See below
[2017-05-30] MEDS: INSULIN ASPART [NOVOLOG] 3 ML PEN SC ×4 (08:00→20:49)
[2017-05-30 08:42] LABS: ANISOCYTOSIS 1+ (0-0); BAND NEUTROPHILS #M 2.1 10^3/ul (0.0-0.6); BAND NEUTROPHILS % (M) 22 % (0-4); EOSINOPHILS % (M) 1 % (0-7); LYMPHOCYTES #M 1.4 10^3/ul (0.8-2.9); LYMPHOCYTES % (M) 15 % (15-51); MICROCYTOSIS 1+ (0-0); MONOCYTE #M 0.6 10^3/ul (0.3-0.9); MONOCYTES % (M) 7 % (0-11); PLATELET ESTIMATE SIG DECREASED; POLYCHROMASIA 2+ (0-0); REACTIVE LYMPHOCYTES% (M) 1 % (0-0); SEG NEUT #M 5.6 10^3/ul (1.6-7.5); SEGMENTED NEUTROPHILS (M) % 54 % (39-77); SMUDGE%M 16 % (0-0); SPHEROCYTES 1+ (0-0)
[2017-05-30] MEDS: CALCIUM CARBONATE 1.25 GM TAB PO ×2 (09:00→20:43)
[2017-05-30] MEDS: LEVETIRACETAM 500 MG TAB PO ×2 (09:00→20:43)
[2017-05-30] MEDS: DICYCLOMINE 10 MG CAP PO ×2 (09:00→20:43)
[2017-05-30] MEDS: COLLAGENASE 30 GM TUBE TOP (09:00)
[2017-05-30] MEDS: DOCUSATE SODIUM 100 MG CAP PO (09:00)
[2017-05-30] MEDS: BISOPROLOL 5 MG TAB PO (09:00)
[2017-05-30] MEDS: LOSARTAN 50 MG TAB PO ×2 (09:00→20:43)
[2017-05-30] MEDS: ASCORBIC ACID 500 MG TAB PO (09:00)
[2017-05-30] MEDS: DEXTROSE 5%-0.45% NACL 1,000 ML IV (11:08)
[2017-05-30] MEDS: ALBUTEROL/IPRATROPIUM (NEB) 3 ML AMP HHN ×2 (13:37→21:00)
[2017-05-30 13:43] LABS: HEPARIN INDUCED PLATELET AB NEGATIVE (NEGATIVE)
[2017-05-30] MEDS ORDERED: LEVALBUTEROL (NEB) 0.63 MG/3 ML AMP HHN (15:00)
[2017-05-30] MEDS ORDERED: SODIUM CHLORIDE 0.9% 1L BAG IV (15:30)
[2017-05-31] MEDS: ALBUTEROL/IPRATROPIUM (NEB) 3 ML AMP HHN ×4 (01:10→19:21)
[2017-05-31] MEDS: ACCU-CHEK XX (02:00)
[2017-05-31] MEDS: PANTOPRAZOLE (EC) 40 MG TAB PO ×2 (05:50→17:28)
[2017-05-31 07:35] LABS: VANCOMYCIN,RANDOM 14.2 ug/ml
[2017-05-31] MEDS: INSULIN ASPART [NOVOLOG] 3 ML PEN SC ×4 (07:39→20:17)
[2017-05-31] MEDS: COLLAGENASE 30 GM TUBE TOP (09:00)
[2017-05-31] MEDS: BISOPROLOL 5 MG TAB PO (11:00)
[2017-05-31] MEDS: ALBUMIN HUMAN 25% 50 ML IV (11:13)
[2017-05-31] MEDS: SOD CHLORIDE 0.9% 500 ML IV (11:14)
[2017-05-31] MEDS: HEPARIN 1000 UNITS/ML 10 ML INJ CATHETER (12:47)
[2017-05-31] MEDS: VANCOMYCIN 1 GM 250 ML IVPB (13:23)
[2017-05-31] MEDS: CALCIUM CARBONATE 1.25 GM TAB PO ×2 (13:23→20:22)
[2017-05-31] MEDS: ASCORBIC ACID 500 MG TAB PO (13:23)
[2017-05-31] MEDS: DICYCLOMINE 10 MG CAP PO ×2 (13:24→20:22)
[2017-05-31] MEDS: LEVETIRACETAM 500 MG TAB PO ×2 (13:24→20:22)
[2017-05-31] MEDS: ACETAMINOPHEN 325 MG TAB PO (20:22)
[2017-05-31] MEDS: CASPOFUNGIN 70 MG in SOD CHLORIDE 0.9% 250 ML IVPB (22:22)
[2017-06-01] MEDS: ALBUTEROL/IPRATROPIUM (NEB) 3 ML AMP HHN ×4 (01:03→21:10)
[2017-06-01] MEDS: ACCU-CHEK XX (02:00)
[2017-06-01] MEDS: PANTOPRAZOLE (EC) 40 MG TAB PO ×2 (06:01→17:37)
[2017-06-01] MEDS: INSULIN ASPART [NOVOLOG] 3 ML PEN SC ×4 (08:00→21:00)
[2017-06-01] MEDS: ASCORBIC ACID 500 MG TAB PO (08:32)
[2017-06-01] MEDS: LEVETIRACETAM 500 MG TAB PO ×2 (08:32→21:48)
[2017-06-01] MEDS: LOSARTAN 50 MG TAB PO (08:35)
[2017-06-01] MEDS: CALCIUM CARBONATE 1.25 GM TAB PO ×2 (08:36→21:48)
[2017-06-01] MEDS: DICYCLOMINE 10 MG CAP PO ×2 (08:36→21:48)
[2017-06-01] MEDS: BISOPROLOL 5 MG TAB PO (08:36)
[2017-06-01] MEDS: COLLAGENASE 30 GM TUBE TOP (08:39)
[2017-06-01] MEDS ORDERED: BISOPROLOL 5 MG TAB PO (09:00)
[2017-06-01] MEDS: BISACODYL (EC) 5 MG TAB PO ×2 (16:03→21:48)
[2017-06-01] MEDS: PEG/ELECTROLYTES 4L BTL PO (17:30)
[2017-06-01] MEDS: CASPOFUNGIN 50 MG in SOD CHLORIDE 0.9% 250 ML IVPB (21:48)
[2017-06-02] MEDS: ALBUTEROL/IPRATROPIUM (NEB) 3 ML AMP HHN ×4 (01:37→20:24)
[2017-06-02] MEDS: ACCU-CHEK XX (02:00)
[2017-06-02] MEDS: PANTOPRAZOLE (EC) 40 MG TAB PO ×2 (06:00→17:45)
[2017-06-02] MEDS: INSULIN ASPART [NOVOLOG] 3 ML PEN SC ×4 (08:00→21:00)
[2017-06-02 08:24] LABS: ALANINE AMINOTRANSFERASE 24 IU/L (13-69); ALBUMIN 1.9 g/dl (3.3-4.9); ALBUMIN/GLOBULIN RATIO 0.52; ALKALINE PHOSPHATASE 110 IU/L (42-121); ANION GAP 6 (8-16); ASPARTATE AMINO TRANSFERASE 32 IU/L (15-46); BILIRUBIN,INDIRECT 0.2 mg/dl (0-1.1); BILIRUBIN,TOTAL 0.2 mg/dl (0.2-1.3); BLOOD UREA NITROGEN 12 mg/dl (7-20); CALCIUM 7.5 mg/dl (8.4-10.2); CARBON DIOXIDE 30 mmol/L (21-31); CHLORIDE 106 mmol/L (97-110); GLUCOSE 138 mg/dl (70-220); POTASSIUM 3.4 mmol/L (3.5-5.1); SODIUM 139 mmol/L (135-144); TOTAL PROTEIN 5.5 g/dl (6.1-8.1)
[2017-06-02] MEDS: DEXTROSE 5%-0.45% NACL 1,000 ML IV (08:48)
[2017-06-02] MEDS: ASCORBIC ACID 500 MG TAB PO (09:15)
[2017-06-02] MEDS: LEVETIRACETAM 500 MG TAB PO ×2 (09:15→21:49)
[2017-06-02] MEDS: CALCIUM CARBONATE 1.25 GM TAB PO ×2 (09:15→21:49)
[2017-06-02] MEDS: BISOPROLOL 5 MG TAB PO (09:15)
[2017-06-02] MEDS: LOSARTAN 50 MG TAB PO (09:15)
[2017-06-02] MEDS: DICYCLOMINE 10 MG CAP PO ×2 (09:15→21:49)
[2017-06-02] MEDS: COLLAGENASE 30 GM TUBE TOP (09:20)
[2017-06-02] MEDS ORDERED: POTASSIUM CHLORIDE 50 ML IVPB (10:00)
[2017-06-02] MEDS ORDERED: PROPOFOL 40 ML (12:05)
[2017-06-02] MEDS ORDERED: LIDOCAINE 2% (SDV) 5 ML INJ (12:05)
[2017-06-02] MEDS ORDERED: FENTAnyl 50 MCG/ML VIAL (12:05)
[2017-06-02] MEDS ORDERED: ETOMIDATE 20 MG INJ (12:06)
[2017-06-02] MEDS: POTASSIUM CHLORIDE 20 MEQ /SW 100 ML IVPB (14:54)
[2017-06-02] MEDS: MAGNESIUM SULFATE 1 GM/D5W 100 ML IVPB (21:49)
[2017-06-02] MEDS: VORICONAZOLE 200 MG TAB PO (21:49)
[2017-06-03] MEDS: ALBUTEROL/IPRATROPIUM (NEB) 3 ML AMP HHN ×4 (01:08→20:07)
[2017-06-03] MEDS: ACCU-CHEK XX (02:00)
[2017-06-03] MEDS: PANTOPRAZOLE (EC) 40 MG TAB PO ×3 (06:00→19:19)
[2017-06-03] MEDS: INSULIN ASPART [NOVOLOG] 3 ML PEN SC ×4 (08:21→21:00)
[2017-06-03] MEDS: LEVETIRACETAM 500 MG TAB PO ×2 (09:00→19:02)
[2017-06-03] MEDS: ASCORBIC ACID 500 MG TAB PO ×2 (09:00→19:01)
[2017-06-03] MEDS: LOSARTAN 50 MG TAB PO (09:00)
[2017-06-03] MEDS: VORICONAZOLE 200 MG TAB PO ×2 (09:00→19:01)
[2017-06-03] MEDS: DICYCLOMINE 10 MG CAP PO ×2 (09:00→19:02)
[2017-06-03] MEDS: BISOPROLOL 5 MG TAB PO (09:00)
[2017-06-03] MEDS: CALCIUM CARBONATE 1.25 GM TAB PO ×2 (09:00→21:05)
[2017-06-03] MEDS ORDERED: SODIUM CHLORIDE 0.9% 1L BAG IV (09:30)
[2017-06-03] MEDS ORDERED: ALBUMIN HUMAN 25% 50 ML IV (09:30)
[2017-06-03 10:20] LABS: ABNORMAL IP MESSAGE 1; HEMATOCRIT 25.7 % (37.0-47.0); HEMOGLOBIN 8.1 g/dl (12.0-16.0); MEAN CORPUSCULAR HEMOGLOBIN 28.4 pg (29.0-33.0); MEAN CORPUSCULAR HGB CONC 31.5 g/dl (32.0-37.0); MEAN CORPUSCULAR VOLUME 90.2 fl (82.0-101.0); MEAN PLATELET VOLUME 10.3 fl (7.4-10.4); PLATELET COUNT 93 10^3/UL (140-415); RED BLOOD COUNT 2.85 10^6/ul (4.20-5.40); RED CELL DISTRIBUTION WIDTH 18.8 % (11.5-14.5)
[2017-06-03 10:20] LABS: WHITE BLOOD COUNT 7.3 10^3/ul (4.8-10.8)
[2017-06-03 10:22] LABS: ADD MAN DIFF? YES; POSITIVE DIFF @See below
[2017-06-03 10:49] LABS: PHOSPHORUS 2.6 mg/dl (2.5-4.9)
[2017-06-03 10:49] LABS: ANION GAP 9 (8-16); BLOOD UREA NITROGEN 17 mg/dl (7-20); CALCIUM 7.5 mg/dl (8.4-10.2); CARBON DIOXIDE 26 mmol/L (21-31); CHLORIDE 107 mmol/L (97-110); CREATININE 2.71 mg/dl (0.44-1.00); GLUCOSE 161 mg/dl (70-220); MAGNESIUM 1.8 mg/dl (1.7-2.5); POTASSIUM 3.5 mmol/L (3.5-5.1); SODIUM 138 mmol/L (135-144)
[2017-06-03 11:48] LABS: ANISOCYTOSIS 1+ (0-0); BAND NEUTROPHILS #M 2.7 10^3/ul (0.0-0.6); BAND NEUTROPHILS % (M) 38 % (0-4); EOSINOPHILS % (M) 1 % (0-7); GIANT THROMBO% (M) 1 % (0-0); LYMPHOCYTES #M 0.9 10^3/ul (0.8-2.9); LYMPHOCYTES % (M) 13 % (15-51); MONOCYTES % (M) 14 % (0-11); PLATELET ESTIMATE DECREASED; POLYCHROMASIA 1+ (0-0); SEG NEUT #M 2.7 10^3/ul (1.6-7.5); SEGMENTED NEUTROPHILS (M) % 34 % (39-77); SMUDGE%M 40 % (0-0)
[2017-06-03] MEDS: COLLAGENASE 30 GM TUBE TOP (12:34)
[2017-06-03] MEDS: HEPARIN 1000 UNITS/ML 10 ML INJ CATHETER (13:38)
[2017-06-04] MEDS: ALBUTEROL/IPRATROPIUM (NEB) 3 ML AMP HHN ×4 (01:42→19:29)
[2017-06-04] MEDS: ACCU-CHEK XX (02:00)
[2017-06-04] MEDS: PANTOPRAZOLE (EC) 40 MG TAB PO ×2 (05:31→17:35)
[2017-06-04] MEDS: INSULIN ASPART [NOVOLOG] 3 ML PEN SC ×4 (08:10→20:19)
[2017-06-04] MEDS: ASCORBIC ACID 500 MG TAB PO (08:36)
[2017-06-04] MEDS: DICYCLOMINE 10 MG CAP PO ×2 (08:37→20:04)
[2017-06-04] MEDS: CALCIUM CARBONATE 1.25 GM TAB PO ×2 (08:37→20:05)
[2017-06-04] MEDS: LEVETIRACETAM 500 MG TAB PO ×2 (08:37→20:05)
[2017-06-04] MEDS: VORICONAZOLE 200 MG TAB PO ×2 (08:37→20:04)
[2017-06-04] MEDS: LOSARTAN 50 MG TAB PO (08:37)
[2017-06-04] MEDS: COLLAGENASE 30 GM TUBE TOP (08:38)
[2017-06-04] MEDS: BISOPROLOL 5 MG TAB PO (08:38)
[2017-06-04] MEDS: VANCOMYCIN 1 GM 250 ML IVPB (11:09)
[2017-06-04] MEDS ORDERED: SOD CHLORIDE 0.9% 1,000 ML IV (19:47)
[2017-06-04] MEDS ORDERED: SODIUM CHLORIDE 0.9% 1L BAG IV (20:00)
[2017-06-05] MEDS: ACCU-CHEK XX (01:52)
[2017-06-05] MEDS: ALBUTEROL/IPRATROPIUM (NEB) 3 ML AMP HHN ×4 (02:14→20:05)
[2017-06-05] MEDS: PANTOPRAZOLE (EC) 40 MG TAB PO ×2 (05:18→17:29)
[2017-06-05] MEDS: CALCIUM CARBONATE 1.25 GM TAB PO ×3 (09:00→20:26)
[2017-06-05] MEDS: LEVETIRACETAM 500 MG TAB PO ×3 (09:00→20:26)
[2017-06-05] MEDS: LOSARTAN 50 MG TAB PO (09:00)
[2017-06-05] MEDS: ASCORBIC ACID 500 MG TAB PO ×2 (09:00→11:28)
[2017-06-05] MEDS: VORICONAZOLE 200 MG TAB PO ×3 (09:00→20:26)
[2017-06-05] MEDS: BISOPROLOL 5 MG TAB PO (09:00)
[2017-06-05] MEDS: DICYCLOMINE 10 MG CAP PO ×3 (09:00→20:26)
[2017-06-05] MEDS: INSULIN ASPART [NOVOLOG] 3 ML PEN SC ×4 (09:19→20:33)
[2017-06-05 09:24] LABS: WHITE BLOOD COUNT 9.9 10^3/ul (4.8-10.8)
[2017-06-05 09:24] LABS: ABNORMAL IP MESSAGE 1; HEMATOCRIT 25.3 % (37.0-47.0); HEMOGLOBIN 7.8 g/dl (12.0-16.0); MEAN CORPUSCULAR HEMOGLOBIN 27.7 pg (29.0-33.0); MEAN CORPUSCULAR HGB CONC 30.8 g/dl (32.0-37.0); MEAN CORPUSCULAR VOLUME 89.7 fl (82.0-101.0); MEAN PLATELET VOLUME 11.8 fl (7.4-10.4); PLATELET COUNT 95 10^3/UL (140-415); RED BLOOD COUNT 2.82 10^6/ul (4.20-5.40); RED CELL DISTRIBUTION WIDTH 18.6 % (11.5-14.5)
[2017-06-05 09:26] LABS: POSITIVE DIFF @See below
[2017-06-05 09:27] LABS: ADD MAN DIFF? YES
[2017-06-05] MEDS: COLLAGENASE 30 GM TUBE TOP (09:39)
[2017-06-05 09:48] LABS: ANION GAP 4 (8-16); BLOOD UREA NITROGEN 25 mg/dl (7-20); CALCIUM 7.8 mg/dl (8.4-10.2); CARBON DIOXIDE 29 mmol/L (21-31); CHLORIDE 107 mmol/L (97-110); CREATININE 2.95 mg/dl (0.44-1.00); GLUCOSE 118 mg/dl (70-220); SODIUM 136 mmol/L (135-144)
[2017-06-05 10:05] LABS: ANISOCYTOSIS 1+ (0-0); BAND NEUTROPHILS % (M) 41 % (0-4); BASOPHILS % (M) 1 % (0-2); EOSINOPHILS % (M) 1 % (0-7); GIANT THROMBO% (M) 1 % (0-0); LYMPHOCYTES #M 0.8 10^3/ul (0.8-2.9); LYMPHOCYTES % (M) 9 % (15-51); MONOCYTE #M 0.4 10^3/ul (0.3-0.9); MONOCYTES % (M) 5 % (0-11); PLATELET ESTIMATE DECREASED; SEG NEUT #M 4.7 10^3/ul (1.6-7.5); SEGMENTED NEUTROPHILS (M) % 43 % (39-77); SMUDGE%M 17 % (0-0)
[2017-06-05 10:15] LABS: MAGNESIUM 1.9 mg/dl (1.7-2.5)
[2017-06-05 10:15] LABS: PHOSPHORUS 2.3 mg/dl (2.5-4.9)
[2017-06-05] MEDS: ALBUMIN HUMAN 25% 50 ML IV (11:08)
[2017-06-05] MEDS: HEPARIN 1000 UNITS/ML 10 ML INJ CATHETER (11:11)
[2017-06-05] MEDS: CEFEPIME 1GM/50 ML (PMX) 50 ML IVPB (12:38)
[2017-06-05] MEDS: EPOETIN 4000 UNITS/1 ML INJ (ESRD) SC (17:23)
[2017-06-05] MEDS: METHYLPREDNISOLONE 40 MG INJ IV (21:57)
[2017-06-06] MEDS: ACCU-CHEK XX (01:43)
[2017-06-06] MEDS: ALBUTEROL/IPRATROPIUM (NEB) 3 ML AMP HHN (02:00)
[2017-06-06] MEDS: PANTOPRAZOLE (EC) 40 MG TAB PO ×2 (05:38→17:27)
[2017-06-06] MEDS: METHYLPREDNISOLONE 40 MG INJ IV ×3 (05:38→22:21)
[2017-06-06] MEDS: LEVALBUTEROL (NEB) 0.63 MG/3 ML AMP HHN ×4 (08:00→21:33)
[2017-06-06 08:11] LABS: ABNORMAL IP MESSAGE 1; HEMATOCRIT 22.3 % (37.0-47.0); MEAN CORPUSCULAR HEMOGLOBIN 27.9 pg (29.0-33.0); MEAN CORPUSCULAR HGB CONC 30.9 g/dl (32.0-37.0); MEAN CORPUSCULAR VOLUME 90.3 fl (82.0-101.0); MEAN PLATELET VOLUME 11.8 fl (7.4-10.4); PLATELET COUNT 72 10^3/UL (140-415); RED BLOOD COUNT 2.47 10^6/ul (4.20-5.40); RED CELL DISTRIBUTION WIDTH 18.4 % (11.5-14.5)
[2017-06-06 08:11] LABS: WHITE BLOOD COUNT 5.7 10^3/ul (4.8-10.8)
[2017-06-06 08:27] LABS: ADD MAN DIFF? YES; HEMOGLOBIN 6.9 g/dl (12.0-16.0); POSITIVE DIFF @See below
[2017-06-06 08:32] LABS: ANION GAP 10 (8-16); BLOOD UREA NITROGEN 21 mg/dl (7-20); CALCIUM 7.6 mg/dl (8.4-10.2); CARBON DIOXIDE 27 mmol/L (21-31); CHLORIDE 103 mmol/L (97-110); CREATININE 2.03 mg/dl (0.44-1.00); GLUCOSE 192 mg/dl (70-220); POTASSIUM 4.9 mmol/L (3.5-5.1); SODIUM 135 mmol/L (135-144)
[2017-06-06 08:34] LABS: MAGNESIUM 1.8 mg/dl (1.7-2.5)
[2017-06-06] MEDS: CALCIUM CARBONATE 1.25 GM TAB PO ×2 (08:50→20:17)
[2017-06-06] MEDS: DICYCLOMINE 10 MG CAP PO ×2 (08:50→20:17)
[2017-06-06] MEDS: LEVETIRACETAM 500 MG TAB PO ×2 (08:50→20:17)
[2017-06-06] MEDS: VORICONAZOLE 200 MG TAB PO ×2 (08:50→20:17)
[2017-06-06] MEDS: ASCORBIC ACID 500 MG TAB PO (08:50)
[2017-06-06] MEDS: INSULIN ASPART [NOVOLOG] 3 ML PEN SC ×4 (08:54→20:25)
[2017-06-06] MEDS: COLLAGENASE 30 GM TUBE TOP (08:57)
[2017-06-06] MEDS: INSULIN GLARGINE [LANtus] 3 ML PEN SC (09:30)
[2017-06-06 09:38] LABS: ANISOCYTOSIS 1+ (0-0); BAND NEUTROPHILS #M 1.5 10^3/ul (0.0-0.6); BAND NEUTROPHILS % (M) 27 % (0-4); GIANT THROMBO% (M) 8 % (0-0); HYPOCHROMASIA 1+ (0-0); LYMPHOCYTES #M 0.7 10^3/ul (0.8-2.9); LYMPHOCYTES % (M) 13 % (15-51); MONOCYTE #M 0.2 10^3/ul (0.3-0.9); MONOCYTES % (M) 5 % (0-11); PLATELET ESTIMATE DECREASED; POLYCHROMASIA 2+ (0-0); SEG NEUT #M 3.2 10^3/ul (1.6-7.5); SEGMENTED NEUTROPHILS (M) % 55 % (39-77); SMUDGE%M 2 % (0-0)
[2017-06-06 12:10] LABS: HEMATOCRIT 24.3 % (37.0-47.0); HEMOGLOBIN 7.5 g/dl (12.0-16.0)
[2017-06-06] MEDS: METHYLPREDNISOLONE 125 MG INJ IV (16:10)
[2017-06-07] MEDS: ACETAMINOPHEN 325 MG TAB PO (00:13)
[2017-06-07] MEDS: LEVALBUTEROL (NEB) 0.63 MG/3 ML AMP HHN ×6 (01:10→20:21)
[2017-06-07] MEDS: ACCU-CHEK XX (02:00)
[2017-06-07] MEDS: PANTOPRAZOLE (EC) 40 MG TAB PO ×2 (06:08→17:24)
[2017-06-07] MEDS: METHYLPREDNISOLONE 40 MG INJ IV ×3 (06:08→22:00)
[2017-06-07] MEDS ORDERED: INSULIN GLARGINE [LANtus] 3 ML PEN SC (08:00)
[2017-06-07] MEDS: INSULIN ASPART [NOVOLOG] 3 ML PEN SC ×4 (08:08→20:45)
[2017-06-07] MEDS: VORICONAZOLE 200 MG TAB PO ×2 (08:09→20:45)
[2017-06-07] MEDS: INSULIN GLARGINE [LANtus] 3 ML PEN SC (08:09)
[2017-06-07] MEDS: LEVETIRACETAM 500 MG TAB PO ×2 (08:09→20:45)
[2017-06-07] MEDS: ASCORBIC ACID 500 MG TAB PO (08:09)
[2017-06-07] MEDS: CALCIUM CARBONATE 1.25 GM TAB PO ×2 (08:10→20:45)
[2017-06-07] MEDS: COLLAGENASE 30 GM TUBE TOP (08:11)
[2017-06-07] MEDS: DICYCLOMINE 10 MG CAP PO ×2 (09:41→20:45)
[2017-06-07] MEDS ORDERED: EPOETIN 10000 UNITS/1 ML INJ (ESRD) SC (17:00)
[2017-06-07] MEDS: EPOETIN 10000 UNITS/1 ML INJ (ESRD) SC (17:24)
[2017-06-07] MEDS ORDERED: SODIUM CHLORIDE 0.9% 1L BAG IV (18:00)
[2017-06-07] MEDS ORDERED: MANNITOL 25% 50 ML IV (18:00)
[2017-06-07] MEDS ORDERED: ALBUMIN HUMAN 25% 50 ML IV (18:00)
[2017-06-07] MEDS ORDERED: COLLAGENASE 30 GM TUBE TOP (21:00)
[2017-06-07] MEDS: HEPARIN 1000 UNITS/ML 10 ML INJ CATHETER (23:46)
[2017-06-08] MEDS: LEVALBUTEROL (NEB) 0.63 MG/3 ML AMP HHN ×6 (01:00→20:28)
[2017-06-08] MEDS: ACCU-CHEK XX (02:00)
[2017-06-08] MEDS: METHYLPREDNISOLONE 40 MG INJ IV ×3 (06:10→21:24)
[2017-06-08] MEDS: PANTOPRAZOLE (EC) 40 MG TAB PO ×2 (06:10→17:40)
[2017-06-08 06:54] LABS: WHITE BLOOD COUNT 13.3 10^3/ul (4.8-10.8)
[2017-06-08 06:54] LABS: ABNORMAL IP MESSAGE 1; HEMATOCRIT 24.6 % (37.0-47.0); HEMOGLOBIN 7.9 g/dl (12.0-16.0); MEAN CORPUSCULAR HEMOGLOBIN 27.8 pg (29.0-33.0); MEAN CORPUSCULAR HGB CONC 32.1 g/dl (32.0-37.0); MEAN CORPUSCULAR VOLUME 86.6 fl (82.0-101.0); MEAN PLATELET VOLUME 12.3 fl (7.4-10.4); NUCLEATED RED BLOOD CELLS% 0.3 /100WBC (0.0-0.0); PLATELET COUNT 114 10^3/UL (140-415); RED BLOOD COUNT 2.84 10^6/ul (4.20-5.40); RED CELL DISTRIBUTION WIDTH 18.5 % (11.5-14.5)
[2017-06-08 07:02] LABS: ADD MAN DIFF? YES; POSITIVE DIFF @See below
[2017-06-08 07:26] LABS: ANION GAP 7 (8-16); BLOOD UREA NITROGEN 19 mg/dl (7-20); CARBON DIOXIDE 29 mmol/L (21-31); CHLORIDE 103 mmol/L (97-110); CREATININE 1.55 mg/dl (0.44-1.00); GLUCOSE 109 mg/dl (70-220); SODIUM 135 mmol/L (135-144)
[2017-06-08] MEDS: INSULIN ASPART [NOVOLOG] 3 ML PEN SC ×4 (08:00→21:00)
[2017-06-08] MEDS: INSULIN GLARGINE [LANtus] 3 ML PEN SC ×2 (08:00→08:59)
[2017-06-08 08:38] LABS: ANISOCYTOSIS 1+ (0-0); BAND NEUTROPHILS #M 4.1 10^3/ul (0.0-0.6); BAND NEUTROPHILS % (M) 31 % (0-4); GIANT THROMBO% (M) 2 % (0-0); HYPOCHROMASIA 1+ (0-0); LYMPHOCYTES #M 1.4 10^3/ul (0.8-2.9); LYMPHOCYTES % (M) 11 % (15-51); METAMYELOCYTES #M 0.3 10^3/ul (0.0-0.0); METAMYELOCYTES %M 3 % (0-0); MICROCYTOSIS 1+ (0-0); MONOCYTES % (M) 8 % (0-11); MYELOCYTES #M 0.6 10^3/ul (0.0-0.0); MYELOCYTES % (M) 5 % (0-0); PLATELET ESTIMATE DECREASED; POLYCHROMASIA 2+ (0-0); PROMYELOCYTES #M 0.1 10^3/ul (0-0); PROMYELOCYTES % (M) 1 % (0-0); SEGMENTED NEUTROPHILS (M) % 41 % (39-77); SMUDGE%M 10 % (0-0); TARGET CELLS 1+ (0-0)
[2017-06-08] MEDS: LEVETIRACETAM 500 MG TAB PO ×2 (08:45→21:24)
[2017-06-08] MEDS: VORICONAZOLE 200 MG TAB PO ×2 (08:45→21:24)
[2017-06-08] MEDS: ASCORBIC ACID 500 MG TAB PO (08:45)
[2017-06-08] MEDS: CALCIUM CARBONATE 1.25 GM TAB PO ×2 (08:45→21:24)
[2017-06-08] MEDS: COLLAGENASE 30 GM TUBE TOP (08:46)
[2017-06-08] MEDS: DICYCLOMINE 10 MG CAP PO ×2 (09:00→21:24)
[2017-06-08] MEDS: POLYETHYLENE GLYCOL 17 GM PACKET GTB (11:00)
[2017-06-09] MEDS: LEVALBUTEROL (NEB) 0.63 MG/3 ML AMP HHN ×6 (01:37→20:20)
[2017-06-09] MEDS: ACCU-CHEK XX (02:00)
[2017-06-09] MEDS: METHYLPREDNISOLONE 40 MG INJ IV ×3 (05:49→21:28)
[2017-06-09] MEDS: PANTOPRAZOLE (EC) 40 MG TAB PO ×2 (05:56→18:30)
[2017-06-09] MEDS: INSULIN ASPART [NOVOLOG] 3 ML PEN SC ×4 (08:00→21:00)
[2017-06-09 08:33] LABS: ABNORMAL IP MESSAGE 1; HEMATOCRIT 23.8 % (37.0-47.0); HEMOGLOBIN 7.7 g/dl (12.0-16.0); MEAN CORPUSCULAR HGB CONC 32.4 g/dl (32.0-37.0); MEAN CORPUSCULAR VOLUME 86.5 fl (82.0-101.0); MEAN PLATELET VOLUME 11.9 fl (7.4-10.4); NUCLEATED RED BLOOD CELLS% 1.4 /100WBC (0.0-0.0); PLATELET COUNT 132 10^3/UL (140-415); RED BLOOD COUNT 2.75 10^6/ul (4.20-5.40)
[2017-06-09 08:33] LABS: WHITE BLOOD COUNT 14.4 10^3/ul (4.8-10.8)
[2017-06-09 08:40] LABS: POSITIVE DIFF @See below
[2017-06-09 08:48] LABS: ADD MAN DIFF? YES
[2017-06-09 08:50] LABS: MAGNESIUM 1.9 mg/dl (1.7-2.5)
[2017-06-09 08:50] LABS: PHOSPHORUS 1.1 mg/dl (2.5-4.9)
[2017-06-09 08:57] LABS: ANION GAP 7 (8-16); BLOOD UREA NITROGEN 29 mg/dl (7-20); CALCIUM 7.9 mg/dl (8.4-10.2); CARBON DIOXIDE 29 mmol/L (21-31); CHLORIDE 101 mmol/L (97-110); CREATININE 2.02 mg/dl (0.44-1.00); GLUCOSE 110 mg/dl (70-220); POTASSIUM 4.3 mmol/L (3.5-5.1); SODIUM 133 mmol/L (135-144)
[2017-06-09] MEDS: POLYETHYLENE GLYCOL 17 GM PACKET GTB (09:00)
[2017-06-09] MEDS: DICYCLOMINE 10 MG CAP PO ×2 (09:05→21:28)
[2017-06-09] MEDS: CALCIUM CARBONATE 1.25 GM TAB PO ×2 (09:05→21:28)
[2017-06-09] MEDS: ASCORBIC ACID 500 MG TAB PO (09:05)
[2017-06-09] MEDS: VORICONAZOLE 200 MG TAB PO (09:05)
[2017-06-09] MEDS: LEVETIRACETAM 500 MG TAB PO ×2 (09:06→21:28)
[2017-06-09] MEDS: INSULIN GLARGINE [LANtus] 3 ML PEN SC (09:25)
[2017-06-09] MEDS: COLLAGENASE 30 GM TUBE TOP (09:26)
[2017-06-09 09:37] LABS: INR 1.13; PROTIME 14.7 Sec (11.9-14.9); PT RATIO 1.1
[2017-06-09 09:38] LABS: PARTIAL THROMBOPLASTIN TIME 27.4 Sec (25.0-35.0)
[2017-06-09 10:28] LABS: ANISOCYTOSIS 1+ (0-0); BAND NEUTROPHILS #M 3.4 10^3/ul (0.0-0.6); BAND NEUTROPHILS % (M) 24 % (0-4); ERYTHROBLAST% (NRBC) (M) 4 % (0-0); LYMPHOCYTES #M 0.7 10^3/ul (0.8-2.9); LYMPHOCYTES % (M) 5 % (15-51); METAMYELOCYTES #M 0.5 10^3/ul (0.0-0.0); METAMYELOCYTES %M 4 % (0-0); MICROCYTOSIS 1+ (0-0); MONOCYTE #M 1.7 10^3/ul (0.3-0.9); MONOCYTES % (M) 12 % (0-11); MYELOCYTES #M 0.2 10^3/ul (0.0-0.0); MYELOCYTES % (M) 2 % (0-0); PLATELET ESTIMATE DECREASED; POIKILOCYTOSIS 1+ (0-0); POLYCHROMASIA 3+ (0-0); SEG NEUT #M 8.1 10^3/ul (1.6-7.5); SEGMENTED NEUTROPHILS (M) % 53 % (39-77); SMUDGE%M 9 % (0-0); TARGET CELLS 1+ (0-0)
[2017-06-09] MEDS: POTASSIUM PHOSPHATE 40 MEQ in SOD CHLORIDE 0.9% 250 ML IVPB (11:37)
[2017-06-09] MEDS: LIDOCAINE 1% (MDV) 20 ML INJ (12:55)
[2017-06-09] MEDS ORDERED: FENTAnyl 50 MCG/ML VIAL (13:10)
[2017-06-09] MEDS ORDERED: SOD CHLORIDE 0.9% 1,000 ML IV (13:49)
[2017-06-09] MEDS ORDERED: HEPARIN 1000 UNITS/ML 10 ML INJ CATHETER (14:00)
[2017-06-09] MEDS ORDERED: SODIUM CHLORIDE 0.9% 1L BAG IV (14:00)
[2017-06-09] MEDS ORDERED: ALBUMIN HUMAN 25% 50 ML IV (14:00)
[2017-06-09] MEDS ORDERED: LABETALOL HCL 20MG INJ IV (14:30)
[2017-06-09] MEDS ORDERED: hydrALAzine 20 MG INJ IV (14:30)
[2017-06-09] MEDS ORDERED: FENTAnyl 50 MCG/ML VIAL IV (14:30)
[2017-06-09] MEDS: PHENOL 1.4% SOLN 180 ML BTL MT (18:33)
[2017-06-10] MEDS: LEVALBUTEROL (NEB) 0.63 MG/3 ML AMP HHN ×6 (00:20→20:33)
[2017-06-10] MEDS: ACCU-CHEK XX (02:00)
[2017-06-10] MEDS: METHYLPREDNISOLONE 40 MG INJ IV ×2 (04:53→21:07)
[2017-06-10] MEDS: PANTOPRAZOLE (EC) 40 MG TAB PO ×2 (04:53→17:31)
[2017-06-10 07:41] LABS: ADD MAN DIFF? NO
[2017-06-10 07:46] LABS: WHITE BLOOD COUNT 18.7 10^3/ul (4.8-10.8)
[2017-06-10 07:46] LABS: ABNORMAL IP MESSAGE 1; HEMATOCRIT 24.5 % (37.0-47.0); HEMOGLOBIN 7.9 g/dl (12.0-16.0); MEAN CORPUSCULAR HGB CONC 32.2 g/dl (32.0-37.0); MEAN CORPUSCULAR VOLUME 86.9 fl (82.0-101.0); MEAN PLATELET VOLUME 11.4 fl (7.4-10.4); NUCLEATED RED BLOOD CELLS% 0.8 /100WBC (0.0-0.0); PLATELET COUNT 148 10^3/UL (140-415); RED BLOOD COUNT 2.82 10^6/ul (4.20-5.40)
[2017-06-10 07:52] LABS: POSITIVE DIFF @See below
[2017-06-10] MEDS: INSULIN ASPART [NOVOLOG] 3 ML PEN SC ×4 (08:00→21:00)
[2017-06-10 08:15] LABS: PHOSPHORUS 3.2 mg/dl (2.5-4.9)
[2017-06-10] MEDS: INSULIN GLARGINE [LANtus] 3 ML PEN SC (08:33)
[2017-06-10] MEDS: LEVETIRACETAM 500 MG TAB PO ×2 (08:37→21:07)
[2017-06-10] MEDS: DICYCLOMINE 10 MG CAP PO ×2 (08:37→21:07)
[2017-06-10] MEDS: ASCORBIC ACID 500 MG TAB PO (08:37)
[2017-06-10] MEDS: CALCIUM CARBONATE 1.25 GM TAB PO ×2 (08:37→21:07)
[2017-06-10] MEDS: POLYETHYLENE GLYCOL 17 GM PACKET GTB (08:37)
[2017-06-10] MEDS: COLLAGENASE 30 GM TUBE TOP (08:39)
[2017-06-10 09:59] LABS: ANISOCYTOSIS 2+ (0-0); BAND NEUTROPHILS % (M) 27 % (0-4); DIMORPHIC RBC 1+ (0-0); GIANT THROMBO% (M) 1 % (0-0); HYPOCHROMASIA 1+ (0-0); LYMPHOCYTES #M 0.5 10^3/ul (0.8-2.9); LYMPHOCYTES % (M) 3 % (15-51); METAMYELOCYTES #M 0.1 10^3/ul (0.0-0.0); METAMYELOCYTES %M 1 % (0-0); MONOCYTE #M 0.9 10^3/ul (0.3-0.9); MONOCYTES % (M) 5 % (0-11); MYELOCYTES #M 0.1 10^3/ul (0.0-0.0); MYELOCYTES % (M) 1 % (0-0); PLATELET ESTIMATE NORMAL; POLYCHROMASIA 2+ (0-0); PROMYELOCYTES #M 0.1 10^3/ul (0-0); PROMYELOCYTES % (M) 1 % (0-0); REACTIVE LYMPHOCYTES #M 0.3 10^3/ul (0.0-0.0); REACTIVE LYMPHOCYTES% (M) 2 % (0-0); SEG NEUT #M 12.2 10^3/ul (1.6-7.5); SEGMENTED NEUTROPHILS (M) % 60 % (39-77); SMUDGE%M 2 % (0-0); TEAR DROP CELLS 1+ (0-0)
[2017-06-10 13:41] LABS: ANION GAP 10 (8-16); BLOOD UREA NITROGEN 40 mg/dl (7-20); CALCIUM 7.7 mg/dl (8.4-10.2); CARBON DIOXIDE 26 mmol/L (21-31); CHLORIDE 102 mmol/L (97-110); CREATININE 2.15 mg/dl (0.44-1.00); GLUCOSE 112 mg/dl (70-220); POTASSIUM 5.1 mmol/L (3.5-5.1); SODIUM 133 mmol/L (135-144)
[2017-06-10 16:29] LABS: HEPATITIS B SURFACE ANTIGEN NEGATIVE (NEGATIVE)
[2017-06-10 16:31] LABS: ERYTHROCYTE SEDIMENTATION RATE 40 mm/Hr (0-30)
[2017-06-10 16:47] LABS: HEPATITIS C VIRAL ANTIBODY NEGATIVE (NEGATIVE)
[2017-06-10] MEDS: HEPARIN 1000 UNITS/ML 10 ML INJ CATHETER (16:55)
[2017-06-10] MEDS: GLUCOSE GEL 15 GRAM TUBE PO (17:30)
[2017-06-10] MEDS: EPOETIN 10000 UNITS/1 ML INJ (ESRD) SC (17:31)
[2017-06-10] MEDS: DEXTROSE 50% 50 ML SYRINGE IV (17:38)
[2017-06-10] MEDS: VANCOMYCIN HCL 250 MG/5ML POSYG PO (17:56)
[2017-06-10 18:13] LABS: HEPATITIS B SURFACE ANTIBODY NEGATIVE (NEGATIVE)
[2017-06-10 18:31] LABS: ANA SCREEN POSITIVE (NEGATIVE)
[2017-06-10 19:55] LABS: ANA PATTERN SPECKLED
[2017-06-11] MEDS: VANCOMYCIN HCL 250 MG/5ML POSYG PO ×4 (00:27→17:31)
[2017-06-11] MEDS: LEVALBUTEROL (NEB) 0.63 MG/3 ML AMP HHN ×6 (00:55→20:07)
[2017-06-11] MEDS: ACCU-CHEK XX (02:00)
[2017-06-11] MEDS: PANTOPRAZOLE (EC) 40 MG TAB PO ×2 (05:05→17:31)
[2017-06-11] MEDS: INSULIN ASPART [NOVOLOG] 3 ML PEN SC ×4 (08:00→23:43)
[2017-06-11] MEDS: POLYETHYLENE GLYCOL 17 GM PACKET GTB (09:00)
[2017-06-11] MEDS: DICYCLOMINE 10 MG CAP PO ×2 (09:34→23:32)
[2017-06-11] MEDS: CALCIUM CARBONATE 1.25 GM TAB PO ×2 (09:34→23:32)
[2017-06-11] MEDS: COLLAGENASE 30 GM TUBE TOP (09:34)
[2017-06-11] MEDS: METHYLPREDNISOLONE 40 MG INJ IV ×2 (09:34→23:32)
[2017-06-11] MEDS: ASCORBIC ACID 500 MG TAB PO (09:34)
[2017-06-11] MEDS: LEVETIRACETAM 500 MG TAB PO ×2 (09:34→23:32)
[2017-06-11] MEDS: INSULIN GLARGINE [LANtus] 3 ML PEN SC (09:44)
[2017-06-11 09:54] LABS: WHITE BLOOD COUNT 19.4 10^3/ul (4.8-10.8)
[2017-06-11 09:54] LABS: HEMATOCRIT 30.5 % (37.0-47.0); HEMOGLOBIN 9.4 g/dl (12.0-16.0); MEAN CORPUSCULAR HEMOGLOBIN 27.9 pg (29.0-33.0); MEAN CORPUSCULAR HGB CONC 30.8 g/dl (32.0-37.0); MEAN CORPUSCULAR VOLUME 90.5 fl (82.0-101.0); MEAN PLATELET VOLUME 10.5 fl (7.4-10.4); NUCLEATED RED BLOOD CELLS% 0.5 /100WBC (0.0-0.0); PLATELET COUNT 158 10^3/UL (140-415); RED BLOOD COUNT 3.37 10^6/ul (4.20-5.40); RED CELL DISTRIBUTION WIDTH 20.6 % (11.5-14.5)
[2017-06-11 09:55] LABS: ADD MAN DIFF? YES; POSITIVE DIFF @See below
[2017-06-11 10:15] LABS: PHOSPHORUS 2.9 mg/dl (2.5-4.9)
[2017-06-11 10:15] LABS: MAGNESIUM 1.8 mg/dl (1.7-2.5)
[2017-06-11 10:18] LABS: ANION GAP 8 (8-16); BLOOD UREA NITROGEN 22 mg/dl (7-20); CALCIUM 7.8 mg/dl (8.4-10.2); CARBON DIOXIDE 31 mmol/L (21-31); CHLORIDE 102 mmol/L (97-110); CREATININE 1.52 mg/dl (0.44-1.00); GLUCOSE 80 mg/dl (70-220); POTASSIUM 5.1 mmol/L (3.5-5.1); SODIUM 136 mmol/L (135-144)
[2017-06-11 10:27] LABS: ANISOCYTOSIS 2+ (0-0); BAND NEUTROPHILS #M 1.9 10^3/ul (0.0-0.6); BAND NEUTROPHILS % (M) 10 % (0-4); HYPOCHROMASIA 1+ (0-0); LYMPHOCYTES #M 0.7 10^3/ul (0.8-2.9); LYMPHOCYTES % (M) 4 % (15-51); MONOCYTE #M 0.1 10^3/ul (0.3-0.9); MONOCYTES % (M) 1 % (0-11); MYELOCYTES #M 0.1 10^3/ul (0.0-0.0); MYELOCYTES % (M) 1 % (0-0); PLATELET ESTIMATE NORMAL; POLYCHROMASIA 3+ (0-0); SEG NEUT #M 16.7 10^3/ul (1.6-7.5); SEGMENTED NEUTROPHILS (M) % 84 % (39-77); SMUDGE%M 2 % (0-0)
[2017-06-11] MEDS ORDERED: SODIUM CHLORIDE 0.9% 1L BAG IV (12:30)
[2017-06-11] MEDS: FUROSEMIDE 40 MG INJ IV ×2 (12:50→17:31)
[2017-06-11 13:31] LABS: ANA SCREEN NEGATIVE (NEGATIVE)
[2017-06-11] MEDS: HEPARIN 1000 UNITS/ML 10 ML INJ CATHETER (22:45)
[2017-06-12] MEDS: LEVALBUTEROL (NEB) 0.63 MG/3 ML AMP HHN ×6 (00:34→20:52)
[2017-06-12] MEDS: ACCU-CHEK XX (02:00)
[2017-06-12] MEDS: PANTOPRAZOLE (EC) 40 MG TAB PO ×2 (06:00→17:39)
[2017-06-12] MEDS: FUROSEMIDE 40 MG INJ IV ×2 (06:00→17:39)
[2017-06-12] MEDS: LEVETIRACETAM 500 MG TAB PO ×2 (08:58→21:11)
[2017-06-12] MEDS: POLYETHYLENE GLYCOL 17 GM PACKET GTB (08:58)
[2017-06-12] MEDS: METHYLPREDNISOLONE 40 MG INJ IV (08:58)
[2017-06-12] MEDS: ASCORBIC ACID 500 MG TAB PO (08:58)
[2017-06-12] MEDS: CALCIUM CARBONATE 1.25 GM TAB PO ×2 (08:58→21:11)
[2017-06-12] MEDS: DICYCLOMINE 10 MG CAP PO ×2 (08:58→21:18)
[2017-06-12] MEDS: INSULIN ASPART [NOVOLOG] 3 ML PEN SC ×4 (09:00→21:17)
[2017-06-12] MEDS: INSULIN GLARGINE [LANtus] 3 ML PEN SC (09:00)
[2017-06-12] MEDS: COLLAGENASE 30 GM TUBE TOP (09:01)
[2017-06-12 09:27] LABS: ANION GAP 10 (8-16); BLOOD UREA NITROGEN 25 mg/dl (7-20); CALCIUM 7.4 mg/dl (8.4-10.2); CARBON DIOXIDE 28 mmol/L (21-31); CHLORIDE 102 mmol/L (97-110); CREATININE 1.48 mg/dl (0.44-1.00); GLUCOSE 196 mg/dl (70-220); POTASSIUM 5.1 mmol/L (3.5-5.1); SODIUM 135 mmol/L (135-144)
[2017-06-12 09:59] LABS: MAGNESIUM 1.7 mg/dl (1.7-2.5)
[2017-06-12 09:59] LABS: PHOSPHORUS 2.5 mg/dl (2.5-4.9)
[2017-06-12 11:15] LABS: HEMATOCRIT 28.9 % (37.0-47.0); HEMOGLOBIN 8.6 g/dl (12.0-16.0); MEAN CORPUSCULAR HGB CONC 29.8 g/dl (32.0-37.0); MEAN CORPUSCULAR VOLUME 94.1 fl (82.0-101.0); MEAN PLATELET VOLUME 11.3 fl (7.4-10.4); NUCLEATED RED BLOOD CELLS% 0.9 /100WBC (0.0-0.0); RED BLOOD COUNT 3.07 10^6/ul (4.20-5.40); RED CELL DISTRIBUTION WIDTH 21.5 % (11.5-14.5)
[2017-06-12 11:15] LABS: WHITE BLOOD COUNT 15.9 10^3/ul (4.8-10.8)
[2017-06-12 11:20] LABS: ADD MAN DIFF? YES; PLATELET COUNT 120 10^3/UL (140-415); POSITIVE DIFF @See below
[2017-06-12 12:11] LABS: ANISOCYTOSIS 2+ (0-0); BAND NEUTROPHILS #M 1.4 10^3/ul (0.0-0.6); BAND NEUTROPHILS % (M) 9 % (0-4); ERYTHROBLAST% (NRBC) (M) 2 % (0-0); LYMPHOCYTES #M 0.6 10^3/ul (0.8-2.9); LYMPHOCYTES % (M) 4 % (15-51); MICROCYTOSIS 1+ (0-0); MONOCYTE #M 0.1 10^3/ul (0.3-0.9); MONOCYTES % (M) 1 % (0-11); PLATELET ESTIMATE DECREASED; POLYCHROMASIA 3+ (0-0); SEG NEUT #M 13.9 10^3/ul (1.6-7.5); SEGMENTED NEUTROPHILS (M) % 86 % (39-77); SMUDGE%M 9 % (0-0)
[2017-06-12] MEDS ORDERED: SOD CHLORIDE 0.9% 1,000 ML IV (15:43)
[2017-06-12] MEDS ORDERED: SODIUM CHLORIDE 0.9% 1L BAG IV (16:00)
[2017-06-12] MEDS ORDERED: HEPARIN 1000 UNITS/ML 10 ML INJ CATHETER (16:00)
[2017-06-12] MEDS ORDERED: ALBUMIN HUMAN 25% 50 ML IV (16:00)
[2017-06-12] MEDS: EPOETIN 10000 UNITS/1 ML INJ (ESRD) SC (17:25)
[2017-06-12 18:17] LABS: PROCALCITONIN 0.53 ng/mL (<0.10)
[2017-06-12] MEDS: METOPROLOL 25 MG TAB PO (21:12)
[2017-06-13] MEDS: LEVALBUTEROL (NEB) 0.63 MG/3 ML AMP HHN ×6 (01:30→21:03)
[2017-06-13] MEDS: ACCU-CHEK XX (02:00)
[2017-06-13] MEDS: PANTOPRAZOLE (EC) 40 MG TAB PO ×2 (06:00→17:34)
[2017-06-13] MEDS: FUROSEMIDE 40 MG INJ IV ×2 (06:09→17:34)
[2017-06-13] MEDS: INSULIN GLARGINE [LANtus] 3 ML PEN SC (08:00)
[2017-06-13] MEDS: INSULIN ASPART [NOVOLOG] 3 ML PEN SC ×4 (08:00→20:16)
[2017-06-13] MEDS: DEXTROSE 50% 50 ML SYRINGE IV (08:34)
[2017-06-13 08:44] LABS: WHITE BLOOD COUNT 12.9 10^3/ul (4.8-10.8)
[2017-06-13 08:44] LABS: ABNORMAL IP MESSAGE 1; HEMATOCRIT 25.2 % (37.0-47.0); HEMOGLOBIN 7.9 g/dl (12.0-16.0); MEAN CORPUSCULAR HEMOGLOBIN 28.4 pg (29.0-33.0); MEAN CORPUSCULAR HGB CONC 31.3 g/dl (32.0-37.0); MEAN CORPUSCULAR VOLUME 90.6 fl (82.0-101.0); MEAN PLATELET VOLUME 10.1 fl (7.4-10.4); NUCLEATED RED BLOOD CELLS% 0.7 /100WBC (0.0-0.0); PLATELET COUNT 109 10^3/UL (140-415); RED BLOOD COUNT 2.78 10^6/ul (4.20-5.40); RED CELL DISTRIBUTION WIDTH 22.2 % (11.5-14.5)
[2017-06-13 08:52] LABS: ADD MAN DIFF? YES; POSITIVE DIFF @See below
[2017-06-13 08:55] LABS: ANION GAP 8 (8-16); BLOOD UREA NITROGEN 39 mg/dl (7-20); CALCIUM 7.7 mg/dl (8.4-10.2); CARBON DIOXIDE 30 mmol/L (21-31); CHLORIDE 102 mmol/L (97-110); CREATININE 2.05 mg/dl (0.44-1.00); POTASSIUM 4.7 mmol/L (3.5-5.1); SODIUM 135 mmol/L (135-144)
[2017-06-13 09:00] LABS: GLUCOSE 42 mg/dl (70-220); MAGNESIUM 1.8 mg/dl (1.7-2.5)
[2017-06-13 09:00] LABS: PHOSPHORUS 1.9 mg/dl (2.5-4.9)
[2017-06-13] MEDS: METOPROLOL 25 MG TAB PO (09:00)
[2017-06-13] MEDS: COLLAGENASE 30 GM TUBE TOP (09:00)
[2017-06-13] MEDS: POLYETHYLENE GLYCOL 17 GM PACKET GTB (09:24)
[2017-06-13] MEDS: METHYLPREDNISOLONE 40 MG INJ IV (09:25)
[2017-06-13] MEDS: ASCORBIC ACID 500 MG TAB PO (09:26)
[2017-06-13] MEDS: DICYCLOMINE 10 MG CAP PO ×2 (09:26→20:17)
[2017-06-13] MEDS: LEVETIRACETAM 500 MG TAB PO ×2 (09:26→20:17)
[2017-06-13] MEDS: CALCIUM CARBONATE 1.25 GM TAB PO ×2 (09:26→20:17)
[2017-06-13 09:41] LABS: ANISOCYTOSIS 2+ (0-0); BAND NEUTROPHILS % (M) 39 % (0-4); EOSINOPHILS % (M) 1 % (0-7); MONOCYTE #M 0.1 10^3/ul (0.3-0.9); MONOCYTES % (M) 1 % (0-11); PLATELET ESTIMATE DECREASED; POIKILOCYTOSIS 2+ (0-0); POLYCHROMASIA 2+ (0-0); REACTIVE LYMPHOCYTES #M 0.1 10^3/ul (0.0-0.0); REACTIVE LYMPHOCYTES% (M) 1 % (0-0); SEG NEUT #M 8.1 10^3/ul (1.6-7.5); SEGMENTED NEUTROPHILS (M) % 58 % (39-77); SMUDGE%M 21 % (0-0)
[2017-06-13] MEDS: ALBUMIN HUMAN 25% 50 ML IV (12:18)
[2017-06-14] MEDS: LEVALBUTEROL (NEB) 0.63 MG/3 ML AMP HHN ×7 (00:51→20:22)
[2017-06-14] MEDS: ACCU-CHEK XX (03:09)
[2017-06-14] MEDS: PANTOPRAZOLE (EC) 40 MG TAB PO ×2 (05:36→18:09)
[2017-06-14] MEDS: FUROSEMIDE 40 MG INJ IV ×2 (05:37→18:10)
[2017-06-14] MEDS: POLYETHYLENE GLYCOL 17 GM PACKET GTB (07:50)
[2017-06-14] MEDS: INSULIN ASPART [NOVOLOG] 3 ML PEN SC ×4 (08:00→20:10)
[2017-06-14] MEDS: CALCIUM CARBONATE 1.25 GM TAB PO ×2 (10:15→20:08)
[2017-06-14] MEDS: ASCORBIC ACID 500 MG TAB PO (10:15)
[2017-06-14] MEDS: LEVETIRACETAM 500 MG TAB PO ×2 (10:15→20:08)
[2017-06-14] MEDS: DICYCLOMINE 10 MG CAP PO ×2 (10:15→20:08)
[2017-06-14] MEDS: METHYLPREDNISOLONE 40 MG INJ IV (10:16)
[2017-06-14] MEDS: COLLAGENASE 30 GM TUBE TOP (14:45)
[2017-06-14] MEDS: METOPROLOL 25 MG TAB PO ×2 (14:49→20:09)
[2017-06-14] MEDS: EPOETIN 10000 UNITS/1 ML INJ (ESRD) SC (18:08)
[2017-06-15] MEDS: LEVALBUTEROL (NEB) 0.63 MG/3 ML AMP HHN ×6 (00:56→20:32)
[2017-06-15] MEDS: ACCU-CHEK XX (01:44)
[2017-06-15] MEDS: Insulin NOVOLOG SS MILD Algorithm (NPO/TPN/ENTERAL FEEDS) SC ×5 (04:33→20:29)
[2017-06-15] MEDS ORDERED: INSULIN ASPART [NOVOLOG] 3 ML PEN SC (05:00)
[2017-06-15] MEDS: FUROSEMIDE 40 MG INJ IV ×2 (05:20→18:13)
[2017-06-15] MEDS: PANTOPRAZOLE (EC) 40 MG TAB PO ×2 (05:20→18:13)
[2017-06-15] MEDS: COLLAGENASE 30 GM TUBE TOP (09:00)
[2017-06-15] MEDS: POLYETHYLENE GLYCOL 17 GM PACKET GTB (09:00)
[2017-06-15] MEDS: METHYLPREDNISOLONE 40 MG INJ IV (09:49)
[2017-06-15] MEDS: LEVETIRACETAM 500 MG TAB PO ×2 (09:50→20:01)
[2017-06-15] MEDS: DICYCLOMINE 10 MG CAP PO ×2 (09:50→20:01)
[2017-06-15] MEDS: CALCIUM CARBONATE 1.25 GM TAB PO ×2 (09:50→20:01)
[2017-06-15] MEDS: ASCORBIC ACID 500 MG TAB PO (09:50)
[2017-06-15] MEDS: METOPROLOL 25 MG TAB PO ×2 (09:51→20:03)
[2017-06-15] MEDS: FENTAnyl 50 MCG/ML VIAL (12:13)
[2017-06-15] MEDS ORDERED: hydrALAzine 20 MG INJ IV (12:30)
[2017-06-15] MEDS ORDERED: LABETALOL HCL 20MG INJ IV (12:30)
[2017-06-15] MEDS ORDERED: ONDANSETRON 4 MG INJ IV (12:30)
[2017-06-15] MEDS ORDERED: ETOMIDATE 20 MG INJ (12:45)
[2017-06-15] MEDS ORDERED: CEFAZOLIN 1 GM INJ (13:17)
[2017-06-15] MEDS: CEFAZOLIN 2 GM/50 ML (PMX) 50 ML IVPB (14:34)
[2017-06-16] MEDS: LEVALBUTEROL (NEB) 0.63 MG/3 ML AMP HHN ×6 (00:50→20:23)
[2017-06-16] MEDS: Insulin NOVOLOG SS MILD Algorithm (NPO/TPN/ENTERAL FEEDS) SC ×6 (01:00→20:35)
[2017-06-16] MEDS: ACCU-CHEK XX (01:29)
[2017-06-16] MEDS: FUROSEMIDE 40 MG INJ IV (05:17)
[2017-06-16] MEDS: LANSOPRAZOLE 30 MG CAP GTB ×2 (05:22→17:29)
[2017-06-16] MEDS: ASCORBIC ACID 500 MG TAB PO (08:49)
[2017-06-16] MEDS: POLYETHYLENE GLYCOL 17 GM PACKET GTB (08:49)
[2017-06-16] MEDS: METHYLPREDNISOLONE 40 MG INJ IV (08:50)
[2017-06-16] MEDS: DICYCLOMINE 10 MG CAP PO ×2 (08:50→20:33)
[2017-06-16] MEDS: CALCIUM CARBONATE 1.25 GM TAB PO ×2 (08:50→20:33)
[2017-06-16] MEDS: LEVETIRACETAM 500 MG TAB PO ×2 (08:50→20:33)
[2017-06-16] MEDS: METOPROLOL 25 MG TAB PO (08:51)
[2017-06-16] MEDS: COLLAGENASE 30 GM TUBE TOP (08:51)
[2017-06-16] MEDS: ALBUMIN HUMAN 25% 50 ML IV ×2 (09:14→10:55)
[2017-06-16] MEDS: HEPARIN 1000 UNITS/ML 10 ML INJ CATHETER (11:40)
[2017-06-16 15:34] LABS: ABNORMAL IP MESSAGE 1; HEMATOCRIT 21.5 % (37.0-47.0); MEAN CORPUSCULAR HEMOGLOBIN 29.1 pg (29.0-33.0); MEAN CORPUSCULAR HGB CONC 30.2 g/dl (32.0-37.0); MEAN CORPUSCULAR VOLUME 96.4 fl (82.0-101.0); MEAN PLATELET VOLUME 10.4 fl (7.4-10.4); NUCLEATED RED BLOOD CELLS% 0.5 /100WBC (0.0-0.0); PLATELET COUNT 88 10^3/UL (140-415); RED BLOOD COUNT 2.23 10^6/ul (4.20-5.40); RED CELL DISTRIBUTION WIDTH 23.8 % (11.5-14.5)
[2017-06-16 15:34] LABS: WHITE BLOOD COUNT 7.9 10^3/ul (4.8-10.8)
[2017-06-16 15:37] LABS: ADD MAN DIFF? YES; HEMOGLOBIN 6.5 g/dl (12.0-16.0); POSITIVE DIFF @See below
[2017-06-16 15:52] LABS: ALANINE AMINOTRANSFERASE 29 IU/L (13-69); ALBUMIN 2.7 g/dl (3.3-4.9); ALKALINE PHOSPHATASE 458 IU/L (42-121); ANION GAP 11 (8-16); ASPARTATE AMINO TRANSFERASE 32 IU/L (15-46); BILIRUBIN,INDIRECT 0.1 mg/dl (0-1.1); BILIRUBIN,TOTAL 0.1 mg/dl (0.2-1.3); BLOOD UREA NITROGEN 24 mg/dl (7-20); CALCIUM 8.5 mg/dl (8.4-10.2); CARBON DIOXIDE 31 mmol/L (21-31); CHLORIDE 100 mmol/L (97-110); CREATININE 1.62 mg/dl (0.44-1.00); GLUCOSE 135 mg/dl (70-220); POTASSIUM 3.9 mmol/L (3.5-5.1); SODIUM 138 mmol/L (135-144); TOTAL PROTEIN 5.7 g/dl (6.1-8.1)
[2017-06-16 16:00] LABS: BAND NEUTROPHILS #M 0.3 10^3/ul (0.0-0.6); BAND NEUTROPHILS % (M) 4 % (0-4); LYMPHOCYTES # 0.6 10^3/ul (0.8-2.9); LYMPHOCYTES #M 0.5 10^3/ul (0.8-2.9); LYMPHOCYTES % (M) 7 % (15-51); MONOCYTE # 0.4 10^3/ul (0.3-0.9); MONOCYTE #M 0.3 10^3/ul (0.3-0.9); MONOCYTES % (M) 5 % (0-11); SEG NEUT #M 6.7 10^3/ul (1.7-7.5); SEGMENTED NEUTROPHILS (M) % 84 % (39-77)
[2017-06-16 16:01] LABS: ANISOCYTOSIS 2+ (0-0)
[2017-06-16] MEDS: ACETAMINOPHEN 325 MG TAB PO (22:16)
[2017-06-16 22:50] LABS: AHG CROSSMATCH 1 1
[2017-06-17] MEDS: Insulin NOVOLOG SS MILD Algorithm (NPO/TPN/ENTERAL FEEDS) SC ×6 (01:00→20:19)
[2017-06-17] MEDS: LEVALBUTEROL (NEB) 0.63 MG/3 ML AMP HHN ×4 (01:03→21:44)
[2017-06-17] MEDS: FUROSEMIDE 40 MG INJ IV ×2 (01:47→01:54)
[2017-06-17] MEDS: ACCU-CHEK XX (01:48)
[2017-06-17] MEDS: LANSOPRAZOLE 30 MG CAP GTB ×2 (05:25→17:46)
[2017-06-17] MEDS: POLYETHYLENE GLYCOL 17 GM PACKET GTB (09:00)
[2017-06-17] MEDS: COLLAGENASE 30 GM TUBE TOP (09:00)
[2017-06-17] MEDS: CALCIUM CARBONATE 1.25 GM TAB PO ×2 (09:46→20:16)
[2017-06-17] MEDS: DICYCLOMINE 10 MG CAP PO ×2 (09:47→20:16)
[2017-06-17] MEDS: predniSONE 20 MG TAB GTB (09:47)
[2017-06-17] MEDS: ASCORBIC ACID 500 MG TAB PO (09:48)
[2017-06-17] MEDS: LEVETIRACETAM 500 MG TAB PO ×2 (09:48→20:16)
[2017-06-17 16:59] LABS: HEMOGLOBIN 9.8 g/dl (12.0-16.0)
[2017-06-17] MEDS: EPOETIN 10000 UNITS/1 ML INJ (ESRD) SC (17:47)
[2017-06-17] MEDS: INSULIN GLARGINE [LANtus] 3 ML PEN SC (20:18)
[2017-06-18] MEDS: Insulin NOVOLOG SS MILD Algorithm (NPO/TPN/ENTERAL FEEDS) SC ×5 (01:00→17:13)
[2017-06-18] MEDS: LEVALBUTEROL (NEB) 0.63 MG/3 ML AMP HHN ×4 (01:00→13:00)
[2017-06-18] MEDS: ACCU-CHEK XX (02:00)
[2017-06-18] MEDS: LANSOPRAZOLE 30 MG CAP GTB ×2 (05:09→17:09)
[2017-06-18 08:34] LABS: WHITE BLOOD COUNT 6.6 10^3/ul (4.8-10.8)
[2017-06-18 08:34] LABS: ABNORMAL IP MESSAGE 1; HEMOGLOBIN 9.2 g/dl (12.0-16.0); MEAN CORPUSCULAR HEMOGLOBIN 29.8 pg (29.0-33.0); MEAN CORPUSCULAR HGB CONC 31.7 g/dl (32.0-37.0); MEAN CORPUSCULAR VOLUME 93.9 fl (82.0-101.0); MEAN PLATELET VOLUME 10.4 fl (7.4-10.4); NUCLEATED RED BLOOD CELLS% 0.3 /100WBC (0.0-0.0); PLATELET COUNT 112 10^3/UL (140-415); RED BLOOD COUNT 3.09 10^6/ul (4.20-5.40); RED CELL DISTRIBUTION WIDTH 22.2 % (11.5-14.5)
[2017-06-18 08:39] LABS: ADD MAN DIFF? YES; POSITIVE DIFF @See below
[2017-06-18 08:49] LABS: PATH REVIEW CH
[2017-06-18 08:56] LABS: ANION GAP 10 (8-16); BLOOD UREA NITROGEN 50 mg/dl (7-20); CALCIUM 8.3 mg/dl (8.4-10.2); CARBON DIOXIDE 31 mmol/L (21-31); CHLORIDE 100 mmol/L (97-110); CREATININE 2.16 mg/dl (0.44-1.00); GLUCOSE 181 mg/dl (70-220); POTASSIUM 3.4 mmol/L (3.5-5.1); SODIUM 138 mmol/L (135-144)
[2017-06-18] MEDS: POLYETHYLENE GLYCOL 17 GM PACKET GTB (09:00)
[2017-06-18 09:02] LABS: MAGNESIUM 1.8 mg/dl (1.7-2.5)
[2017-06-18] MEDS: COLLAGENASE 30 GM TUBE TOP (09:53)
[2017-06-18] MEDS: LEVETIRACETAM 500 MG TAB PO (09:55)
[2017-06-18] MEDS: CALCIUM CARBONATE 1.25 GM TAB PO (09:55)
[2017-06-18] MEDS: predniSONE 20 MG TAB GTB (09:55)
[2017-06-18] MEDS: DICYCLOMINE 10 MG CAP PO (09:55)
[2017-06-18] MEDS: ASCORBIC ACID 500 MG TAB PO (09:55)
[2017-06-18 10:03] LABS: ANISOCYTOSIS 2+ (0-0); BAND NEUTROPHILS #M 2.2 10^3/ul (0.0-0.6); BAND NEUTROPHILS % (M) 34 % (0-4); BURR CELLS 1+ (0-0); LYMPHOCYTES #M 0.5 10^3/ul (0.8-2.9); LYMPHOCYTES % (M) 9 % (15-51); MICROCYTOSIS 1+ (0-0); MONOCYTE #M 0.2 10^3/ul (0.3-0.9); MONOCYTES % (M) 4 % (0-11); PLATELET ESTIMATE DECREASED; POLYCHROMASIA 3+ (0-0); REACTIVE LYMPHOCYTES #M 0.1 10^3/ul (0.0-0.0); REACTIVE LYMPHOCYTES% (M) 2 % (0-0); SEG NEUT #M 3.5 10^3/ul (1.6-7.5); SEGMENTED NEUTROPHILS (M) % 51 % (39-77); SMUDGE%M 13 % (0-0)
[2017-06-18] MEDS ORDERED: SOD CHLORIDE 0.9% 1,000 ML IV (10:49)
[2017-06-18] MEDS ORDERED: ALBUMIN HUMAN 25% 50 ML IV (11:00)
[2017-06-18] MEDS ORDERED: SODIUM CHLORIDE 0.9% 1L BAG IV (11:00)
[2017-06-18] MEDS: HEPARIN 1000 UNITS/ML 10 ML INJ CATHETER (16:41)
== END 2017-06-18 17:33 | DRG 802 ==
LOC: E/R 13:15 → MS4 20:57 → MS1 05-24 14:13 → ICU 05-27 07:45 → MS4 05-27 20:45 → MS1 19:41
PROC: 0QB33ZX Excision of Left Pelvic Bone, Percutaneous Approach, Diagnostic (ICD-10-PCS; principal; 2017-06-02 12:00)
PROC: 07DR3ZX Extraction of Iliac Bone Marrow, Percutaneous Approach, Diagnostic (ICD-10-PCS; 2017-06-02 12:00)
PROC: 0DB68ZX Excision of Stomach, Via Natural or Artificial Opening Endoscopic, Diagnostic (ICD-10-PCS; 2017-06-02 12:00)
PROC: 0DJD8ZZ Inspection of Lower Intestinal Tract, Via Natural or Artificial Opening Endoscopic (ICD-10-PCS; 2017-06-02 12:00)
PROC: 0DH63UZ Insertion of Feeding Device into Stomach, Percutaneous Approach (ICD-10-PCS; 2017-06-02 12:00)
PROC: 30233N1 Transfusion of Nonautologous Red Blood Cells into Peripheral Vein, Percutaneous Approach (ICD-10-PCS; 2017-06-02 12:00)
PROC: 5A1D70Z Performance of Urinary Filtration, Intermittent, Less than 6 Hours Per Day (ICD-10-PCS; 2017-06-02 12:00)
DX: D50.9 Iron deficiency anemia, unspecified (principal); I50.33 Acute on chronic diastolic (congestive) heart failure; N17.0 Acute kidney failure with tubular necrosis; G93.6 Cerebral edema; A41.9 Sepsis, unspecified organism; G93.41 Metabolic encephalopathy; D61.818 Other pancytopenia; N18.6 End stage renal disease; K83.1 Obstruction of bile duct; L89.153 Pressure ulcer of sacral region, stage 3; E87.1 Hypo-osmolality and hyponatremia; I13.2 Hypertensive heart and chronic kidney disease with heart failure and with stage 5 chronic kidney disease, or end stage renal disease; I82.621 Acute embolism and thrombosis of deep veins of right upper extremity; D68.9 Coagulation defect, unspecified; B37.49 Other urogenital candidiasis; K62.6 Ulcer of anus and rectum; E11.22 Type 2 diabetes mellitus with diabetic chronic kidney disease; Z99.2 Dependence on renal dialysis; E66.9 Obesity, unspecified; Z68.26 Body mass index [BMI] 26.0-26.9, adult; Z87.19 Personal history of other diseases of the digestive system; Z87.11 Personal history of peptic ulcer disease; I25.10 Atherosclerotic heart disease of native coronary artery without angina pectoris; R19.7 Diarrhea, unspecified; G40.909 Epilepsy, unspecified, not intractable, without status epilepticus; I95.9 Hypotension, unspecified; E11.42 Type 2 diabetes mellitus with diabetic polyneuropathy; K29.50 Unspecified chronic gastritis without bleeding; K29.00 Acute gastritis without bleeding; K44.9 Diaphragmatic hernia without obstruction or gangrene; D32.0 Benign neoplasm of cerebral meninges; J40 Bronchitis, not specified as acute or chronic; R62.7 Adult failure to thrive; I69.991 Dysphagia following unspecified cerebrovascular disease; R74.0 Nonspecific elevation of levels of transaminase and lactic acid dehydrogenase [LDH]; K62.4 Stenosis of anus and rectum
CPT/HCPCS: 36415; 36430; 36600; 70551; 71045; 76700; 77012; 80048; 80053; 80202; 81001; 82270; 82436; 82728; 82803; 82962; 83540; 83605; 83615; 83735; 83930; 83935; 84100; 84133; 84145; 84300; 84443; 85014; 85018; 85025; 85049; 85362; 85378; 85384; 85610; 85651; 85670; 85730; 86022; 86038; 86644; 86706; 86803; 86850; 86900; 86901; 86920; 87040; 87045; 87075; 87081; 87086; 87340; 88305; 88311; 88312; 88313; 88341; 88342; 90935; 93005; 93971; 94640; 94660; 99285-25

== ENCOUNTER 2017-06-21 08:31 | Inpatient (IN) | payer OTHER ==
[2017-06-21] MEDS ORDERED: ACETAMINOPHEN 325 MG SUPP PR (08:38)
[2017-06-21] MEDS ORDERED: ACETAMINOPHEN 650 MG SUPP PR (08:41)
[2017-06-21] MEDS: SODIUM CHLORIDE 0.9% 1L BAG IV* (08:54)
[2017-06-21] MEDS: SOD CHLORIDE 0.9% 500 ML IVPB ×4 (09:13→12:56)
[2017-06-21] MEDS: CEFEPIME 2GM/50 ML (PMX) 50 ML IVPB (09:16)
[2017-06-21] MEDS: VANCOMYCIN 1 GM (PMX) 250 ML IVPB (09:17)
[2017-06-21 09:41] LABS: ABNORMAL IP MESSAGE 1; HEMATOCRIT 33.7 % (37.0-47.0); HEMOGLOBIN 10.5 g/dl (12.0-16.0); MEAN CORPUSCULAR HEMOGLOBIN 30.4 pg (29.0-33.0); MEAN CORPUSCULAR HGB CONC 31.2 g/dl (32.0-37.0); MEAN CORPUSCULAR VOLUME 97.7 fl (82.0-101.0); MEAN PLATELET VOLUME 10.9 fl (7.4-10.4); NUCLEATED RED BLOOD CELLS% 1.3 /100WBC (0.0-0.0); PLATELET COUNT 154 10^3/UL (140-415); RED BLOOD COUNT 3.45 10^6/ul (4.20-5.40); RED CELL DISTRIBUTION WIDTH 23.5 % (11.5-14.5)
[2017-06-21 09:41] LABS: WHITE BLOOD COUNT 8.4 10^3/ul (4.8-10.8)
[2017-06-21 09:44] LABS: ADD MAN DIFF? YES; POSITIVE DIFF @See below
[2017-06-21 09:45] LABS: AADO2 Arterial 127.1 mmHg (7.0-24.0); Allen Test ACCEPTAB; Arterial Base Excess 1.4 mmol/L (-3.0-3); Arterial Blood Gas Oxygen Sat 95.1 mmHG (95.0-98.0); Arterial COHb 0.1 % (0.0-3.0); Arterial Fraction of Oxyhgb 94.9 % (93.0-99.0); Arterial HCO3 24.8 mmol/L (22.0-26.0); Arterial MetHb 0.1 % (0.0-1.5); Arterial Total Hemglobin 8.9 g/dl (12.0-18.0); Arterial pCO2 34.2 mmhg (35-45); MODE NASAL CANNULA; Site Right Radial
[2017-06-21 09:50] LABS: UR BACTERIA FEW /HPF (NONE SEEN); UR MUCUS MANY /HPF (NONE SEEN); UR RBC 93 /HPF (0-5); UR WBC > 182 /HPF (0-5)
[2017-06-21] MEDS: ACETAMINOPHEN 650 MG SUPP PR (09:55)
[2017-06-21 09:59] LABS: ADD UMIC YES; UR ASCORBIC ACID NEGATIVE (NEGATIVE); UR BILIRUBIN (Dip) 1+ mg/dL (NEGATIVE); UR BLOOD (Dip) 1+ mg/dL (NEGATIVE); UR CLARITY TURBID (CLEAR); UR COLOR YELLOW (YELLOW); UR GLUCOSE (Dip) NEGATIVE (NEGATIVE); UR KETONES (Dip) NEGATIVE (NEGATIVE); UR LEUKOCYTE ESTERASE (Dip) 3+ Leu/ul (NEGATIVE); UR NITRITE (Dip) NEGATIVE (NEGATIVE); UR NONSQUAMOUS EPITHELIAL CELL 7 /HPF (NONE SEEN); UR SPECIFIC GRAVITY (Dip) 1.019 (1.003-1.030); UR TOTAL PROTEIN (Dip) 3+ mg/dl (NEGATIVE); UR UROBILINOGEN (Dip) NEGATIVE (NEGATIVE)
[2017-06-21 10:01] LABS: ALANINE AMINOTRANSFERASE 25 IU/L (13-69); ALBUMIN 2.8 g/dl (3.3-4.9); ALBUMIN/GLOBULIN RATIO 0.77; ALKALINE PHOSPHATASE 430 IU/L (42-121); ANION GAP 14 (8-16); ASPARTATE AMINO TRANSFERASE 89 IU/L (15-46); BILIRUBIN,INDIRECT 0.1 mg/dl (0-1.1); BILIRUBIN,TOTAL 0.1 mg/dl (0.2-1.3); BLOOD UREA NITROGEN 54 mg/dl (7-20); CALCIUM 9.1 mg/dl (8.4-10.2); CARBON DIOXIDE 29 mmol/L (21-31); CHLORIDE 99 mmol/L (97-110); GLUCOSE 230 mg/dl (70-220); SODIUM 138 mmol/L (135-144); TOTAL PROTEIN 6.4 g/dl (6.1-8.1)
[2017-06-21 10:03] LABS: INR 1.13; PROTIME 14.7 Sec (11.9-14.9); PT RATIO 1.1
[2017-06-21 10:04] LABS: PARTIAL THROMBOPLASTIN TIME 32.1 Sec (25.0-35.0)
[2017-06-21 10:05] LABS: LACTIC ACID 4.4 mmol/L (0.5-2.0)
[2017-06-21 10:09] LABS: TROPONIN-I 0.089 ng/ml (0.00-0.12)
[2017-06-21 10:11] LABS: ANISOCYTOSIS 2+ (0-0); BAND NEUTROPHILS #M 2.7 10^3/ul (0.0-0.6); BAND NEUTROPHILS % (M) 33 % (0-4); ERYTHROBLAST% (NRBC) (M) 2 % (0-0); LYMPHOCYTES #M 2.1 10^3/ul (0.8-2.9); LYMPHOCYTES % (M) 25 % (15-51); METAMYELOCYTES #M 0.1 10^3/ul (0.0-0.0); METAMYELOCYTES %M 2 % (0-0); MICROCYTOSIS 1+ (0-0); MONOCYTE #M 0.2 10^3/ul (0.3-0.9); MONOCYTES % (M) 3 % (0-11); MYELOCYTES #M 0.1 10^3/ul (0.0-0.0); MYELOCYTES % (M) 2 % (0-0); PLATELET ESTIMATE NORMAL; POLYCHROMASIA 2+ (0-0); PROMYELOCYTES % (M) 1 % (0-0); SEG NEUT #M 3.2 10^3/ul (1.6-7.5); SEGMENTED NEUTROPHILS (M) % 35 % (39-77); SMUDGE%M 11 % (0-0)
[2017-06-21] MEDS: IOHEXOL 300MG/ML 150 ML BTL (11:57)
[2017-06-21] MEDS ORDERED: ACETAMINOPHEN 325 MG TAB PO (13:30)
[2017-06-21] MEDS ORDERED: ONDANSETRON 4 MG INJ IV ×2 (13:30→18:30)
[2017-06-21 13:48] LABS: LACTIC ACID 2.5 mmol/L (0.5-2.0)
[2017-06-21 16:25] LABS: LACTIC ACID 1.6 mmol/L (0.5-2.0)
[2017-06-21] MEDS ORDERED: LORAZEPAM 0.5 MG TAB GTB (18:30)
[2017-06-21] MEDS ORDERED: NACL 0.9% 3 ML SYG IV (18:30)
[2017-06-21] MEDS: DEXTROSE 5%-0.45% NACL 1,000 ML IV (18:45)
[2017-06-21] MEDS: LEVETIRACETAM 500 MG TAB GTB (18:58)
[2017-06-21] MEDS ORDERED: DEXTROSE 50% 50 ML SYRINGE IV ×2 (19:00)
[2017-06-21] MEDS ORDERED: GLUCOSE GEL 15 GRAM TUBE BUCCAL (19:00)
[2017-06-21] MEDS ORDERED: GLUCAGON 1 MG INJ IM (19:00)
[2017-06-21] MEDS ORDERED: GLUCOSE GEL 15 GRAM TUBE PO ×2 (19:00)
[2017-06-21] MEDS: L ACIDOPHIL/B LACTIS/B LONGUM CAPSULE PO (23:03)
[2017-06-21] MEDS: DICYCLOMINE 10 MG CAP GTB (23:04)
[2017-06-21] MEDS: INSULIN ASPART [NOVOLOG] 3 ML PEN SC (23:38)
[2017-06-21] MEDS: SOD CHLORIDE 0.9% 500 ML IV (23:55)
[2017-06-22] MEDS: SOD CHLORIDE 0.9% 500 ML IV (00:40)
[2017-06-22] MEDS ORDERED: NORepinephrine 8MG/250 ML (PMX 250 ML (01:29)
[2017-06-22] MEDS: ACCU-CHEK XX (01:35)
[2017-06-22] MEDS: NORepinephrine 8MG/250 ML (PMX 250 ML IV (01:44)
[2017-06-22 05:39] LABS: ABNORMAL IP MESSAGE 1; HEMATOCRIT 26.1 % (37.0-47.0); HEMOGLOBIN 8.2 g/dl (12.0-16.0); MEAN CORPUSCULAR HEMOGLOBIN 30.1 pg (29.0-33.0); MEAN CORPUSCULAR HGB CONC 31.4 g/dl (32.0-37.0); MEAN PLATELET VOLUME 11.6 fl (7.4-10.4); PLATELET COUNT 106 10^3/UL (140-415); RED BLOOD COUNT 2.72 10^6/ul (4.20-5.40); RED CELL DISTRIBUTION WIDTH 23.5 % (11.5-14.5)
[2017-06-22 05:39] LABS: WHITE BLOOD COUNT 7.7 10^3/ul (4.8-10.8)
[2017-06-22] MEDS: PANTOPRAZOLE 40 MG INJ IV (06:20)
[2017-06-22 06:22] LABS: POSITIVE DIFF @See below
[2017-06-22 06:23] LABS: ADD MAN DIFF? YES
[2017-06-22 06:30] LABS: ALANINE AMINOTRANSFERASE 27 IU/L (13-69); ALBUMIN 1.9 g/dl (3.3-4.9); ALBUMIN/GLOBULIN RATIO 0.61; ALKALINE PHOSPHATASE 226 IU/L (42-121); ANION GAP 12 (8-16); ASPARTATE AMINO TRANSFERASE 40 IU/L (15-46); BLOOD UREA NITROGEN 58 mg/dl (7-20); CARBON DIOXIDE 20 mmol/L (21-31); CHLORIDE 108 mmol/L (97-110); CREATININE 2.73 mg/dl (0.44-1.00); GLUCOSE 232 mg/dl (70-220); POTASSIUM 3.8 mmol/L (3.5-5.1); SODIUM 136 mmol/L (135-144)
[2017-06-22 08:00] LABS: ANISOCYTOSIS 2+ (0-0); BAND NEUTROPHILS #M 4.2 10^3/ul (0.0-0.6); BAND NEUTROPHILS % (M) 55 % (0-4); BURR CELLS 1+ (0-0); LYMPHOCYTES #M 1.1 10^3/ul (0.8-2.9); LYMPHOCYTES % (M) 15 % (15-51); MICROCYTOSIS 1+ (0-0); MONOCYTE #M 0.6 10^3/ul (0.3-0.9); MONOCYTES % (M) 8 % (0-11); MYELOCYTES % (M) 1 % (0-0); PLATELET ESTIMATE DECREASED; POIKILOCYTOSIS 1+ (0-0); POLYCHROMASIA 3+ (0-0); PROMYELOCYTES % (M) 1 % (0-0); REACTIVE LYMPHOCYTES #M 0.1 10^3/ul (0.0-0.0); REACTIVE LYMPHOCYTES% (M) 2 % (0-0); SEG NEUT #M 1.7 10^3/ul (1.6-7.5); SEGMENTED NEUTROPHILS (M) % 18 % (39-77); SMUDGE%M 10 % (0-0)
[2017-06-22] MEDS: ASCORBIC ACID 500 MG TAB GTB (09:00)
[2017-06-22] MEDS: DICYCLOMINE 10 MG CAP GTB ×2 (09:00→21:19)
[2017-06-22] MEDS: MULTIVITAMINS/MINERALS TAB PO (09:00)
[2017-06-22] MEDS: CEFEPIME 1GM/50 ML (PMX) 50 ML IVPB (09:00)
[2017-06-22] MEDS: L ACIDOPHIL/B LACTIS/B LONGUM CAPSULE PO ×2 (09:00→21:53)
[2017-06-22] MEDS: ASPIRIN 81 MG TAB GTB (09:00)
[2017-06-22] MEDS: LEVETIRACETAM 500 MG TAB GTB ×2 (09:00→21:19)
[2017-06-22] MEDS: DEXTROSE 5%-0.45% NACL 1,000 ML IV ×3 (09:30→17:53)
[2017-06-22] MEDS: INSULIN ASPART [NOVOLOG] 3 ML PEN SC ×4 (09:30→17:18)
[2017-06-22] MEDS: LIDOCAINE 1% (MPF) 5 ML VIAL SC (10:00)
[2017-06-22] MEDS: Discontinue current oral sulfonylureas (glyburide, glipizide, and/or glimepiride) prior to XX (15:17)
[2017-06-22] MEDS: HYPOGLYCEMIA PROTOCOL when Glucose is <70 mg/dL or symptomatic <90 mg/dL. XX (15:17)
[2017-06-22] MEDS: CHOLESTYRAMINE 4 GM PACKET PEG (21:19)
[2017-06-23] MEDS: ACCU-CHEK XX (01:42)
[2017-06-23] MEDS: INSULIN ASPART [NOVOLOG] 3 ML PEN SC ×4 (04:07→17:48)
[2017-06-23 06:34] LABS: ALANINE AMINOTRANSFERASE 25 IU/L (13-69); ALBUMIN 1.9 g/dl (3.3-4.9); ALBUMIN/GLOBULIN RATIO 0.67; ALKALINE PHOSPHATASE 227 IU/L (42-121); ANION GAP 12 (8-16); ASPARTATE AMINO TRANSFERASE 59 IU/L (15-46); BLOOD UREA NITROGEN 66 mg/dl (7-20); CALCIUM 6.8 mg/dl (8.4-10.2); CARBON DIOXIDE 19 mmol/L (21-31); CHLORIDE 107 mmol/L (97-110); CREATININE 3.01 mg/dl (0.44-1.00); GLUCOSE 248 mg/dl (70-220); POTASSIUM 3.6 mmol/L (3.5-5.1); SODIUM 134 mmol/L (135-144); TOTAL PROTEIN 4.7 g/dl (6.1-8.1)
[2017-06-23] MEDS: PANTOPRAZOLE 40 MG INJ IV (06:36)
[2017-06-23 08:02] LABS: ABNORMAL IP MESSAGE 1; HEMATOCRIT 25.3 % (37.0-47.0); HEMOGLOBIN 7.8 g/dl (12.0-16.0); MEAN CORPUSCULAR HEMOGLOBIN 30.2 pg (29.0-33.0); MEAN CORPUSCULAR HGB CONC 30.8 g/dl (32.0-37.0); MEAN CORPUSCULAR VOLUME 98.1 fl (82.0-101.0); MEAN PLATELET VOLUME 12.6 fl (7.4-10.4); NUCLEATED RED BLOOD CELLS% 0.4 /100WBC (0.0-0.0); PLATELET COUNT 110 10^3/UL (140-415); RED BLOOD COUNT 2.58 10^6/ul (4.20-5.40); RED CELL DISTRIBUTION WIDTH 23.6 % (11.5-14.5)
[2017-06-23 08:02] LABS: WHITE BLOOD COUNT 4.7 10^3/ul (4.8-10.8)
[2017-06-23 08:09] LABS: ADD MAN DIFF? YES; POSITIVE DIFF @See below
[2017-06-23] MEDS: ASPIRIN 81 MG TAB GTB (09:24)
[2017-06-23] MEDS: DICYCLOMINE 10 MG CAP GTB ×2 (09:24→21:21)
[2017-06-23] MEDS: L ACIDOPHIL/B LACTIS/B LONGUM CAPSULE PO ×2 (09:24→21:21)
[2017-06-23] MEDS: MULTIVITAMINS/MINERALS TAB PO (09:24)
[2017-06-23] MEDS: LEVETIRACETAM 500 MG TAB GTB ×2 (09:24→21:21)
[2017-06-23] MEDS: ASCORBIC ACID 500 MG TAB GTB (09:24)
[2017-06-23] MEDS: CHOLESTYRAMINE 4 GM PACKET PEG ×3 (09:25→21:21)
[2017-06-23] MEDS: CEFEPIME 1GM/50 ML (PMX) 50 ML IVPB (09:25)
[2017-06-23 10:18] LABS: ANISOCYTOSIS 2+ (0-0); BAND NEUTROPHILS #M 1.5 10^3/ul (0.0-0.6); BAND NEUTROPHILS % (M) 34 % (0-4); BASOPHILS % (M) 1 % (0-2); EOSINOPHILS % (M) 1 % (0-7); GIANT THROMBO% (M) 1 % (0-0); LYMPHOCYTES #M 0.8 10^3/ul (0.8-2.9); LYMPHOCYTES % (M) 18 % (15-51); MICROCYTOSIS 2+ (0-0); MONOCYTE #M 0.2 10^3/ul (0.3-0.9); MONOCYTES % (M) 6 % (0-11); PLATELET ESTIMATE DECREASED; POIKILOCYTOSIS 3+ (0-0); POLYCHROMASIA 3+ (0-0); SEGMENTED NEUTROPHILS (M) % 41 % (39-77); SMUDGE%M 15 % (0-0)
[2017-06-23 10:56] LABS: AMMONIA < 9 umol/l (9-30)
[2017-06-23] MEDS: DEXTROSE 5%-0.45% NACL 1,000 ML IV ×3 (11:15→21:24)
[2017-06-23] MEDS ORDERED: VANCOMYCIN IV PER PHARMACY XX (11:30)
[2017-06-23] MEDS ORDERED: VANCOMYCIN 1 GM 250 ML IVPB (12:30)
[2017-06-23] MEDS: VANCOMYCIN 1.25 GM in SOD CHLORIDE 0.9% 250 ML IVPB (14:26)
[2017-06-23] MEDS: MEROPENEM 500MG/50 ML (PMX) 50 ML IVPB (16:42)
[2017-06-23] MEDS: COLLAGENASE 30 GM TUBE TOP (17:46)
[2017-06-23] MEDS ORDERED: MEROPENEM 500MG/50 ML (PMX) 50 ML IVPB (21:00)
[2017-06-24] MEDS: INSULIN ASPART [NOVOLOG] 3 ML PEN SC ×5 (00:33→23:48)
[2017-06-24] MEDS: ACCU-CHEK XX (02:21)
[2017-06-24] MEDS: PANTOPRAZOLE 40 MG INJ IV (05:09)
[2017-06-24 05:17] LABS: ABNORMAL IP MESSAGE 1; ADD MAN DIFF? NO; BASOPHILS % 0.3 % (0.0-2.0); EOSINOPHILS % 0.6 % (0.0-7.0); HEMOGLOBIN 7.1 g/dl (12.0-16.0); LYMPHOCYTES # 0.8 10^3/ul (0.8-2.9); LYMPHOCYTES % 22.1 % (15.0-51.0); MEAN CORPUSCULAR HEMOGLOBIN 29.8 pg (29.0-33.0); MEAN CORPUSCULAR HGB CONC 30.9 g/dl (32.0-37.0); MEAN CORPUSCULAR VOLUME 96.6 fl (82.0-101.0); MEAN PLATELET VOLUME 12.4 fl (7.4-10.4); MONOCYTE # 0.4 10^3/ul (0.3-0.9); MONOCYTES % 9.8 % (0.0-11.0); NEUTROPHIL # 2.3 10^3/ul (1.6-7.5); NEUTROPHILS % 64.7 % (39.0-77.0); PLATELET COUNT 93 10^3/UL (140-415); RED BLOOD COUNT 2.38 10^6/ul (4.20-5.40)
[2017-06-24 05:17] LABS: WHITE BLOOD COUNT 3.6 10^3/ul (4.8-10.8)
[2017-06-24 05:24] LABS: POSITIVE DIFF @See below
[2017-06-24 05:47] LABS: ALANINE AMINOTRANSFERASE 26 IU/L (13-69); ALBUMIN 1.7 g/dl (3.3-4.9); ALBUMIN/GLOBULIN RATIO 0.58; ALKALINE PHOSPHATASE 207 IU/L (42-121); ANION GAP 10 (8-16); ASPARTATE AMINO TRANSFERASE 21 IU/L (15-46); BLOOD UREA NITROGEN 66 mg/dl (7-20); CALCIUM 6.8 mg/dl (8.4-10.2); CARBON DIOXIDE 15 mmol/L (21-31); CHLORIDE 109 mmol/L (97-110); CREATININE 3.09 mg/dl (0.44-1.00); GLUCOSE 242 mg/dl (70-220); POTASSIUM 3.4 mmol/L (3.5-5.1); SODIUM 131 mmol/L (135-144); TOTAL PROTEIN 4.6 g/dl (6.1-8.1)
[2017-06-24] MEDS: DEXTROSE 5%-0.45% NACL 1,000 ML IV ×3 (06:05→21:56)
[2017-06-24] MEDS: HEPARIN 1000 UNITS/ML 10 ML INJ CATHETER (08:02)
[2017-06-24] MEDS: LEVETIRACETAM 500 MG TAB GTB ×2 (08:44→21:55)
[2017-06-24] MEDS: L ACIDOPHIL/B LACTIS/B LONGUM CAPSULE PO ×2 (08:44→21:55)
[2017-06-24] MEDS: ASCORBIC ACID 500 MG TAB GTB (08:44)
[2017-06-24] MEDS: MULTIVITAMINS/MINERALS TAB PO (08:44)
[2017-06-24] MEDS: DICYCLOMINE 10 MG CAP GTB ×2 (08:44→21:55)
[2017-06-24] MEDS: ASPIRIN 81 MG TAB GTB (08:45)
[2017-06-24] MEDS: COLLAGENASE 30 GM TUBE TOP (08:45)
[2017-06-24] MEDS: CHOLESTYRAMINE 4 GM PACKET PEG ×3 (08:45→21:55)
[2017-06-24 09:20] LABS: ANISOCYTOSIS 2+ (0-0); BAND NEUTROPHILS #M 1.4 10^3/ul (0.0-0.6); BAND NEUTROPHILS % (M) 41 % (0-4); ERYTHROBLAST% (NRBC) (M) 1 % (0-0); GIANT THROMBO% (M) 2 % (0-0); LYMPHOCYTES #M 0.3 10^3/ul (0.8-2.9); LYMPHOCYTES % (M) 11 % (15-51); METAMYELOCYTES %M 1 % (0-0); MICROCYTOSIS 1+ (0-0); MONOCYTE #M 0.4 10^3/ul (0.3-0.9); MONOCYTES % (M) 13 % (0-11); PLATELET ESTIMATE DECREASED; POIKILOCYTOSIS 1+ (0-0); POLYCHROMASIA 3+ (0-0); PROMYELOCYTES % (M) 1 % (0-0); REACTIVE LYMPHOCYTES #M 0.3 10^3/ul (0.0-0.0); REACTIVE LYMPHOCYTES% (M) 9 % (0-0); SEG NEUT #M 0.9 10^3/ul (1.6-7.5); SEGMENTED NEUTROPHILS (M) % 24 % (39-77); SMUDGE%M 11 % (0-0)
[2017-06-24 12:29] LABS: ANION GAP 8 (8-16); BLOOD UREA NITROGEN 40 mg/dl (7-20); CALCIUM 6.9 mg/dl (8.4-10.2); CARBON DIOXIDE 22 mmol/L (21-31); CHLORIDE 108 mmol/L (97-110); CREATININE 1.82 mg/dl (0.44-1.00); GLUCOSE 187 mg/dl (70-220); POTASSIUM 3.8 mmol/L (3.5-5.1); SODIUM 134 mmol/L (135-144)
[2017-06-24 12:42] LABS: AADO2 Arterial 42.9 mmHg (7.0-24.0); Allen Test ACCEPTAB; Arterial Base Excess -1.7 mmol/L (-3.0-3); Arterial Blood Gas Oxygen Sat 94.6 mmHG (95.0-98.0); Arterial COHb 0.9 % (0.0-3.0); Arterial Fraction of Oxyhgb 93.5 % (93.0-99.0); Arterial HCO3 21.6 mmol/L (22.0-26.0); Arterial MetHb 0.3 % (0.0-1.5); Arterial Total Hemglobin 6.7 g/dl (12.0-18.0); MODE ROOM AIR; Site Right Radial
[2017-06-24 13:01] LABS: AMMONIA 13 umol/l (9-30)
[2017-06-24] MEDS: ACETAMINOPHEN 325 MG TAB PO (16:14)
[2017-06-24] MEDS: MEROPENEM 500MG/50 ML (PMX) 50 ML IVPB (16:14)
[2017-06-25] MEDS: ACCU-CHEK XX (01:50)
[2017-06-25] MEDS: CIPROFLOXACIN 250 MG TAB GTB (06:01)
[2017-06-25] MEDS: PANTOPRAZOLE 40 MG INJ IV (06:01)
[2017-06-25] MEDS: INSULIN ASPART [NOVOLOG] 3 ML PEN SC ×3 (06:03→17:28)
[2017-06-25] MEDS: DEXTROSE 5%-0.45% NACL 1,000 ML IV ×2 (07:08→13:35)
[2017-06-25 08:56] LABS: ADD MAN DIFF? NO
[2017-06-25] MEDS: ASPIRIN 81 MG TAB GTB (08:56)
[2017-06-25] MEDS: DICYCLOMINE 10 MG CAP GTB ×2 (08:56→20:27)
[2017-06-25] MEDS: ACETAMINOPHEN 325 MG TAB PO (08:56)
[2017-06-25] MEDS: ASCORBIC ACID 500 MG TAB GTB (08:56)
[2017-06-25] MEDS: COLLAGENASE 30 GM TUBE TOP (08:56)
[2017-06-25] MEDS: CHOLESTYRAMINE 4 GM PACKET PEG ×3 (08:56→20:27)
[2017-06-25] MEDS: LEVETIRACETAM 500 MG TAB GTB ×2 (08:56→20:27)
[2017-06-25] MEDS: MULTIVITAMINS/MINERALS TAB PO (08:56)
[2017-06-25] MEDS: L ACIDOPHIL/B LACTIS/B LONGUM CAPSULE PO ×2 (08:56→20:27)
[2017-06-25 09:19] LABS: ALANINE AMINOTRANSFERASE 23 IU/L (13-69); ALBUMIN 1.4 g/dl (3.3-4.9); ALBUMIN/GLOBULIN RATIO 0.53; ALKALINE PHOSPHATASE 128 IU/L (42-121); ANION GAP 11 (8-16); ASPARTATE AMINO TRANSFERASE 21 IU/L (15-46); BLOOD UREA NITROGEN 47 mg/dl (7-20); CALCIUM 6.5 mg/dl (8.4-10.2); CARBON DIOXIDE 18 mmol/L (21-31); CHLORIDE 106 mmol/L (97-110); CREATININE 2.09 mg/dl (0.44-1.00); GLUCOSE 221 mg/dl (70-220); POTASSIUM 3.8 mmol/L (3.5-5.1); SODIUM 131 mmol/L (135-144)
[2017-06-25 10:34] LABS: PHOSPHORUS 0.7 mg/dl (2.5-4.9)
[2017-06-25 10:34] LABS: MAGNESIUM 1.7 mg/dl (1.7-2.5)
[2017-06-25 10:59] LABS: WHITE BLOOD COUNT 4.3 10^3/ul (4.8-10.8)
[2017-06-25 10:59] LABS: ABNORMAL IP MESSAGE 1; HEMATOCRIT 19.8 % (37.0-47.0); MEAN CORPUSCULAR HEMOGLOBIN 29.8 pg (29.0-33.0); MEAN CORPUSCULAR HGB CONC 30.8 g/dl (32.0-37.0); MEAN CORPUSCULAR VOLUME 96.6 fl (82.0-101.0); MEAN PLATELET VOLUME 12.4 fl (7.4-10.4); PLATELET COUNT 86 10^3/UL (140-415); RED BLOOD COUNT 2.05 10^6/ul (4.20-5.40); RED CELL DISTRIBUTION WIDTH 23.1 % (11.5-14.5)
[2017-06-25 11:01] LABS: POSITIVE DIFF @See below
[2017-06-25 11:03] LABS: HEMOGLOBIN 6.1 g/dl (12.0-16.0)
[2017-06-25 11:55] LABS: ANISOCYTOSIS 2+ (0-0); BAND NEUTROPHILS #M 1.2 10^3/ul (0.0-0.6); BAND NEUTROPHILS % (M) 29 % (0-4); BASOPHILS % (M) 1 % (0-2); EOSINOPHILS % (M) 1 % (0-7); HYPOCHROMASIA 1+ (0-0); LYMPHOCYTES #M 0.8 10^3/ul (0.8-2.9); LYMPHOCYTES % (M) 19 % (15-51); METAMYELOCYTES #M 0.1 10^3/ul (0.0-0.0); METAMYELOCYTES %M 4 % (0-0); MICROCYTOSIS 2+ (0-0); MONOCYTE #M 0.3 10^3/ul (0.3-0.9); MONOCYTES % (M) 9 % (0-11); MYELOCYTES % (M) 1 % (0-0); PLATELET ESTIMATE DECREASED; POLYCHROMASIA 1+ (0-0); SEG NEUT #M 1.6 10^3/ul (1.6-7.5); SEGMENTED NEUTROPHILS (M) % 36 % (39-77); SMUDGE%M 5 % (0-0)
[2017-06-25 12:18] LABS: HEMATOCRIT 20.1 % (37.0-47.0)
[2017-06-25 12:28] LABS: HEMOGLOBIN 6.3 g/dl (12.0-16.0)
[2017-06-25] MEDS: MEROPENEM 500MG/50 ML (PMX) 50 ML IVPB (15:32)
[2017-06-25] MEDS ORDERED: SOD CHLORIDE 0.9% 1,000 ML IV (16:33)
[2017-06-25] MEDS ORDERED: HEPARIN 1000 UNITS/ML 10 ML INJ CATHETER (17:00)
[2017-06-25] MEDS ORDERED: ALBUMIN HUMAN 25% 50 ML IV (17:00)
[2017-06-25] MEDS ORDERED: SODIUM CHLORIDE 0.9% 1L BAG IV (17:00)
[2017-06-25] MEDS: POTASSIUM PHOSPHATE 40 MEQ in SOD CHLORIDE 0.9% 250 ML IVPB (17:35)
[2017-06-25] MEDS: INSULIN GLARGINE [LANtus] 3 ML PEN SC (20:29)
[2017-06-26] MEDS: INSULIN ASPART [NOVOLOG] 3 ML PEN SC ×5 (00:23→23:32)
[2017-06-26] MEDS: ACCU-CHEK XX (02:00)
[2017-06-26] MEDS: PANTOPRAZOLE 40 MG INJ IV (05:29)
[2017-06-26] MEDS: CIPROFLOXACIN 250 MG TAB GTB (05:29)
[2017-06-26] MEDS: L ACIDOPHIL/B LACTIS/B LONGUM CAPSULE PO ×2 (09:00→20:33)
[2017-06-26] MEDS: CHOLESTYRAMINE 4 GM PACKET PEG ×3 (09:00→20:33)
[2017-06-26] MEDS: DICYCLOMINE 10 MG CAP GTB ×2 (09:00→20:33)
[2017-06-26 10:09] LABS: MAGNESIUM 1.6 mg/dl (1.7-2.5)
[2017-06-26 10:09] LABS: PHOSPHORUS 1.8 mg/dl (2.5-4.9)
[2017-06-26 10:32] LABS: ALANINE AMINOTRANSFERASE 24 IU/L (13-69); ALBUMIN 1.3 g/dl (3.3-4.9); ALBUMIN/GLOBULIN RATIO 0.52; ALKALINE PHOSPHATASE 165 IU/L (42-121); ASPARTATE AMINO TRANSFERASE 15 IU/L (15-46); BLOOD UREA NITROGEN 40 mg/dl (7-20); CARBON DIOXIDE 25 mmol/L (21-31); CHLORIDE 105 mmol/L (97-110); CREATININE 1.83 mg/dl (0.44-1.00); GLUCOSE 118 mg/dl (70-220); SODIUM 135 mmol/L (135-144); TOTAL PROTEIN 3.8 g/dl (6.1-8.1)
[2017-06-26 10:42] LABS: ANION GAP 9 (8-16); CALCIUM 6.6 mg/dl (8.4-10.2); POTASSIUM 4.3 mmol/L (3.5-5.1)
[2017-06-26] MEDS: HEPARIN 1000 UNITS/ML 10 ML INJ CATHETER (12:19)
[2017-06-26] MEDS: ASPIRIN 81 MG TAB GTB (12:49)
[2017-06-26] MEDS: MULTIVITAMINS/MINERALS TAB PO (12:49)
[2017-06-26] MEDS: LEVETIRACETAM 500 MG TAB GTB ×2 (12:50→20:33)
[2017-06-26] MEDS: ASCORBIC ACID 500 MG TAB GTB (12:50)
[2017-06-26] MEDS: COLLAGENASE 30 GM TUBE TOP (12:51)
[2017-06-26 13:25] LABS: HEPATITIS B SURFACE ANTIGEN NEGATIVE (NEGATIVE)
[2017-06-26 13:42] LABS: HEPATITIS B SURFACE ANTIBODY NEGATIVE (NEGATIVE)
[2017-06-26 14:18] LABS: ADD MAN DIFF? NO
[2017-06-26 14:20] LABS: ABNORMAL IP MESSAGE 1; BASOPHILS % 0.2 % (0.0-2.0); EOSINOPHILS % 0.7 % (0.0-7.0); HEMATOCRIT 20.1 % (37.0-47.0); LYMPHOCYTES # 1.1 10^3/ul (0.8-2.9); LYMPHOCYTES % 25.8 % (15.0-51.0); MEAN CORPUSCULAR HGB CONC 31.8 g/dl (32.0-37.0); MEAN CORPUSCULAR VOLUME 94.4 fl (82.0-101.0); MEAN PLATELET VOLUME 11.9 fl (7.4-10.4); MONOCYTE # 0.4 10^3/ul (0.3-0.9); MONOCYTES % 10.3 % (0.0-11.0); NEUTROPHIL # 2.4 10^3/ul (1.6-7.5); NEUTROPHILS % 56.4 % (39.0-77.0); PLATELET COUNT 82 10^3/UL (140-415); RED BLOOD COUNT 2.13 10^6/ul (4.20-5.40); RED CELL DISTRIBUTION WIDTH 22.4 % (11.5-14.5)
[2017-06-26 14:20] LABS: WHITE BLOOD COUNT 4.3 10^3/ul (4.8-10.8)
[2017-06-26 14:29] LABS: HEMOGLOBIN 6.4 g/dl (12.0-16.0); POSITIVE DIFF @See below
[2017-06-26 14:41] LABS: ALANINE AMINOTRANSFERASE 25 IU/L (13-69); ALBUMIN 1.6 g/dl (3.3-4.9); ALBUMIN/GLOBULIN RATIO 0.55; ALKALINE PHOSPHATASE 185 IU/L (42-121); ANION GAP 6 (8-16); ASPARTATE AMINO TRANSFERASE 17 IU/L (15-46); BILIRUBIN,INDIRECT 0.1 mg/dl (0-1.1); BILIRUBIN,TOTAL 0.1 mg/dl (0.2-1.3); BLOOD UREA NITROGEN 29 mg/dl (7-20); CALCIUM 6.6 mg/dl (8.4-10.2); CARBON DIOXIDE 29 mmol/L (21-31); CHLORIDE 103 mmol/L (97-110); CREATININE 1.48 mg/dl (0.44-1.00); GLUCOSE 156 mg/dl (70-220); MAGNESIUM 1.6 mg/dl (1.7-2.5); PHOSPHORUS 1.7 mg/dl (2.5-4.9); POTASSIUM 3.9 mmol/L (3.5-5.1); SODIUM 134 mmol/L (135-144); TOTAL PROTEIN 4.5 g/dl (6.1-8.1)
[2017-06-26 15:02] LABS: AHG CROSSMATCH 1 2
[2017-06-26] MEDS: FUROSEMIDE 40 MG INJ IV ×2 (16:46→17:46)
[2017-06-26] MEDS: MEROPENEM 500MG/50 ML (PMX) 50 ML IVPB (18:03)
[2017-06-26] MEDS: INSULIN GLARGINE [LANtus] 3 ML PEN SC (20:35)
[2017-06-27] MEDS: ACCU-CHEK XX (02:04)
[2017-06-27] MEDS: INSULIN ASPART [NOVOLOG] 3 ML PEN SC ×3 (05:57→17:10)
[2017-06-27] MEDS: PANTOPRAZOLE 40 MG INJ IV (05:57)
[2017-06-27] MEDS: CIPROFLOXACIN 250 MG TAB GTB (05:58)
[2017-06-27] MEDS: ASCORBIC ACID 500 MG TAB GTB (08:49)
[2017-06-27] MEDS: MULTIVITAMINS/MINERALS TAB PO (08:49)
[2017-06-27] MEDS: LEVETIRACETAM 500 MG TAB GTB ×2 (08:49→20:41)
[2017-06-27] MEDS: CHOLESTYRAMINE 4 GM PACKET PEG ×3 (08:49→20:40)
[2017-06-27] MEDS: DICYCLOMINE 10 MG CAP GTB ×2 (08:49→20:40)
[2017-06-27] MEDS: L ACIDOPHIL/B LACTIS/B LONGUM CAPSULE PO ×2 (08:49→20:41)
[2017-06-27] MEDS: ASPIRIN 81 MG TAB GTB (08:49)
[2017-06-27] MEDS: COLLAGENASE 30 GM TUBE TOP (08:50)
[2017-06-27 10:06] LABS: WHITE BLOOD COUNT 5.1 10^3/ul (4.8-10.8)
[2017-06-27 10:06] LABS: ABNORMAL IP MESSAGE 1; HEMATOCRIT 23.5 % (37.0-47.0); HEMOGLOBIN 7.4 g/dl (12.0-16.0); MEAN CORPUSCULAR HEMOGLOBIN 29.7 pg (29.0-33.0); MEAN CORPUSCULAR HGB CONC 31.5 g/dl (32.0-37.0); MEAN CORPUSCULAR VOLUME 94.4 fl (82.0-101.0); MEAN PLATELET VOLUME 12.4 fl (7.4-10.4); PLATELET COUNT 95 10^3/UL (140-415); RED BLOOD COUNT 2.49 10^6/ul (4.20-5.40); RED CELL DISTRIBUTION WIDTH 20.7 % (11.5-14.5)
[2017-06-27 10:08] LABS: ADD MAN DIFF? YES; POSITIVE DIFF @See below
[2017-06-27 10:43] LABS: ANION GAP 8 (8-16); BLOOD UREA NITROGEN 41 mg/dl (7-20); CALCIUM 6.8 mg/dl (8.4-10.2); CARBON DIOXIDE 26 mmol/L (21-31); CHLORIDE 104 mmol/L (97-110); CREATININE 1.89 mg/dl (0.44-1.00); GLUCOSE 149 mg/dl (70-220); SODIUM 134 mmol/L (135-144)
[2017-06-27] MEDS: VANCOMYCIN 1 GM 250 ML IVPB (13:52)
[2017-06-27] MEDS: MEROPENEM 500MG/50 ML (PMX) 50 ML IVPB (16:42)
[2017-06-27] MEDS ORDERED: HEPARIN 1000 UNITS/ML 10 ML INJ CATHETER (18:30)
[2017-06-27] MEDS ORDERED: SODIUM CHLORIDE 0.9% 1L BAG IV (18:30)
[2017-06-27] MEDS: ACETAMINOPHEN 325 MG TAB PO (20:41)
[2017-06-27] MEDS: INSULIN GLARGINE [LANtus] 3 ML PEN SC (20:51)
[2017-06-28] MEDS: ACCU-CHEK XX (01:28)
[2017-06-28] MEDS: INSULIN ASPART [NOVOLOG] 3 ML PEN SC ×4 (05:32→17:06)
[2017-06-28] MEDS: CIPROFLOXACIN 250 MG TAB GTB (05:33)
[2017-06-28] MEDS: PANTOPRAZOLE 40 MG INJ IV (05:33)
[2017-06-28 07:15] LABS: ADD MAN DIFF? NO
[2017-06-28 07:52] LABS: ANION GAP 13 (8-16); BLOOD UREA NITROGEN 51 mg/dl (7-20); CARBON DIOXIDE 22 mmol/L (21-31); CHLORIDE 105 mmol/L (97-110); CREATININE 2.24 mg/dl (0.44-1.00); GLUCOSE 113 mg/dl (70-220); POTASSIUM 4.5 mmol/L (3.5-5.1); SODIUM 135 mmol/L (135-144)
[2017-06-28] MEDS: COLLAGENASE 30 GM TUBE TOP (08:53)
[2017-06-28 08:59] LABS: WHITE BLOOD COUNT 5.2 10^3/ul (4.8-10.8)
[2017-06-28 08:59] LABS: ABNORMAL IP MESSAGE 1; BASOPHILS % 0.4 % (0.0-2.0); EOSINOPHILS # 0.1 10^3/ul (0.0-0.5); EOSINOPHILS % 1.3 % (0.0-7.0); HEMATOCRIT 24.9 % (37.0-47.0); HEMOGLOBIN 7.9 g/dl (12.0-16.0); LYMPHOCYTES # 1.6 10^3/ul (0.8-2.9); LYMPHOCYTES % 30.4 % (15.0-51.0); MEAN CORPUSCULAR HEMOGLOBIN 29.9 pg (29.0-33.0); MEAN CORPUSCULAR HGB CONC 31.7 g/dl (32.0-37.0); MEAN CORPUSCULAR VOLUME 94.3 fl (82.0-101.0); MEAN PLATELET VOLUME 11.3 fl (7.4-10.4); MONOCYTE # 0.6 10^3/ul (0.3-0.9); MONOCYTES % 11.7 % (0.0-11.0); NEUTROPHIL # 2.7 10^3/ul (1.6-7.5); NEUTROPHILS % 51.2 % (39.0-77.0); PLATELET COUNT 106 10^3/UL (140-415); RED BLOOD COUNT 2.64 10^6/ul (4.20-5.40); RED CELL DISTRIBUTION WIDTH 19.9 % (11.5-14.5)
[2017-06-28 09:05] LABS: POSITIVE DIFF @See below
[2017-06-28] MEDS: CHOLESTYRAMINE 4 GM PACKET PEG ×3 (09:07→20:45)
[2017-06-28] MEDS: LEVETIRACETAM 500 MG TAB GTB ×2 (09:08→20:45)
[2017-06-28] MEDS: ASCORBIC ACID 500 MG TAB GTB (09:08)
[2017-06-28] MEDS: ASPIRIN 81 MG TAB GTB (09:08)
[2017-06-28] MEDS: DICYCLOMINE 10 MG CAP GTB ×2 (09:08→20:45)
[2017-06-28] MEDS: MULTIVITAMINS/MINERALS TAB PO (09:08)
[2017-06-28] MEDS: L ACIDOPHIL/B LACTIS/B LONGUM CAPSULE PO ×2 (09:08→20:45)
[2017-06-28] MEDS: ACETAMINOPHEN 325 MG TAB PO ×2 (12:33→20:45)
[2017-06-28] MEDS: MEROPENEM 500MG/50 ML (PMX) 50 ML IVPB (17:04)
[2017-06-28] MEDS: FLUCONAZOLE 100 MG TAB PO (17:04)
[2017-06-28] MEDS: VANCOMYCIN HCL 250 MG/5ML POSYG PO (18:10)
[2017-06-28] MEDS: INSULIN GLARGINE [LANtus] 3 ML PEN SC (20:56)
[2017-06-28] MEDS: ALBUMIN HUMAN 25% 50 ML IV (23:40)
[2017-06-29] MEDS: VANCOMYCIN HCL 250 MG/5ML POSYG PO ×4 (00:23→17:13)
[2017-06-29] MEDS: ACCU-CHEK XX (03:00)
[2017-06-29] MEDS ORDERED: PENDING SANTYL ORDER FOR WOUND CARE XX (03:30)
[2017-06-29] MEDS: INSULIN ASPART [NOVOLOG] 3 ML PEN SC ×4 (06:00→17:13)
[2017-06-29] MEDS: CIPROFLOXACIN 250 MG TAB GTB (06:20)
[2017-06-29] MEDS: PANTOPRAZOLE 40 MG INJ IV (06:20)
[2017-06-29 08:10] LABS: WHITE BLOOD COUNT 5.7 10^3/ul (4.8-10.8)
[2017-06-29 08:10] LABS: ABNORMAL IP MESSAGE 1; HEMATOCRIT 22.2 % (37.0-47.0); MEAN CORPUSCULAR HEMOGLOBIN 30.4 pg (29.0-33.0); MEAN CORPUSCULAR HGB CONC 31.5 g/dl (32.0-37.0); MEAN CORPUSCULAR VOLUME 96.5 fl (82.0-101.0); MEAN PLATELET VOLUME 11.9 fl (7.4-10.4); PLATELET COUNT 105 10^3/UL (140-415); RED CELL DISTRIBUTION WIDTH 19.9 % (11.5-14.5)
[2017-06-29 08:18] LABS: ADD MAN DIFF? YES; POSITIVE DIFF @See below
[2017-06-29 08:24] LABS: PHOSPHORUS 1.7 mg/dl (2.5-4.9)
[2017-06-29 08:24] LABS: MAGNESIUM 1.8 mg/dl (1.7-2.5)
[2017-06-29 08:28] LABS: ANION GAP 10 (8-16); BLOOD UREA NITROGEN 31 mg/dl (7-20); CALCIUM 7.6 mg/dl (8.4-10.2); CARBON DIOXIDE 27 mmol/L (21-31); CHLORIDE 104 mmol/L (97-110); CREATININE 1.49 mg/dl (0.44-1.00); GLUCOSE 77 mg/dl (70-220); POTASSIUM 4.2 mmol/L (3.5-5.1); SODIUM 137 mmol/L (135-144)
[2017-06-29] MEDS: COLLAGENASE 30 GM TUBE TOP (09:00)
[2017-06-29] MEDS: FLUCONAZOLE 100 MG TAB PO (09:06)
[2017-06-29] MEDS: ASCORBIC ACID 500 MG TAB GTB (09:06)
[2017-06-29] MEDS: MULTIVITAMINS/MINERALS TAB PO (09:06)
[2017-06-29] MEDS: ASPIRIN 81 MG TAB GTB (09:06)
[2017-06-29] MEDS: DICYCLOMINE 10 MG CAP GTB ×2 (09:06→20:45)
[2017-06-29] MEDS: CHOLESTYRAMINE 4 GM PACKET PEG ×3 (09:06→20:45)
[2017-06-29] MEDS: L ACIDOPHIL/B LACTIS/B LONGUM CAPSULE PO ×2 (09:06→20:45)
[2017-06-29] MEDS: LEVETIRACETAM 500 MG TAB GTB ×2 (09:06→20:45)
[2017-06-29] MEDS: ACETAMINOPHEN 325 MG TAB PO ×2 (09:20→20:45)
[2017-06-29 10:22] LABS: ANISOCYTOSIS 1+ (0-0); BAND NEUTROPHILS #M 0.9 10^3/ul (0.0-0.6); BAND NEUTROPHILS % (M) 17 % (0-4); EOSINOPHILS % (M) 3 % (0-7); GIANT THROMBO% (M) 1 % (0-0); LYMPHOCYTES #M 1.5 10^3/ul (0.8-2.9); LYMPHOCYTES % (M) 27 % (15-51); MONOCYTE #M 0.7 10^3/ul (0.3-0.9); MONOCYTES % (M) 13 % (0-11); MYELOCYTES % (M) 1 % (0-0); PLATELET ESTIMATE DECREASED; POLYCHROMASIA 2+ (0-0); SEG NEUT #M 2.3 10^3/ul (1.6-7.5); SEGMENTED NEUTROPHILS (M) % 39 % (39-77); SMUDGE%M 35 % (0-0)
[2017-06-29] MEDS: MEROPENEM 500MG/50 ML (PMX) 50 ML IVPB (17:13)
[2017-06-29] MEDS ORDERED: ALBUMIN HUMAN 25% 50 ML IV (18:30)
[2017-06-29] MEDS ORDERED: SODIUM CHLORIDE 0.9% 1L BAG IV (18:30)
[2017-06-29] MEDS: ZYVOX 600 MG TAB PO (20:45)
[2017-06-29] MEDS: INSULIN GLARGINE [LANtus] 3 ML PEN SC (20:57)
[2017-06-30] MEDS: VANCOMYCIN HCL 250 MG/5ML POSYG PO ×3 (00:09→12:17)
[2017-06-30] MEDS: ACCU-CHEK XX (02:00)
[2017-06-30] MEDS: INSULIN ASPART [NOVOLOG] 3 ML PEN SC ×4 (06:00→17:21)
[2017-06-30] MEDS: PANTOPRAZOLE 40 MG INJ IV (06:14)
[2017-06-30] MEDS: DICYCLOMINE 10 MG CAP GTB ×2 (08:18→20:27)
[2017-06-30] MEDS: FLUCONAZOLE 100 MG TAB PO (08:18)
[2017-06-30] MEDS: ASCORBIC ACID 500 MG TAB GTB (08:18)
[2017-06-30] MEDS: LEVETIRACETAM 500 MG TAB GTB ×2 (08:18→20:27)
[2017-06-30] MEDS: MULTIVITAMINS/MINERALS TAB PO (08:18)
[2017-06-30] MEDS: L ACIDOPHIL/B LACTIS/B LONGUM CAPSULE PO ×2 (08:18→20:27)
[2017-06-30] MEDS: CHOLESTYRAMINE 4 GM PACKET PEG ×3 (08:18→20:27)
[2017-06-30] MEDS: ZYVOX 600 MG TAB PO ×2 (08:18→20:27)
[2017-06-30] MEDS: ASPIRIN 81 MG TAB GTB (08:19)
[2017-06-30] MEDS: COLLAGENASE 30 GM TUBE TOP (08:19)
[2017-06-30 08:33] LABS: ABNORMAL IP MESSAGE 1; HEMATOCRIT 22.2 % (37.0-47.0); MEAN CORPUSCULAR HEMOGLOBIN 29.5 pg (29.0-33.0); MEAN CORPUSCULAR HGB CONC 31.1 g/dl (32.0-37.0); MEAN CORPUSCULAR VOLUME 94.9 fl (82.0-101.0); MEAN PLATELET VOLUME 11.8 fl (7.4-10.4); PLATELET COUNT 121 10^3/UL (140-415); RED BLOOD COUNT 2.34 10^6/ul (4.20-5.40); RED CELL DISTRIBUTION WIDTH 19.2 % (11.5-14.5)
[2017-06-30 08:33] LABS: WHITE BLOOD COUNT 5.9 10^3/ul (4.8-10.8)
[2017-06-30 08:40] LABS: POSITIVE DIFF @See below
[2017-06-30 08:41] LABS: ADD MAN DIFF? YES; HEMOGLOBIN 6.9 g/dl (12.0-16.0)
[2017-06-30 09:01] LABS: ANION GAP 12 (8-16); BLOOD UREA NITROGEN 40 mg/dl (7-20); CALCIUM 7.2 mg/dl (8.4-10.2); CARBON DIOXIDE 25 mmol/L (21-31); CHLORIDE 104 mmol/L (97-110); CREATININE 2.09 mg/dl (0.44-1.00); GLUCOSE 96 mg/dl (70-220); POTASSIUM 3.8 mmol/L (3.5-5.1); SODIUM 137 mmol/L (135-144)
[2017-06-30 09:12] LABS: MAGNESIUM 1.8 mg/dl (1.7-2.5)
[2017-06-30 09:12] LABS: PHOSPHORUS 2.2 mg/dl (2.5-4.9)
[2017-06-30 10:53] LABS: ANISOCYTOSIS 1+ (0-0); BAND NEUTROPHILS #M 1.8 10^3/ul (0.0-0.6); BAND NEUTROPHILS % (M) 31 % (0-4); EOSINOPHILS % (M) 3 % (0-7); GIANT THROMBO% (M) 2 % (0-0); LYMPHOCYTES #M 1.2 10^3/ul (0.8-2.9); LYMPHOCYTES % (M) 22 % (15-51); MONOCYTE #M 0.8 10^3/ul (0.3-0.9); MONOCYTES % (M) 15 % (0-11); MYELOCYTES % (M) 1 % (0-0); PLATELET ESTIMATE DECREASED; POLYCHROMASIA 3+ (0-0); PROMYELOCYTES % (M) 1 % (0-0); REACTIVE LYMPHOCYTES #M 0.1 10^3/ul (0.0-0.0); REACTIVE LYMPHOCYTES% (M) 3 % (0-0); SEG NEUT #M 1.5 10^3/ul (1.6-7.5); SEGMENTED NEUTROPHILS (M) % 24 % (39-77); SMUDGE%M 8 % (0-0)
[2017-06-30] MEDS: ALBUMIN HUMAN 25% 100 ML IV ×3 (17:15→21:05)
[2017-06-30] MEDS: ACETAMINOPHEN 325 MG TAB PO (17:35)
[2017-06-30] MEDS: BALSAM PERU/CASTOR OIL 60 GM TUBE TOP (20:27)
[2017-06-30] MEDS: INSULIN GLARGINE [LANtus] 3 ML PEN SC (20:41)
[2017-06-30 21:16] LABS: AHG CROSSMATCH 1 1
[2017-07-01] MEDS: HEPARIN 1000 UNITS/ML 10 ML INJ CATHETER (01:10)
[2017-07-01] MEDS: ACCU-CHEK XX (02:00)
[2017-07-01] MEDS: ALBUMIN HUMAN 25% 100 ML IV ×2 (02:30→08:35)
[2017-07-01] MEDS: INSULIN ASPART [NOVOLOG] 3 ML PEN SC ×4 (06:00→17:23)
[2017-07-01] MEDS: PANTOPRAZOLE 40 MG INJ IV (06:29)
[2017-07-01] MEDS: CHOLESTYRAMINE 4 GM PACKET PEG ×3 (08:26→20:43)
[2017-07-01] MEDS: ASPIRIN 81 MG TAB GTB (08:26)
[2017-07-01] MEDS: ZYVOX 600 MG TAB PO ×2 (08:26→20:43)
[2017-07-01] MEDS: MULTIVITAMINS/MINERALS TAB PO (08:26)
[2017-07-01] MEDS: COLLAGENASE 30 GM TUBE TOP ×2 (08:26→09:00)
[2017-07-01] MEDS: DICYCLOMINE 10 MG CAP GTB ×2 (08:26→20:43)
[2017-07-01] MEDS: ASCORBIC ACID 500 MG TAB GTB (08:26)
[2017-07-01] MEDS: LEVETIRACETAM 500 MG TAB GTB ×2 (08:26→20:43)
[2017-07-01] MEDS: L ACIDOPHIL/B LACTIS/B LONGUM CAPSULE PO ×2 (08:26→20:43)
[2017-07-01] MEDS: FLUCONAZOLE 100 MG TAB PO (08:26)
[2017-07-01] MEDS: BALSAM PERU/CASTOR OIL 60 GM TUBE TOP ×3 (08:27→20:47)
[2017-07-01 08:59] LABS: ABNORMAL IP MESSAGE 1; HEMATOCRIT 25.3 % (37.0-47.0); HEMOGLOBIN 8.2 g/dl (12.0-16.0); MEAN CORPUSCULAR HEMOGLOBIN 30.4 pg (29.0-33.0); MEAN CORPUSCULAR HGB CONC 32.4 g/dl (32.0-37.0); MEAN CORPUSCULAR VOLUME 93.7 fl (82.0-101.0); MEAN PLATELET VOLUME 11.5 fl (7.4-10.4); PLATELET COUNT 123 10^3/UL (140-415); RED CELL DISTRIBUTION WIDTH 18.3 % (11.5-14.5)
[2017-07-01 08:59] LABS: WHITE BLOOD COUNT 5.7 10^3/ul (4.8-10.8)
[2017-07-01 09:03] LABS: POSITIVE DIFF @See below
[2017-07-01 09:04] LABS: ADD MAN DIFF? YES
[2017-07-01 09:16] LABS: ANION GAP 7 (8-16); BLOOD UREA NITROGEN 28 mg/dl (7-20); CALCIUM 7.1 mg/dl (8.4-10.2); CARBON DIOXIDE 27 mmol/L (21-31); CHLORIDE 107 mmol/L (97-110); CREATININE 1.57 mg/dl (0.44-1.00); GLUCOSE 110 mg/dl (70-220); POTASSIUM 3.4 mmol/L (3.5-5.1); SODIUM 138 mmol/L (135-144)
[2017-07-01 09:18] LABS: PHOSPHORUS 1.4 mg/dl (2.5-4.9)
[2017-07-01 09:18] LABS: MAGNESIUM 1.8 mg/dl (1.7-2.5)
[2017-07-01 10:01] LABS: ANISOCYTOSIS 1+ (0-0); BAND NEUTROPHILS #M 1.4 10^3/ul (0.0-0.6); BAND NEUTROPHILS % (M) 26 % (0-4); EOSINOPHILS % (M) 4 % (0-7); ERYTHROBLAST% (NRBC) (M) 1 % (0-0); LYMPHOCYTES #M 0.2 10^3/ul (0.8-2.9); LYMPHOCYTES % (M) 5 % (15-51); METAMYELOCYTES #M 0.1 10^3/ul (0.0-0.0); METAMYELOCYTES %M 2 % (0-0); MONOCYTE #M 0.7 10^3/ul (0.3-0.9); MONOCYTES % (M) 13 % (0-11); MYELOCYTES #M 0.1 10^3/ul (0.0-0.0); MYELOCYTES % (M) 2 % (0-0); PLATELET ESTIMATE DECREASED; POLYCHROMASIA 3+ (0-0); REACTIVE LYMPHOCYTES #M 0.1 10^3/ul (0.0-0.0); REACTIVE LYMPHOCYTES% (M) 3 % (0-0); SEG NEUT #M 2.6 10^3/ul (1.6-7.5); SEGMENTED NEUTROPHILS (M) % 45 % (39-77); SMUDGE%M 22 % (0-0)
[2017-07-01] MEDS: ACETAMINOPHEN 325 MG TAB PO (12:05)
[2017-07-01] MEDS ORDERED: POTASSIUM PHOSPHATE 40 MEQ in SOD CHLORIDE 0.9% 250 ML IVPB (18:00)
[2017-07-01] MEDS: INSULIN GLARGINE [LANtus] 3 ML PEN SC (20:46)
[2017-07-02] MEDS ORDERED: ACETAMINOPHEN 325 MG TAB PO (01:30)
[2017-07-02] MEDS ORDERED: morphine LIQ (20 MG/ML PO SYG) SL (01:30)
[2017-07-02] MEDS ORDERED: HYOSCYAMINE 0.125 MG SUBL TAB SL (01:30)
[2017-07-02] MEDS ORDERED: LORAZEPAM 2 MG INJ IV (01:30)
[2017-07-02] MEDS ORDERED: ONDANSETRON 4 MG INJ IV (01:30)
[2017-07-02] MEDS ORDERED: BISACODYL 10 MG SUPP PR (01:30)
[2017-07-02] MEDS: LORAZEPAM 2 MG INJ IV ×3 (01:47→18:03)
[2017-07-02] MEDS: morphine LIQ (20 MG/ML PO SYG) SL ×2 (05:41→13:36)
[2017-07-02] MEDS: LEVETIRACETAM 500 MG (PMX) 100 ML IVPB ×2 (10:34→21:00)
[2017-07-02] MEDS: morphine (DRIP) 100 MG/100 ML 100 ML IV (18:21)
[2017-07-03] MEDS ORDERED: ATROPINE 1% 5 ML OPH SL (00:30)
[2017-07-03] MEDS: LORAZEPAM 2 MG INJ IV (01:30)
== END 2017-07-03 02:30 | disposition expired | DRG 871 ==
LOC: ICU 06-22 00:25 → MS1 07-02 11:37 → E/R 08:31 → MS4 06-24 19:57
PROC: 5A1D70Z Performance of Urinary Filtration, Intermittent, Less than 6 Hours Per Day (ICD-10-PCS; principal; 2017-06-24)
PROC: 30233N1 Transfusion of Nonautologous Red Blood Cells into Peripheral Vein, Percutaneous Approach (ICD-10-PCS; 2017-06-25)
DX: A41.52 Sepsis due to Pseudomonas (principal); R65.21 Severe sepsis with septic shock; J69.0 Pneumonitis due to inhalation of food and vomit; G93.40 Encephalopathy, unspecified; N18.6 End stage renal disease; L89.153 Pressure ulcer of sacral region, stage 3; J18.9 Pneumonia, unspecified organism; I13.2 Hypertensive heart and chronic kidney disease with heart failure and with stage 5 chronic kidney disease, or end stage renal disease; K55.9 Vascular disorder of intestine, unspecified; K62.6 Ulcer of anus and rectum; I50.30 Unspecified diastolic (congestive) heart failure; N39.0 Urinary tract infection, site not specified; E46 Unspecified protein-calorie malnutrition; D61.818 Other pancytopenia; I82.C11 Acute embolism and thrombosis of right internal jugular vein; I82.621 Acute embolism and thrombosis of deep veins of right upper extremity; K62.4 Stenosis of anus and rectum; I73.9 Peripheral vascular disease, unspecified; I70.0 Atherosclerosis of aorta; E11.40 Type 2 diabetes mellitus with diabetic neuropathy, unspecified; E11.21 Type 2 diabetes mellitus with diabetic nephropathy; E83.39 Other disorders of phosphorus metabolism; E11.22 Type 2 diabetes mellitus with diabetic chronic kidney disease; D73.5 Infarction of spleen; R13.10 Dysphagia, unspecified; R60.0 Localized edema; R62.7 Adult failure to thrive; R19.7 Diarrhea, unspecified; G40.909 Epilepsy, unspecified, not intractable, without status epilepticus; D63.1 Anemia in chronic kidney disease; I46.8 Cardiac arrest due to other underlying condition; D32.0 Benign neoplasm of cerebral meninges; Y95 Nosocomial condition; Z68.25 Body mass index [BMI] 25.0-25.9, adult; Z99.2 Dependence on renal dialysis; Z86.718 Personal history of other venous thrombosis and embolism; Z93.1 Gastrostomy status; Z87.11 Personal history of peptic ulcer disease; Z79.82 Long term (current) use of aspirin; Z79.4 Long term (current) use of insulin; Z66 Do not resuscitate; Z51.5 Encounter for palliative care
CPT/HCPCS: 36415; 36430; 36600; 70450; 71045; 74177; 80048; 80053; 80202; 81001; 82140; 82803; 82962; 83605; 83735; 84100; 84484; 85014; 85018; 85025; 85610; 85730; 86706; 86850; 86860; 86870; 86880; 86900; 86901; 86920; 86970; 87040; 87045; 87075; 87081; 87086; 87340; 87400; 90935; 93005; 93971; 96374; 96375; 99291-25